=== PATIENT | male | born 1995 | race Caucasian/White ===

== ENCOUNTER → 2024-03-20 | Outpatient (CLI) | payer BC, SELFPAY ==
--- NOTE | 2024-03-20 15:25 | MRI_ITS ---
STUDY: MRI LEFT KNEE REASON FOR EXAM: Male, 28 years old. Pain. TECHNIQUE: Standardized fat and water weighted pulse sequences were obtained in all 3 orthogonal planes. COMPARISON: None. FINDINGS: Normal medial meniscus. Normal hyaline cartilage of the medial femorotibial compartment. Normal medial femoral condyle and tibial plateau. Normal medial collateral ligamentous complex (MCL). Normal distal semimembranosus, gracilis and semitendinosus tendons. Normal lateral meniscus. Normal hyaline cartilage of the lateral femorotibial compartment. Normal lateral femoral condyle and tibial plateau. Normal proximal tibiofibular articulation. Normal lateral collateral (fibular) ligament. Normal popliteus tendon. Normal biceps femoris tendon. Normal anterior cruciate ligament (ACL). Normal posterior cruciate ligament (PCL). Normal congruent patellofemoral articulation. Normal hyaline cartilage of the patellofemoral compartment. Normal medial and lateral patellar retinaculum. Normal quadriceps tendon. Normal patellar tendon. Normal Hoffa''s fat pad. There is a small volume joint effusion. The soft tissues are unremarkable. The otherwise visualized osseous structures are unremarkable. MRI/Lower Ext Joint Only (Routine) IMPRESSION: No ligamentous or meniscal tear. Small joint effusion. Electronically Signed: John Rodgers MD at 8:43 EDT ,
== END | disposition home or self-care (01) ==
LOC: MRI 15:20
PROVIDERS: Referring Provider Anesthesiology; Visit Provider Anesthesiology
DX: M25.562 Pain in left knee (principal)
CPT/HCPCS: 73721

== ENCOUNTER → 2025-01-12 | Outpatient (CLI) | payer BC, SELFPAY ==
--- NOTE | 2025-01-12 18:37 | CT_ITS ---
PROCEDURE: SINUS/FACIAL BONE REASON FOR EXAM: SINUSITIS TECHNIQUE: CT of the paranasal sinuses without contrast. Coronal and Sagittal reconstruction series were provided. One or more dose reduction techniques were used (e.g., Automated exposure control, adjustment of the mA and/or kV according to patient size, use of iterative reconstruction technique). CTDIvol: 33.1 mGy DLP: 871 mGy-cm COMPARISON: None FINDINGS: Frontal: Unremarkable. The frontal recesses appear to be patent. Ethmoid: Trace opacification of an air cell in the right mid aspect of the ethmoid sinus (series 4, image 93). Sphenoid: Mucous retention cyst along the sphenoid septum. The sphenoethmoidal recesses appear slightly narrowed. Maxillary: There is communication of the maxillary sinuses with the middle meatus bilaterally, likely postoperative. Mild polypoid mucosal thickening at the floor of the left maxillary sinus, and at the lateral aspect of the right maxillary sinus. The ostiomeatal complexes are patent bilaterally. Turbinates: Right-sided nasal alanis bullosa. Nasal Septum: There is slight leftward deviation of the anterior nasal septum. Mastoids/Middle Ears: Unremarkable CT/Sinus/Facial Bone IMPRESSION: Minimal sinus disease as detailed above, without significant drainage pathway o bstruction. Reading Location: [facility]
== END | disposition home or self-care (01) ==
PROVIDERS: Visit Provider Otolaryngology
DX: J32.8 Other chronic sinusitis (principal)
CPT/HCPCS: 70486

== ENCOUNTER 2025-04-24 07:16 | Day surgery (SDC) | payer BC, SELFPAY ==
[2025-04-24] MEDS: Lidocaine Jelly 2% 20 ML Syringe (URO-JET) 1 APPLIC (07:24)
[2025-04-24 07:34] VITALS: BP 133/83; PULSE 86; RESP 16; TEMP 35.6; O2SAT 100
--- OUTSIDE RECORDS SUMMARY | 2025-04-24 07:39 | XMS RPT_ITS | CCD ---
Author Organization [facility] Care Team Providers Care Hand Binder Stripper Name Role Phone Jojo KIDD, Alvaro Covarrubias Unavailable [phone] Marco Antonio Monreal PA-C Unavailable [facility] Unavailable Physical Therapy, Gnee Parks Unavailable Orthopedic Provider Unavailable Unavailable [facility], Orthopedics Dept. Unavailable [facility], . [facility] office Unavailable Micah JIMENEZN, Vernell Unavailable Moris KIDD, Lavell Crooks Unavailable Jesús JIMENEZN, Lizet Cervantes Unavailable Unavailable Carin Kang MA Unavailable Unavailable Constantin KIDD, Phi Castillo Unavailable Renay GRIMES, Shante Go Unavailable [phone] Tessie FRIAS, Shante Castillo Unavailable Unavaila dequan Haley RN, Mayte Martino Unavailable Unavailable Edgar GRIMES, Vivian Middleton Unavailable Rober JIMENEZN, Aniya Pino Unavailable Unavailab zoë Donnelly LPN, Caroline Tamayo Unavailable Unavailab zoë Garcia LPN, Helena Unavailable Unavailabl e Isa VP CUSTOMER SERVICE, Nida Unavailable Unavailable Unavailable Unavailable Jeane Stephenson MA Unavailable Unavailable Flor KIDD, Dr. Garces Unavailable [phone] Avani Mckinney Unavailable Unavailable Cardiology Provider Unavailable Unavailable Avani Orantes Unavailable Unavailable CARRIE GOMEZ MD Primary Care Unavailable CARRIE GOMEZ MD Attending Unavailable MARCO ANTONIO MONREAL PAC Referring Unavailable MARCO ANTONIO MONREAL PAC Consulting Unavailable CARRIE GOMEZ MD Admitting Unavailable PROVIDER, UNKNOWN Consulting Unavailable MONREAL, MARCO ANTONIO PAC Primary Care Unavailable MONREAL, MARCO ANTONIO PAC Consulting Unavailable MONREAL, MARCO ANTONIO PAC Attending Unavailable MONREAL, MARCO ANTONIO PAC Admitting Unavailable PROVIDER, UNKNOWN Consulting Unavailable MONREAL, MARCO ANTONIO PAC Consulting Unavailable MONREAL, MARCO ANTONIO PAC Admitting Unavailable MONREAL, MARCO ANTONIO PAC Attending Unavailable MONREAL, MARCO ANTONIO PAC Primary Care Unavailable PROVIDER, UNKNOWN Consulting Unavailable MONREAL, MARCO ANTONIO PAC Consulting Unavailable TRANG VILLALPANDO MD Attending Unavailabl e TRANG VILLALPANDO MD Admitting Unavailabl e TRANG VILLALPANDO MD Primary Care Unavailabl e PROVIDER, UNKNOWN Consulting Unavailable MONREAL, MARCO ANTONIO PAC Primary Care Unavailable MONREAL, MARCO ANTONOI PAC Consulting Unavailable MONREAL, MARCO ANTONIO PAC Attending Unavailable MONREAL, MARCO ANTONIO PAC Admitting Unavailable PROVIDER, UNKNOWN Consulting Unavailable MONREAL, MARCO ANTONIO PAC Primary Care Unavailable MONREAL, MARCO ANTONIO PAC Consulting Unavailable MONREAL, MARCO ANTONIO PAC Attending Unavailable MONREAL, MARCO ANTONIO PAC Admitting Unavailable PROVIDER, UNKNOWN Consulting Unavailable MONREAL, MARCO ANTONIO PAC Primary Care Unavailable MONREAL, MARCO ANTONIO PAC Consulting Unavailable MONREAL, MARCO ANTONIO PAC Attending Unavailable MONREAL, MARCO ANTONIO PAC Admitting Unavailable PROVIDER, UNKNOWN Consulting Unavailable MONREAL, MARCO ANTONIO PAC Primary Care Unavailable MONREAL, MARCO ANTONIO PAC Consulting Unavailable MONREAL, MARCO ANTONIO PAC Admitting Unavailable MONREAL, MARCO ANTONIO PAC Attending Unavailable PROVIDER, UNKNOWN Consulting Unavailable MONREAL PA-C, MARCO ANTONIO J Primary Care Physician [phone] CHRIS CHOW MD Attending Unavailable MONREAL PA-C, MARCO ANTONIO J Primary Care Unavailable [facility], . Unavailable Monreal PA, Marco Antonio Primary Care Provider Dr. Carlito Kearney MD Attending Provider Dr. Edwardo Briseno Unavailable Monreal PA, Marco Antonio Referring Provider Harsha WHITFIELDCHelena Attending Provider Monreal, Marco Antonio Primary Care Unavailable Carlito Kearney Attending Unavailabl e Monreal, Marco Antonio Primary Care Unavailable Edwrado Briseno Attending Unavailable Helena Mcleod Referring Unavailable Monreal, Marco Antonio Primary Care Unavailable Helena Mcleod Attending Unavailable Helena Mcleod Referring Unavailable Monreal, Marco Antonio Primary Care Unavailable Helena Mcleod Attending Unavailable Marco Antonio Monreal Primary Care Unavailable Marco Antonio Monreal Referring Unavailable Helena Mcleod Attending Unavailable Allergies Allergy Classification Reported Allergen(s) Allergy Type Date of Onset Reaction(s) Facility Corticosteroids (1 source) predniSONE Drug Allergy [facility]; [facility] (20 sources) predniSONE; Translations: [prednisone] Drug Allergy 5 abd. pain and bloat, abdominal pain and bloating [facility]; [facility] (20 sources) Penicillin V; Translations: [penicillin] Drug Allergy not specified [facility] ([facility] source) Penicillin Drug Allergy [facility] (1 source) predniSONE Drug Allergy [facility] (1 source) Penicillins Allergy to substance 5 unknown [facility] (1 source) Penicillins Drug allergy (disorder) 5 [facility] (1 source) predniSONE Drug Allergy 5 [facility]ository Medications Current Medications Medication Drug Class(es) Dates Sig (Normalized) Sig (Original) acetaminophen 500 mg oral capsule (3 sources) Start: 04-08-2025 take 1 capsule by mouth every six hours as needed Acetaminophen 500 mg capsule Active 500 mg PO EVERY 6 HOURS as needed April 08, 2025 12:00am Start: 01-12-2020 TYLENOL EXTRA STRENGTH 500 MG TABS 4 tabs daily ACETAMINOPHEN [id number] Alvaro Uribe MD ALPRAZolam 1 mg oral tablet (20 sources) Benzodiazepine Start: 04-07-2025 take 1 tablet by mouth three times daily as needed Alprazolam 1 mg tablet Active 1 mg PO THREE TIMES A DAY as needed April 07, 2025 12:00am Start: 02-16-2025 ALPRAZolam 1 m g tablet ; 1 (one) Tablet three times daily, as needed for 0 days Quantity: 30 {Tablet} Refills: 0 Ordered: 16-Feb-2025 CORNELIO Monreal Start: 16-Feb-2025 Comments: Medication taken as needed. OARRS 12/15/2024 Start: 12-15-2024 ALPRAZolam 1 m g tablet ; 1 (one) Tablet three times daily, as needed for 0 days Quantity: 30 {Tablet} Refills: 0 Ordered: 15-Dec-2024 CORNELIO Monreal Start: 15-Dec-2024 Comments: Medication taken as needed. OARRS 12/15/2024 Start: 10-02-2024 ALPRAZolam 1 m g tablet ; 1 (one) Tablet three times daily, as needed for 0 days Quantity: 30 {Tablet} Refills: 0 Ordered: 02-Oct-2024 CORNELIO Monreal Start: 02-Oct-2024 Comments: Medication taken as needed. OARRS 10/02/2024 Start: 08-18-2024 ALPRAZolam 1 m g tablet ; 1 (one) Tablet three times daily, as needed for 0 days Quantity: 30 {Tablet} Refills: 0 Ordered: 18-Aug-2024 CORNELIO Monreal Start: 18-Aug-2024 Comments: Medication taken as needed. OARRS 06/02/2024iscontinue Ativan Start: 12-03-2023 End: 06-02-2024 ALPRAZolam 1 mg tablet ; 1 ( one) Tablet three times daily, as needed for 0 days Quantity: 30 {Tablet} Refills: 0 Ordered: 02-Jun-2024 CORNELIO Monreal Start: 03-Dec-2023 End: 02-Jun-2024 Status: Inactive Comments: Medication taken as needed. OARRS 12/03/2023 Start: 08-14-2023 ALPRAZolam 0.5 mg tablet ; 1 (one) Tablet three times daily, as needed for 0 days Quantity: 30 {Tablet} Refills: 0 Ordered: 14-Aug-2023 CORNELIO Monreal Start: 14-Aug-2023 Comments: Medication taken as needed. OARRS 06/01/2023 Comment on above: Medication taken as needed. OARRS 06/01/2023 Medication taken as needed. OARRS 12/03/2023 Medication taken as needed. OARRS 06/02/2024iscontinue Ativan Medication taken as needed. OARRS 10/02/2024 Medication taken as needed. OARRS 12/15/2024 Azithromycin (4 sources) Macrolide Antimicrobial Start: Zithromax Z-Westley 250 mg tablet ; 2 (two) Tabs day one, then one daily for 4 days for 0 days Quantity: 1 {Packet} Refills: 0 Ordered: 26-Jan-2025 CORNELIO Monreal Start: 26-Jan-2025 ibuprofen 200 mg oral capsule (1 source) Nonsteroidal Anti-inflammatory Drug Start: take 1 capsule by mouth every six hours as needed Ibuprofen 200 mg capsule Active 200 mg PO EVERY 6 HOURS as needed April 08, 2025 12:00am 24 hr metoprolol succinate 25 mg extended release oral tablet (20 sources) beta-Adrenergic Lupe Start: take 1 tablet by mouth once daily Metoprolol Succinate 25 mg tablet extended release 24 hr Active 25 mg PO daily April 07, 2025 12:00am Start: 01-19-2025 metoprolol suc cinate ER 25 mg tablet,extended release 24 hr ; 1 (one) tablet daily for 0 days Quantity: 90 {Tablet} Refills: 1 Ordered: 19-Jan-2025 CORNELIO Monreal Start: 19-Jan-2025 Start: 12-24-2024 metoprolol suc cinate ER 25 mg tablet,extended release 24 hr ; 1 (one) tablet daily for 0 days Quantity: 30 {Tablet} Refills: 0 Ordered: 24-Dec-2024 CORNELIO Monreal Start: 24-Dec-2024 Start: 10-14-2024 take 1 tablet by rosalva once daily Metoprolol Succinate ER 25 mg oral TABLET extended release TAKE ONE TABLET BY MOUTH DAILY Start Date: 10/14/24 Status: Ordered Repeat number: 1 Start: 10-02-2024 metoprolol suc cinate ER 25 mg tablet,extended release 24 hr ; 1 (one) tablet daily for 0 days Quantity: 30 {Tablet} Refills: 2 Ordered: 02-Oct-2024 RODRIGUEZ Kurtz Start: 02-Oct-2024 ondansetron 8 mg oral tablet (20 sources) Serotonin-3 Receptor Antagonist Start: 04-07-2025 take 1 tablet by mouth three times daily as needed Ondansetron Hcl 8 mg tablet Active 8 mg PO THREE TIMES A DAY as needed April 07, 2025 12:00am Start: 04-15-2024 ondansetron HC L 8 mg tablet ; 1 (one) Tablet three times daily, as needed for 0 days Quantity: 15 {Tablet} Refills: 3 Ordered: 03-Jul-2024 CORNELIO Monreal Start: 03-Jul-2024 Comments: Medication taken as needed. Start: 02-01-2024 ondansetron HC L 4 mg tablet ; 1 (one) Tablet three times daily, as needed for 0 days Quantity: 15 {Tablet} Refills: 1 Ordered: 01-Feb-2024 CORNELIO Monreal Start: 01-Feb-2024 Comments: Medication taken as needed. Start: 09-12-2022 End: 06-01-2023 ondansetron HCL 4 mg tablet ; 1 (one) Tablet three times daily, as needed for 0 days Quantity: 15 {Tablet} Refills: 1 Ordered: 01-Jun-2023 ABHIJIT Kang Start: 12-Sep-2022 End: 01-Jun-2023 Status: Inactive Comments: Medication taken as needed. Comment on above: Medication taken as needed. pantoprazole 40 mg delayed release oral tablet (20 sources) Proton Pump Inhibitor Start: take 1 tablet by mouth once daily Pantoprazole 40 mg tablet,delayed release (DR/EC) Active 40 mg PO daily 90 April 08, 2025 12:00am once daily on an empty stomach Start: 04-08-2025 End: 04-08-2025 take 1 tablet by mouth once daily as needed Pantoprazole (Protonix) 20 mg tablet,delayed release (DR/EC) Discontinued 20 mg PO daily as needed April 08, 2025 12:00am April 08, 2025 10:01am Start: 04-15-2024 End: 10-20-2024 pantoprazole 40 mg tablet,de layed release ; 1 (one) Tablet daily for 0 days Quantity: 30 {Tablet} Refills: 5 Ordered: 20-Oct-2024 RODRIGUEZ Kurtz Start: 15-Apr-2024 End: 20-Oct-2024 Status: Inactive Start: 03-06-2022 End: 05-26-2022 take 1 tablet by mouth once daily Pantoprazole Sodium 40 MG Oral Tablet Delayed Release ; 1 (one) Tablet daily for 0 days Quantity: 30 {Tablet} Refills: 0 Ordered: 26-May-2022 RODRIGUEZ Kurtz Start: 06-Mar-2022 End: 26-May-2022 Status: Inactive take 1 tablet by rosalva twice daily Pantoprazole Sodium 40 MG Oral Tablet Delayed Release ; 1 two times daily (40 MG) Status: Inactive simethicone 250 mg oral capsule (1 source) Start: 04-08-2025 take 1 capsule by mouth once daily as needed Simethicone (Gas-X) 250 mg capsule Active 250 mg PO daily as needed April 08, 2025 12:00am Completed/Discontinued Medications Medication Drug Class(es) Dates Sig (Normalized) Sig (Original) acetaminophen 325 mg / HYDROcodone bitartrate 5 mg oral tablet (20 sources) Opioid Agonist Start: 02-19-2024 End: 02-26-2024 HYDROcodone 5 mg-acetaminophen 325 mg tablet ; 1 (one) tablet every 4-6 hours as needed for severe pain for 7 days Quantity: 28 {Tablet} Refills: 0 Ordered: 19-Feb-2024 CORNELIO Monreal Start: 19-Feb-2024 End: 26-Feb-2024 Status: Inactive Comments: Medication taken as needed. Do not exceed 4 doses in 24 hours Comment on above: Medication taken as needed. Do not exceed 4 doses in 24 hours acetaminophen 325 mg / oxyCODONE hydrochloride 5 mg oral tablet (2 sources) Opioid Agonist Start: 04-23-2014 End: 04-08-2025 Oxycodone-Acetamin ophen 1 TABLET tablet Discontinued 1 - 2 {tbl} PO EVERY 6 HOURS NEEDED as needed for Pain April 23, 2014 12:00am April 08, 2025 9:28am [id number] 200 actuat albuterol 0.09 mg/actuat metered dose inhaler (20 sources) beta2-Adrenergic Agonist Start: 05-27-2024 End: 10-20-2024 take 2 puff(s) by inhalation every four to six hours as needed Ventolin HFA 90 mcg/actuation aerosol inhaler ; 2 (two) puff(s) every 4-6hrs prn for 0 days Quantity: 1 {Each} Refills: 0 Ordered: 20-Oct-2024 RODRIGUEZ Kurtz Start: 27-May-2024 End: 20-Oct-2024 Status: Inactive amoxicillin 500 mg oral tablet (20 sources) Penicillin-class Antibacterial Start: 05-17-2018 End: 05-27-2018 take 1 tablet by mouth three times daily Amoxicillin 500 MG Oral Tablet ; 1 (one) Tablet tid for 10 days Quantity: 30 {Tablet} Refills: 0 Ordered: 17-May-2018 MD Lavell Subramanian Start: 17-May-2018 End: 27-May-2018 Status: Inactive amoxicillin 875 mg / clavulanate 125 mg oral tablet (20 sources) Penicillin-class Antibacterial Start: 12-27-2016 End: 01-06-2017 take 1 tablet by mouth twice daily at mealtime Augmentin 875-125 MG Oral Tablet ; 1 Tab two times daily for 10 days Quantity: 20 {Tablet} Refills: 0 Ordered: 03-Oct-2017 MD Lavell Subramanian Start: 27-Dec-2016 End: 06-Jan-2017 Status: Inactive Comments: Take with food Start: 10-17-2010 End: 10-27-2010 take 1.5 [tsp_us] by mouth three times daily AUGMENTIN, 250-62.5MG/5ML (Oral Suspension Reconstituted) ; 1.5 tsp tid for 10 days Quantity: 300 {Milliliter} Refills: 0 Ordered: 17-Oct-2010 MD Lavell Subramanian Start: 17-Oct-2010 End: 27-Oct-2010 Status: Inactive Comment on above: Take with food benzonatate 200 mg oral capsule (20 sources) Non-narcotic Antitussive Start: 08-18-19 25 End: 10-21-19 25 benzonatate 200 mg capsule ; 1 (one) capsule three times daily, as needed for 0 days Quantity: 30 {Capsule} Refills: 0 Ordered: 20-Oct-2024 RODRIGUEZ Kurtz Start: 18-Aug-2024 End: 20-Oct-2024 Status: Inactive Comments: Medication taken as needed. Comment on above: Medication taken as needed. 24 hr buPROPion hydrochloride 150 mg extended release oral tablet (20 sources) Aminoketone Start: 10-29-19 End: 12-22-19 take 1 tablet by mouth once daily buPROPion HCl ER (XL) 150 MG Oral Tablet Extended Release 24 Hour ; 1 (one) Tablet daily for 0 days Quantity: 60 {Tablet} Refills: 0 Ordered: 21-Dec-2021 CORNELIO Monreal Start: 28-Oct-2021 End: 21-Dec-2021 Status: Discontinued busPIRone hydrochloride 5 mg oral tablet (20 sources) Start: 05-26-20 End: 06-01-20 23 busPIRone 5 mg tablet ; 1 (one) Tablet two times daily for 0 days Quantity: 90 {Tablet} Refills: 0 Ordered: 01-Jun-2023 ABHIJIT Kanganna Start: 26-May-2022 End: 01-Jun-2023 Status: Inactive cephalexin 500 mg oral tablet (20 sources) Cephalosporin Antibacterial Start: 07-11-20 End: 07-18-20 take 1 tablet by mouth three times daily CEPHALEXIN, 500MG (Oral Tablet) ; 1 Tablet TID for 7 days Quantity: 21 {Tablet} Refills: 0 Ordered: 11-Jul-2012 CORNELIO Hernández Start: 11-Jul-2012 End: 18-Jul-2012 Status: Inactive Start: 10-12-2010 End: 10-22-2010 CEPHALEXIN, 250MG/5ML (Oral Suspension Reconstituted) ; 2 (two) Teaspoon(s) three times daily for 10 days Quantity: 300 {Milliliter} Refills: 0 Ordered: 12-Oct-2010 CORNELIO Niño Start: 12-Oct-2010 End: 22-Oct-2010 Status: Inactive doxycycline hyclate 100 mg oral tablet (20 sources) Tetracycline-class Drug Start: 07-28-2024 End: 08-07-2024 doxycycline hyclate 100 mg tablet ; 1 (one) tablet two times daily for 10 days Quantity: 20 {Tablet} Refills: 0 Ordered: 28-Jul-2024 CORNELIO Monreal Start: 28-Jul-2024 End: 07-Aug-2024 Status: Inactive famotidine 20 mg oral tablet (20 sources) Histamine-2 Receptor Antagonist Start: 07-11-2021 End: 08-10-2021 take 1 tablet by mouth twice daily Famotidine 20 MG Oral Tablet ; 1 (one) Tablet two times daily for 30 days Quantity: 60 {Tablet} Refills: 0 Ordered: 11-Jul-2021 CORNELIO Monreal Start: 11-Jul-2021 End: 10-Aug-2021 Status: Inactive take 1 tablet by rosalva th once daily as needed Famotidine 20 MG Oral Tablet ; 1 daily ( 20 MG) Status: Inactive Comments: takes as needed Comment on above: takes as needed FLUoxetine 20 mg oral capsule (20 sources) Serotonin Reuptake Inhibitor Start: 05-26-20 End: 06-01-20 FLUoxetine 20 mg capsule ; 1 (one) Capsule daily for 0 days Quantity: 60 {Capsule} Refills: 0 Ordered: 01-Jun-2023 ABHIJIT Kang Start: 26-May-2022 End: 01-Jun-2023 Status: Inactive LORazepam 1 mg oral tablet (20 sources) Benzodiazepine Start: 06-02-20 End: 08-18-19 LORazepam 1 mg tablet ; 1 (one) tablet three times daily, as needed for 0 days Quantity: 30 {Tablet} Refills: 0 Ordered: 18-Aug-2024 CORNELIO Monreal Start: 02-Jun-2024 End: 18-Aug-2024 Status: Discontinued Comments: Medication taken as needed. OAS 06/02/2024 Comment on above: Medication taken as needed. OAS 06/02/2024 naproxen 500 mg oral tablet (20 sources) Nonsteroidal Anti-inflammatory Drug Start: 03-03-20 End: 07-25-20 take 1 tablet by mouth twice daily Naproxen 500 MG Oral Tablet ; 1 (one) Tablet bid for 0 days Quantity: 60 {Tablet} Refills: 0 Ordered: 25-Jul-2019 RODRIGUEZ Kurtz Start: 03-Mar-2019 End: 25-Jul-2019 Status: Inactive oseltamivir 75 mg oral capsule (20 sources) Neuraminidase Inhibitor Start: 09-14-19 End: 09-19-19 24 oseltamivir 75 mg capsule ; 1 Capsule 2 times per day for 5 days Quantity: 10 {Capsule} Refills: 0 Ordered: 14-Sep-2023 CORNELIO Monreal Start: 14-Sep-2023 End: 7-Feb-2024 Status: Inactive predniSONE 20 mg oral tablet (20 sources) Start: 01-22-20 End: 07-11-20 take 3 tablets by mouth once daily, then take 2 tablets by mouth once daily, then take 1 tablet by mouth once daily, then take 0.5 tablet by mouth once daily predniSONE 20 MG Oral Tablet ; 1 (one) Tablet as directed for 0 days Quantity: 20 {Tablet} Refills: 0 Ordered: 11-Jul-2021 SETH Donnelly Caroline Tamayo Start: 21-Jan-2021 End: 11-Jul-2021 Status: Inactive Comments: Take 3tabs qd for 3 days thenTake 2tabs qd for 3 days thenTake 1tab qd for 3 days thenTake 1/2tab qd for 4 days. Start: 10-08-2019 End: 2020 take 3 tablets by mouth once daily, then take 2 tablets by mouth once daily, then take 1 tablet by mouth once daily, then take 0.5 tablet by mouth once daily predniSONE 20 MG Oral Tablet ; Tablet for 0 days Quantity: 20 {Tablet} Refills: 0 Ordered: 28-Jun-2020 RODRIGUEZ Kurtz Start: 08-Oct-2019 End: 28-Jun-2020 Status: Inactive Comments: Take 3tabs qd for 3 days thenTake 2tabs qd for 3 days thenTake 1tab qd for 3 days thenTake 1/2tab qd for 4 days. Comment on above: Take 3tabs qd for 3 days thenTake 2tabs qd for 3 days thenTake 1tab qd for 3 days thenTake 1/2tab qd for 4 days. sertraline 25 mg oral tablet (20 sources) Serotonin Reuptake Inhibitor Start: End: take 1 tablet by mouth once daily Sertraline HCl 25 MG Oral Tablet ; 1 (one) Tablet daily for 30 days Quantity: 30 {Tablet} Refills: 0 Ordered: 09-Sep-2020 CORNELIO Monreal Start: 09-Sep-2020 End: 09-Oct-2020 Status: Inactive sucralfate 1000 mg oral tablet (20 sources) Aluminum Complex take 1 tablet by mouth once daily Carafate 1 GM Oral Tablet ; daily (1 GM) Status: Inactive sulfamethoxazole 800 mg / trimethoprim 160 mg oral tablet (20 sources) Dihydrofolate Reductase Inhibitor Antibacterial, Sulfonamide Antimicrobial Start: 024 End: sulfamethoxazole 800 mg-trimethoprim 160 mg tablet ; 1 (one) tablet two times daily for 5 days Quantity: 10 {Tablet} Refills: 0 Ordered: 23-Jan-2024 CORNELIO Monreal Start: 23-Jan-2024 End: 28-Jan-2024 Status: Inactive SUMAtriptan 50 mg oral tablet (20 sources) Serotonin-1b and Serotonin-1d Receptor Agonist Start: 024 End: SUMAtriptan 50 mg tablet ; 1 (one) tablet as needed for 0 days Quantity: 10 {Tablet} Refills: 0 Ordered: 20-Oct-2024 RODRIGUEZ Kurtz Start: 15-Apr-2024 End: 20-Oct-2024 Status: Inactive Comments: Medication taken as needed. Comment on above: Medication taken as needed. traZODone hydrochloride 100 mg oral tablet (20 sources) Serotonin Reuptake Inhibitor Start: End: take 1 tablet by mouth at bedtime traZODone HCl 100 MG Oral Tablet ; 1 (one) Tablet at bedtime for 0 days Quantity: 90 {Tablet} Refills: 1 Ordered: 26-May-2022 CORNELIO Monreal Start: 06-Mar-2022 End: 26-May-2022 Status: Inactive Problems Active Problems Problem Classification Problem Date Documented Da te Episodic/Chronic Abdominal pain (20 sources) Abdominal pain; Translations: [Unspecified abdominal pain] 06-01-2023 Episodic Anxiety disorders (20 sources) Anxiety; Translations: [Anxiety disorder, unspecified] 08-14-2023 Chronic Cardiac dysrhythmias (20 sources) Palpitations - rapid; Translations: [Palpitations] 07-28-2024 Episodic Conditions associated with dizziness or vertigo (1 source) Dizziness 10-14-2024 Episodic Diseases of mouth; excluding dental (20 sources) Aphthous ulceration of skin and/or mucous membrane; Translations: [Recurrent oral aphthae] 06-01-2023 Episodic Disorders of teeth and jaw (20 sources) Infection of tooth; Translations: [Periapical abscess without sinus] 05-17-2018 Episodic Esophageal disorders (20 sources) Gastroesophageal reflux disease; Translations: [Gastro-esophageal reflux disease without esophagitis] 06-01-2023 Chronic Fluid and electrolyte disorders (20 sources) Hypokalemia; Translations: [Hypokalemia] 09-18-2023 Episodic Genitourinary symptoms and ill-defined conditions (20 sources) Dysuria; Translations: [Dysuria] 02-24-2019 Episodic Headache; including migraine (20 sources) Migraine; Translations: [Migraine, unspecified, not intractable, without status migrainosus] 04-15-2024 Chronic Immunizations and screening for infectious disease (20 sources) Patient encounter status; Translations: [Encounter for screening for infections with a predominantly sexual mode of transmission] 09-09-2020 Episodic Influenza (20 sources) Influenza due to Influenza B virus; Translations: [Influenza due to other identified influenza virus with other respiratory manifestations] 09-14-2023 Episodic Malaise and fatigue (20 sources) Fatigue; Translations: [Other fatigue] 06-01-2023 Episodic Mood disorders (20 sources) Major depressive disorder; Translations: [Major depressive disorder, single episode, unspecified] 06-01-2023 Chronic Nausea and vomiting (20 sources) Nausea; Translations: [Nausea] Onset: 5 06-01-2023 Episodic Nonmalignant breast conditions (20 sources) Gynecomastia; Translations: [Hypertrophy of breast] 11-14-2010 Episodic Nonspecific chest pain (20 sources) Chest pain; Translations: [Chest pain, unspecified] 06-02-2024 Episodic Other acquired deformities (2 sources) Spondylolysis; Translations: [Spondylolysis, lumbar region] Onset: 0 01-12-2020 Chronic Other connective tissue disease (2 sources) Synovial cyst; Translations: [Other bursal cyst, unspecified site] Onset: 0 01-12-2020 Episodic Other connective tissue disease (20 sources) Pain in lower limb; Translations: [Pain in leg, unspecified] 03-03-2019 Episodic Other connective tissue disease (20 sources) Disorder of back; Translations: [Other symptoms and signs involving the musculoskeletal system] 08-18-2010 Episodic Other gastrointestinal disorders (20 sources) Diarrhea; Translations: [Diarrhea, unspecified] 06-01-2023 Episodic Other gastrointestinal disorders (5 sources) Dysphagia; Translations: [Dysphagia, unspecified] 03-31-2025 Episodic Other gastrointestinal disorders (1 source) Dysphagia, unspecified; Translations: [Dysphagia, unspecified] Onset: Episodic Other gastrointestinal disorders (1 source) Other dysphagia; Translations: [Other dysphagia] Onset: Episodic Other injuries and conditions due to external causes (20 sources) Injury of shoulder region; Translations: [Unspecified injury of shoulder and upper arm, unspecified arm, initial encounter] 05-19-2016 Episodic Other injuries and conditions due to external causes (20 sources) Injury of finger; Translations: [Unspecified injury of unspecified wrist, hand and finger(s), initial encounter] 04-21-2014 Episodic Other lower respiratory disease (20 sources) Dyspnea; Translations: [Shortness of breath] 05-27-2024 Episodic Other lower respiratory disease (20 sources) Snoring; Translations: [Snoring] 05-27-2024 Episodic Other lower respiratory disease (20 sources) Cough; Translations: [Cough] 08-18-2024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 days. The course has been without change. The pain is characterized as a moderate sharp stabbing and burning sensation. The pain is described as being located in the right shoulder and is aggravated by any movement and overhead activity. There are no relieving factors. Note for Shoulder pain: He injured it playing foot ball. He tried to tackle a player , felt a pop in right shoulder. Other player even reported he felt the pop himself. No previous shoulder injuries. He strated rubbing under his axilla and felt arm pop into place. 04-28-2015 Unclassified (20 sources) Finger Injury - Pt here this afternoon because he was playing Kickball at school and pt jammed his 5th finger of left hand into another students shoulder. Finger is deformed and painful. Also ecchymotic. Has been using ice to finger since injury happened this morning. reviewed by [facility] 04-21-2014 Unclassified (20 sources) Shoulder pain - The onset of the shoulder pain has been acute and has been occurring in a persistent pattern for 6 weeks. The course has been an increasing. The pain is characterized as a moderate sharp stabbing. The pain is described as being located in the left shoulder and is aggravated by lifting. The symptoms have been associated with painful ROM. Note for Shoulder pain: Was seen in office with left shoulder injury in December. reviewed by [facility] 06-12-2012 Unclassified (20 sources) Shoulder Pain - The onset of the shoulder pain has been gradual following an incident not at work (Pt jumped off of the ground and landed on a platform and rammed left shoulder into platform. Platform was gravel.) and has been occurring for 1 day. The shoulder pain is characterized as a sharp stabbing. The shoulder pain is described as being located in the left shoulder. The shoulder pain is aggravated by any movement, overhead activity and lifting. Relieving factors include nothing (Took some ibuprofen but it ddi not help.). Note for Shoulder Pain: reviewed by [facility] 12-15-2011 Unclassified (20 sources) Neck Pain - The onset of the neck pain has been sudden and has been occurring in a persistent pattern for 2 hours. The course has been constant. The neck pain is described as a moderate sharp stabbing. The neck pain is described as being located in the midline of neck and radiating no where. Aggravating factors include twisting, flexion and extension. The pain is relieved by nothing (keeping pressure on neck seems to provide some relief). There are no associated features gait abnormality, fever, shoulder pain, arm weakness or paresthesias in arms. The neck pain was preceeded by trauma (was playing dodge ball at school this AM and dove into the wall - head snapped backward). There have been no previous diagnostic tests. There have been no previous evaluations. There has been no previous physical therapy. There has been no previous neck surgery. There has been no use of assistive devices. There has been no previous medications. 11-30-2011 Unclassified (20 sources) Back pain - The onset of the pain has been gradual (Was playing tackle football and he got tackled and someone landed on top of him and since then back has been hurting.) and has been occurring for 1 month. The course has been increasing. The pain is located in the lower back and does not radiate. Note for Back pain: Describes pain as pulling type pain. Depending on way he moves or lifts his legs depnds on pain. Dad cracked his back once and that helped a little. Uses some Ibuprofen at times and that helps little. reviewed by [facility] 10-23-2011 Unclassified (20 sources) Form Completion Physicals - The patient feels well with no complaints, has good energy level and is sleeping well. There are no current symptoms. The patient exercises weekly. The patient eats a variety of foods and sleeps on average 9 hours per night. Safety measures include appropriate use of safety belts. There are no behavioral problems. Last tetanus vaccination: Date: (2009). Note for Form Completion Physicals: Plans to play track at school - this will be his first year doing that - has played football in the past. 10-13-2011 Unclassified (20 sources) painful breast area - Painful lumps in breast areas for the last two weeks. 11-14-2010 Unclassified (20 sources) Recheck toe - pt saw [facility] for sore, swollen right great toe, some drainage. Pt is on cephalexin tid and soaks toe tid but is not getting better 10-17-2010 Unclassified (20 sources) Painful toe - Rt great toe red, swollen and painful. 2 weeks ago injured toe by kicking back of step at school - toenail actually broke off. Purulent drainage noted and still quite painful, no redness, no fever 10-12-2010 Unclassified (20 sources) Finger pain - The patient is not currently being treated for this problem. Symptoms are exacerbated by moving the finger. The injury resulted from forceful hyperextension. This occurred 4 day(s) ago at school. The pain is located in the of the left little finger. Symptoms include pain and swelling. The patient describes the pain as aching. The patient describes the pain as moderate in severity. 09-26-2010 Unclassified (20 sources) right back discomfort - Pt was injured in right side of back approximately 3 months ago. No bruise noted. Pt only c/o discomfort on and off with increased activity or twisting motion. Today pt c/o pain again with increased activity. No c/o dysuria or abd pain; no blood in urine; no increased pain after eating. No fever, no skin color changes 08-18-2010 Unclassified (20 sources) Rt toe injury - Injured rt great toe 10 days ago and has not improved. Continues with pain and swelling. 05-18-2010 Unclassified (20 sources) Cold Symptoms - Symptoms include sneezing, nasal congestion, runny nose, sore throat, dry cough, fever (102F this morning), chills, general malaise (body aches and fatigue) and headache, but do not include productive cough or wheezing. The onset was sudden hour(s) ago (Patient woke up with symptoms this morning.). The symptoms occur constantly. The patient describes this as moderate in severity and worsening. Current treatment includes non-prescription cold medication (dayquil) and acetaminophen. The patient has been exposed to an individual with similar symptoms (Patient's son recently tested positive for influenza B). Patient denies history of seasonal allergies, recurrent sinusitis, recurrent strep pharyngitis, tonsillectomy or recurrent ear infections. 09-14-2023 Unclassified (20 sources) UTI - Symptoms include dysuria, urinary frequency, abdominal pain and back pain (lower back), but do not include urinary urgency, hematuria or malodorous urine. The pain is located in the left lower abdomen, in the left lumbar area, in the right lower abdomen and in the right lumbar area. There is no radiation. The patient describes the pain as dull and aching. Onset was gradual 1 week(s) ago (1-2 weeks). There is no known event that preceded symptom onset. The symptoms occur constantly. The patient describes this as moderate in severity and worsening. Associated symptoms include chills (last night), but do not include fever, nausea, vomiting, urinary incontinence or urethral discharge. 01-23-2024 Unclassified (20 sources) Abdominal pain - The onset of the abdominal pain has been sudden and has been occurring in a persistent pattern for days. The course has been constant. The pain is described as a mild dull ache and pressure sensation. The pain is located in the right lower quadrant and left lower quadrant. The symptoms have no aggravating factors but have no relieving factors. The symptoms have been associated with constipation (maybe some), fever (Patient has felt feverish, but has not checked his temperature), heartburn, nausea and vomiting, while the symptoms have not been associated with bloating, bloody stools, chest pain, diarrhea or weight loss. Previous evaluations have included CT scan (Patient had a non contrast CT that showed only a moderate stool burden). Note for Abdominal pain: Patient reports that he was having back and flank pain and is now having abdominal pain as well.He has a history of a spinal cyst and is concerned that this could be causing his pain. 02-01-2024 Unclassified (20 sources) Abdominal pain - The onset of the abdominal pain has been sudden and has been occurring in a persistent pattern for 4 days. The course has been constant. The pain is described as a mild dull ache and pressure sensation. The pain is located in the entire abdomen and does not radiate. The symptoms have no aggravating factors but have no relieving factors. The symptoms have been associated with constipation (Patient reports that he has been having some constipation the last several days.) and nausea (Patient reports that the nausea has been going one for several weeks.), while the symptoms have not been associated with bloating, bloody stools, chest pain, diarrhea, dysuria, fever, vomiting or weight loss. Previous evaluations have included CT scan (normal CT scan earlier this year). Note for Abdominal pain: Patient reports that Zofran his helpful to a certain extent. He wonders if a higher dose would be more effective. Patient has a history of GERD and has not had any of his antacid to take.He does report that has had some increased stress with his family and other factors. He has started wearing glasses in the last month and reports an increase in the number of migraines he has. He had these only occasionally in the past. He reports that OTC medications have not been effective. 04-15-2024 Unclassified (20 sources) Breathing trouble - The onset of the breathing trouble has been gradual and has been occurring in an intermittent pattern for 1 month (Patient reports that this has been a mild problem for several years, but has progressively worsened in the last 1 month.). The course has been recurrent. The breathing trouble is mild to moderate. It is described as tightness, shortness of breath and wheezing. The breathing trouble occurs with normal activities (Patient has noted this happening when he is resting and not when he is exerting himself. He reports that it Feels like I forget to breath.). The symptoms have been associated with anxiety (Patient has a history of anxiety, but denies any increase in anxiety recently.) and wheezing, but have not been associated with chest pain, coughing, fever / chills, muscle weakness, orthopnea, palpitations, swelling of calf, swelling of feet or weight loss. Note for Breathing trouble: Patient reports that he feels congested and like he cannot breath out of his nose most of the time. He does not currently take any kind of allergy medications.Patient reports that he feels very short of breath when exposed to cigarette smoke.Patient also reports snoring and waking up short of breath during the night. 05-27-2024 Unclassified (1 source) Follow up consultation - The patient is here to follow-up after Emergency Room/Urgent Care (Patient was seen at [facility] on 05/30/2024 for Acute Dyspnea and Anxiety Reaction. No new medications were started. Patient was discharged to home.). Current symptoms include chest pain (is having pain of the center of his chest, is more of an achy pain. Is better today than it was.), headache (constant headache since Sunday) and low back pain. Note for Consultation follow-up: Patient is scheduled this Sunday for PFT testing.On Sunday and Sunday, his whole body felt sore and painful. He slept most of the day on Sunday and and rested. Patient states that he barely remembers anything from Sunday.He has an appointment with Chiropractor later this afternoon. 06-02-2024 Unclassified (20 sources) [ADDITIONAL REASON] Transition into care - The patient is transitioning into care from an emergency room ([facility] 05/30/2024) and a summary of care was reviewed. 06-02-2024 Unclassified (20 sources) Follow up consultation - The patient is here to follow-up after Emergency Room/Urgent Care (Patient was seen at [facility] on 05/30/2024 for Acute Dyspnea and Anxiety Reaction. No new medications were started. Patient was discharged to home.). Current symptoms include chest pain (is having pain of the center of his chest, is more of an achy pain. Is better today than it was.), headache (constant headache since Sunday) and low back pain. Note for Consultation follow-up: Patient is scheduled this Sunday for PFT testing.On Sunday and Sunday, his whole body felt sore and painful. He slept most of the day on Sunday and and rested. Patient states that he barely remembers anything from Sunday.He has an appointment with Chiropractor later this afternoon for his back. His back pain has been much better since he started seeing pain management and had spinal injections.Patient reports that he has had a couple more episodes of increased heart rate since discharge, but was able to calm himself down during these episodes.Patient usually takes alprazolam to help with his anxiety as needed. He finds that this medication helps, but makes him fall asleep, making him avoid using it during the day. He was given Ativan in the ER and found that he responded better to this medication. He has tried several daily medications without success in the past. 06-02-2024 Unclassified (10 sources) Transition into care - The patient is transitioning into care from an emergency room ([facility] 05/30/2024) and a summary of care was reviewed. 06-02-2024 Unclassified (10 sources) [ADDITIONAL REASON] Follow up consultation - The patient is here to follow-up after Emergency Room/Urgent Care (Patient was seen at [facility] on 05/30/2024 for Acute Dyspnea and Anxiety Reaction. No new medications were started. Patient was discharged to home.). Current symptoms include chest pain (is having pain of the center of his chest, is more of an achy pain. Is better today than it was.), headache (constant headache since Sunday) and low back pain. Note for Consultation follow-up: Patient is scheduled this Sunday for PFT testing.On Sunday and Sunday, his whole body felt sore and painful. He slept most of the day on Sunday and and rested. Patient states that he barely remembers anything from Sunday.He has an appointment with Chiropractor later this afternoon for his back. His back pain has been much better since he started seeing pain management and had spinal injections.Patient reports that he has had a couple more episodes of increased heart rate since discharge, but was able to calm himself down during these episodes.Patient usually takes alprazolam to help with his anxiety as needed. He finds that this medication helps, but makes him fall asleep, making him avoid using it during the day. He was given Ativan in the ER and found that he responded better to this medication. He has tried several daily medications without success in the past. 06-02-2024 Unclassified (1 source) Cold Symptoms - Symptoms include nasal congestion, scratchy throat, productive cough, general malaise and facial pain. The onset was gradual 1 month(s) ago. The symptoms occur constantly. The patient describes this as mild and unchanged. Current treatment includes acetaminophen and Dayquil, doxy . Risk factors do not include child in daycare or smoking. Note for Upper respiratory infection: feels like its all sitting in chest 08-18-2024 Unclassified (20 sources) Cold Symptoms - Symptoms include nasal congestion, scratchy throat, productive cough and general malaise, but do not include runny nose, ear pain, wheezing, fever, chills, headache or facial pain. The onset was gradual 1 month(s) ago. The symptoms occur constantly. The patient describes this as mild and unchanged. Current treatment includes non-prescription cold medication, antibiotics (Patient has almost completed the course of doxycycline he was started on) and acetaminophen. Risk factors do not include child in daycare or smoking. The patient has not been exposed to an individual with similar symptoms. Patient denies history of seasonal allergies, recurrent sinusitis or asthma. Note for Upper respiratory infection: Patient feels that the symptoms in his head have improved, but the symptoms in his chest have not.Patient reports that he did not have a good reaction with taking Ativan at night and would like to switch back to Xanax if possible. 08-18-2024 Unclassified (18 sources) Palpitations - The symptoms first began 2 day(s) ago (Patient has a history of recurrent palpitations, for which he has been referred to cardiology, but his symptoms have worsened in the last 2-3 days.). The onset has been spontaneous. Each episode lasts approximately 60 minutes. The symptoms occur 5 time(s) per day . The symptoms are getting worse. The palpitations are described as fast and fluttering. Associated features include arm pain (occasionally muscle tension feeling down right side), dizziness, heaviness (in face when he has heart palpitations), nausea, shortness of breath, tightness, tired/fatigue and weakness, but do not include faintness or jaw pain. There are no precipitating factors. Aggravating factors include meals (at times). There are no relieving factors. Note for Palpitations: pt states has appt at cardiology on 10/14/24 10-02-2024 Unclassified (2 sources) Follow up for multiple chronic conditions - The patient is here for follow-up of anxiety and other condition(s) (Acid Reflux, MOUSTAPHA). The patient has stopped the recommended medications (he has not taken the pantoprazole for about 4-5 months. He will take OTC Gas-X that helps with the acid reflux and burping.). The patient has an active lifestyle but no regular exercise program. The patient's out of office blood pressure checks occur occasionally (will check when he does not feel good) and dietary compliance is fairly good usually adhering to recommendations (appetite has increased). The patient states that there are no vision changes or weakness, weight has decreased (2lbs since WADE), in general mood has improved (mood is better but still has times that he will become irritable and short-tempered.) and headaches have been noticed occasionally (been happening more frequently). Note for Multiple chronic conditions follow-up: Patient states that he will being focusing on something and will have periods that he stops breathing. He becomes short of breath at rest or with activity. He is only able to breathe out of one nostril. 10-20-2024 Unclassified (13 sources) [ADDITIONAL REASON] Transition into care - The patient is transitioning into care from another physician ([facility] 10/14/2024 Dr. Chow. Patient was ordered to have echo and tilt test done ( he was advised to stop taking metoprolol two weeks before the tilt test). He has follow-up appointment in December 2024.) and an electronic summary of care was not available. 10-20-2024 Unclassified (11 sources) Follow up for multiple chronic conditions - The patient is here for follow-up of anxiety and other condition(s) (Acid Reflux, MOUSTAPHA). The patient has stopped the recommended medications (he has not taken the pantoprazole for about 4-5 months. He will take OTC Gas-X that helps with the acid reflux and burping.). The patient has an active lifestyle but no regular exercise program. The patient's out of office blood pressure checks occur occasionally (will check when he does not feel good) and dietary compliance is fairly good usually adhering to recommendations (appetite has increased). The patient states that there are no vision changes or weakness, weight has decreased (2lbs since WADE), in general mood has improved (mood is better but still has times that he will become irritable and short-tempered.) and headaches have been noticed occasionally (been happening more frequently). Note for Multiple chronic conditions follow-up: Patient states that he will being focusing on something and will have periods that he stops breathing. He becomes short of breath at rest or with activity. He is only able to breathe out of one nostril. Patient reports that he has chronic nasal congestion that has not improved with antihistamine or Flonase.Patient reports that his palpitations have been improved since starting Metoprolol. He has seen cardiology and is being scheduled for an echo and tilt test. 10-20-2024 Unclassified (2 sources) Transition into care - The patient is transitioning into care from another physician ([facility] 10/14/2024 Dr. Chow. Patient was ordered to have echo and tilt test done ( he was advised to stop taking metoprolol two weeks before the tilt test). He has follow-up appointment in December 2024.) and an electronic summary of care was not available. 10-20-2024 Unclassified (2 sources) [ADDITIONAL REASON] Follow up for multiple chronic conditions - The patient is here for follow-up of anxiety and other condition(s) (Acid Reflux, MOUSTAPHA). The patient has stopped the recommended medications (he has not taken the pantoprazole for about 4-5 months. He will take OTC Gas-X that helps with the acid reflux and burping.). The patient has an active lifestyle but no regular exercise program. The patient's out of office blood pressure checks occur occasionally (will check when he does not feel good) and dietary compliance is fairly good usually adhering to recommendations (appetite has increased). The patient states that there are no vision changes or weakness, weight has decreased (2lbs since WADE), in general mood has improved (mood is better but still has times that he will become irritable and short-tempered.) and headaches have been noticed occasionally (been happening more frequently). Note for Multiple chronic conditions follow-up: Patient states that he will being focusing on something and will have periods that he stops breathing. He becomes short of breath at rest or with activity. He is only able to breathe out of one nostril. Patient reports that he has chronic nasal congestion that has not improved with antihistamine or Flonase.Patient reports that his palpitations have been improved since starting Metoprolol. He has seen cardiology and is being scheduled for an echo and tilt test. 10-20-2024 Unclassified (4 sources) Cold Symptoms - Symptoms include nasal congestion, runny nose, ear pain, sore throat (from cough), dry cough, productive cough, general malaise, headache and facial pain, but do not include scratchy throat, hoarseness, wheezing (has chest congestion), fever or chills. The onset was gradual 2 week(s) ago. The symptoms occur constantly. The patient describes this as moderate in severity and worsening. Current treatment includes non-prescription cold medication, NSAIDs (advil sinus) and home remedies. Risk factors do not include child in daycare or smoking. The patient has been exposed to an individual with similar symptoms (son and fiance). Patient denies history of seasonal allergies, recurrent sinusitis or recurrent strep pharyngitis. 01-26-2025 Results Test Name Value Interpretation Reference Range Facility Gastroenterology Visit Repor ton 04-08-2025 Gastroenterology Visit Report [facility] [address] [place] [address] OFFICE VISIT Date of Service: 04/08/25 MR#: [id number] Acct: [id number] Name: KATHRYN NORMAN Jr. Rep #: [id number] : 1995 Provider: TOOTIE blackwell Age/Sex: 29/M Location: [facility] – [place] Status: Signed Intake Vital Signs 04/23/14 12:15 04/08/25 09:39 Height 5 ft 11 in 5 ft 11 in Weight: 187 lb 8 oz BMI 26.1 BP 134/84 H Respiration 16 Pulse 76 Temp 98.5 F Temp Source Temporal Pulse Oximetry (%) 97 Oxygen Delivery Method room air Intake Visit Reasons: Dysphagia Chief Complaint: can't burp Environmental Aide Required: No Accompanied by: Self Is patient in pain?: No Allergies prednisone Allergy (Intermediate, Verified 04/08/25 09:34) abdominal pain and bloating Penicillins Allergy (Mild, Verified 04/08/25 09:34) unknown Medications ???Medication ???Instructions ???Recorded ???Confirmed ???Type alprazolam 1 mg tablet 1 mg PO TID PRN 04/07/25 04/07/25 History metoprolol succinate 25 mg 25 mg PO QDAY 04/07/25 04/07/25 Hi story tablet,extended release 24 hr ondansetron HCl 8 mg tablet 8 mg PO TID PRN 04/07/25 04/07/25 History acetaminophen 500 mg capsule 500 mg PO Q6H PRN 04/08/25 5 History ibuprofen 200 mg capsule 200 mg PO Q6H PRN 04/08/25 5 History pantoprazole 40 mg tablet,delayed 40 mg PO QDAY #90 tabs 04/08/25 0 04/08/25 Rx release simethicone 250 mg capsule (Gas-X) 250 mg PO QDAY PRN 04/08/2503/14 History PFSH Medical History (Updated 04/08/25 @ 12:40 by TOOTIE Collier) Back problem Seasonal allergies Diarrhea Abdominal pain Aphthous ulcer Sinusitis Malar rash Hypokalemia Lower back pain Anxiety Migraines Acid reflux Moderate obstructive sleep apnea Recurrent major depressive disorder, in full remission Rapid palpitations Encounter for screening for COVID-19 Surgical History History of shoulder surgery History of appendectomy History of cholecystectomy Family History Other Alcoholism Blood clot in vein Diabetes Hypertension Social History Smoking Status: Former smoker how long ago did patient quit smoking: occasional cigar in the past alcohol intake: current details: rarely substance use type: does not use what type of physical activity do you participate in: none HPI HPI Chief Complaint: can't burp Details: EGD 02/2022 - Dr. Rodgers The scope was advanced through the proximal esophagus, which is unremarkable. The mucosal surfaces appear unremarkable. In the distal esophagus, there is a hiatal hernia and some patchy pink erythema. The scope was passed beyond this area, retroflexed, and the fundus and GE junction viewed from below. The scope was straightened out. Fluid and mucus were irrigated and suctioned. The scope was advanced into the distal gastric body, where there was some patchy erythema which is mild. The scope was advanced into the second portion of the duodenum and then withdrawn with circumferential visualization. The bulb, pylorus and antrum were carefully viewed. The rest of the gastric body was viewed. The scope was withdrawn with decompression. The rest of the gastric body again was carefully examined. Protonix 40 mg p.o. daily for a minimum of one month. In addition, it should be remembered that this should be taken in the afternoon one hour before his evening meal. In addition, I will place him on a short course of liquid Carafate 1 gram p.o. 4 times daily one hour before eating as well as at bedtime. If he does not resolve his problems adequately, we will provide an ultrasound of the gallbladder and consider a HIDA scan for biliary dyskinesia if that is negative. HIDA EF 75% - very rarely able to burp - bubbles, like sticking a straw into water and blowing bubbles - pressure applied to his stomach has pushed up air bubbles into esophagus causes terrible trapped gas pain - resulting in significant pressure buildup in the chest area, described as feeling like air trapped behind the chest bones. Occasionally, these episodes culminate in dry heaving, nausea, and headaches. - Gas-X - does not have trouble swallowing - nausea but denies any emesis, but will have dry heaves to try and release air pockets - occasional HB - he has been in protonix PRN for 3 years after presenting to ER with chest pain - EGD revealed a HH causing reflux and had CCX with Dr. Rodgers - pantoprazole maybe once a week - trouble burping has gotten worse since CCX - trapped air is worse post CCX - denies any weight loss - denies any family h/o esophageal disor (more content not included)... Normal [facility] Sinus/Facial Boneon 01-13-20 Sinus/Facial Bone [facility] Imaging Services [address] [place] [address] Sinus/Facial Bone MR#: [id number] Acct: [id number] Name: KATHRYN NORMAN JrMartha Rep #: [id number] : 1995 M 29 From: Darryl Traore MD PCP: MARJORIE Tavera Status: REG CLI Study: Sinus/Facial Bone Date of Exam: 01/12/25 Exam# [id number] Ordering Dr: Carlito Kearney MD PROCEDURE: SINUS/FACIAL BONE REASON FOR EXAM: SINUSITIS TECHNIQUE: CT of the paranasal sinuses without contrast. Coronal and Sagittal reconstruction series were provided. One or more dose reduction techniques were used (e.g., Automated exposure control, adjustment of the mA and/or kV according to patient size, use of iterative reconstruction technique). CTDIvol: 33.1 mGy DLP: 871 mGy-cm COMPARISON: None FINDINGS: Frontal: Unremarkable. The frontal recesses appear to be patent. Ethmoid: Trace opacification of an air cell in the right mid aspect of the ethmoid sinus (series 4, image 93). Sphenoid: Mucous retention cyst along the sphenoid septum. The sphenoethmoidal recesses appear slightly narrowed. Maxillary: There is communication of the maxillary sinuses with the middle meatus bilaterally, likely postoperative. Mild polypoid mucosal thickening at the floor of the left maxillary sinus, and at the lateral aspect of the right maxillary sinus. The ostiomeatal complexes are patent bilaterally. Turbinates: Right-sided nasal alanis bullosa. Nasal Septum: There is slight leftward deviation of the anterior nasal septum. Mastoids/Middle Ears: Unremarkable CT/Sinus/Facial Bone IMPRESSION: Minimal sinus disease as detailed above, without significant drainage pathway obstruction. Reading Location: [id number] CC: Dr. Carlito Kearney MD; MARJORIE Tavera Tax Agent: Signed Normal [facility] CV ECHO COMPLETEon CV ECHO COMPLETE [place] [address] Patient: ESTER KATHRYN LUQUE Phone#: : 1995 Age: 29 Gender: M Pt. Type: Out Account: [id number] Location: [facility] Ordering: TRANG VILLALPANDO Exam Date: 10/22/2024/13:12 Family Phys: MARCO ANTONIO MONREAL Charge Code: 648255 Physician: Ventura Order #: [id number] Dose#: PROCEDURE: ECHOCARDIOGRAM WITH DOPPLER AND COLOR FLOW HISTORY: Patient is a 29-year-old male with palpitations INDICATIONS: Palpitations COMPARISON: None. TECHNIQUE: A 2-D ultrasound, color spectral Doppler and M-mode evaluation of the heart and great vessels. PATIENT MEASUREMENTS: Height (in.): 72 BSA: 2.02 Weight (lbs.): 176 BP: 126/73 Lombardi Developer: JONNIE M MODE 2D MEASUREMENTS AND CALCULATIONS: LVIDd: 5.10 cm LVIDs: 3.21 cm IVSd: 0.69 cm LVPWd: 0.74 cm LVOT diam: 2.25 cm FS: 37.04 % Ao Root diam: 2.60 cm LA diam: 4.0 cm LA Volume Index: 13.2 mL/m2 LA A4 Area: 11.79 cm2 RA A4 Area: 50.7 cm2 RVDd: 3.8 cm TAPSE: 20 mm DOPPLER MEASUREMENTS AND CALCULATIONS MITRAL MV E MAX danile: 0.63 m/s MV A MAX daniel: 0.48 m/s MV E-A ratio: 1.32 MVA VTI 3.79 cm2 MV V2 max: 0.62 m/s MV max P.54 mm[Hg] Continued Report - Page 2 of 3 Patient: KATHRYN NORMAN JR Phone#: : 1995 Age: 29 Gender: M Pt. Type: Out Account: [id number] Location: 052 Ordering: TRANG VILLALPANDO Exam Date: 10/22/2024/13:12 Family Phys: MARCO ANTONIO MONREAL Charge Code: [id number] Physician: Ventura Order #: [id number] Dose#: MV V2 mean: 0.36 m/s MV mean P.59 mm[Hg] MV V2 VTI: 19.06 cm MV PHT: 75.08 ms MVA PHT 2.93 cm2 Lat Peak E' Daniel 13 cm/sec Septal Peak E' DANIEL 11 cm/sec E/E' lateral 5 E/E' medial 5.6 AORTIC Ao V2 max: 0.93 m/s Ao max P.44 mm[Hg] Ao V2 mean: 0.74 m/s Ao mean P.33 mm[Hg] Ao V2 VTI: 17.43 cm FESTUS (V Max): 3.97 cm2 FESTUS (VTI): 4.14 cm2 LV V1 Max 0.92 m/s LV V1 Max PG 3.41 mm[Hg] LV V1 Mean PG 1.77 mm[Hg] LV V1 mean 0.62 m/s LV V1 VTI 18.10 cm PULMONIC PA V2 Max 0.94 m/s PA Max PG 3.50 mm[Hg] TRICUSPID RVSP 2D/M-MODE AND COLOR FLOW LEFT VENTRICLE: Left ventricle is normal in size and thickness. Systolic ejection fraction is 55-60% with normal wall motion. Normal diastolic function. WALL MOTION: 1 - Basal anterior: Normal. 7 - Mid anterior: Normal. 13 - Apical anterior: Normal. 2 - Basal anteroseptal: Normal. 8 - Mid anteroseptal: Normal. 14 - Apical septal: Normal. 3 - Basal inferoseptal: Normal. 9 - Mid inferoseptal: Normal. 15 - Apical inferior: Normal. 4 - Basal inferior: Normal. 10-Mid inferior: Normal. 16 - Apical lateral: Normal. 5 - Basal inferolateral: Normal. 11-Mid inferolateral: Normal. 6 - Basal anterolateral: Normal. 12-Mid anterolateral: Normal. RIGHT VENTRICLE: Right ventricle is normal in size and systolic function LEFT ATRIUM: Left atrium is normal size. Continued Report - Page 3 of 3 Patient: KATHRYN NORMAN JR Phone#: : 1995 Age: 29 Gender: M Pt. Type: Out Account: [id number] Location: [facility] Ordering: TRANG VILLALPANDO Exam Date: 10/22/2024/13:12 Family Phys: MARCO ANTONIO MONREAL Charge Code: [id number] Physician: Ventura Order #: [id number] Dose#: RIGHT ATRIUM: Right atrium is normal size ATRIAL SEPTUM: There is no large interatrial shunt seen. PFO was not assessed MITRAL VALVE: Mitral valve appears normal structure. There is trivial regurgitation and no stenosis seen. TRICUSPID VALVE: Tricuspid valve is normal structure. There is trivial regurgitation and no stenosis seen AORTIC VALVE: Aortic valve is trileaflet. There is no regurgitation or stenosis seen. PULMONIC VALVE: Pulmonic valve is inadequately visualized. Doppler shows no significant regurgitation or stenosis AORTIC ROOT: Aortic root is normal in size AORTIC ARCH: Aortic arch normal in size. DESC THORACIC AORTA: Descending aorta is normal in size. Doppler shows normal flow IVC/SVC: IVC is normal size more than 50% collapse of inspiration. Estimated atrial pressure is 3 mm Hg PULMONARY VEINS: Normal pulmonic vein flow. PERICARDIUM: There is no pericardial effusion seen CONCLUSION: 1. Left ventricle is normal in size and thickness. Systolic ejection fraction is 55-60% with normal wall motion. 2. There are no significant valvular dysfunction seen 3. Right ventricle is normal in size and systolic function. 4. TR velocity is inadequate to calculate for right ventricular systolic pressure. Dictated by: TRANG VILLALPANDO MD on 10/22/2024 at 18:28 Approved by: TRANG VILLALPANDO MD on 10/22/2024 at 18:48 Normal [facility] CHEST 2 VIEWSon 08-18-2024 CHEST 2 VIEWS [place] [address] Patient: KATHRYN NORMAN JR Phone#: : 1995 Age: 29 Gender: M Pt. Type: Out Account: [id number] Location: 052 Ordering: MARCO ANTONIO MONREAL Exam Date: 08/18/2024/11:33 Family Phys: Charge Code: [id number] Physician: Ventura Order #: [id number] Dose#: PROCEDURE: X-RAY CHEST 2 VIEWS COMPARISON: [facility], XR, CHEST 1 VIEW, 05/30/2024, 21:29. INDICATIONS: Cough. FINDINGS: LUNGS: Normal. No significant pulmonary parenchymal abnormalities. VASCULATURE: Normal. Unremarkable pulmonary vasculature. CARDIAC: Normal. No cardiac silhouette abnormality or cardiomegaly. MEDIASTINUM: Normal. No visible mass or adenopathy. PLEURA: Normal. No effusion or pleural thickening. BONES: Normal. No fracture or visible bony lesion. OTHER: Negative. CONCLUSION: No acute disease. No significant change has occurred. Dictated by: Mandy Santana MD on 08/18/2024 at 12:05 Approved by: Mandy Santana MD on 08/18/2024 at 12:11 Normal [facility] SUSHIL SCREEN, IFA, W/REFL TITE R AND PATTERNon 07-29-2024 SUSHIL SCREEN, IFA Negative Normal NEGATIVE [facility] Comment on above: Result Comment: SUSHIL IFA is a first line screen for detecting the presence of up to approximately 150 autoantibodies in various autoimmune diseases. A negative SUSHIL IFA result suggests an SUSHIL-associated autoimmune disease is not present at this time, but is not definitive. If there is high clinical suspicion for Sjogren's syndrome, testing for anti-SS-A/Ro antibody should be considered. Anti-Dorothy-1 antibody should be considered for clinically suspected inflammatory myopathies. AC-0: Negative International Consensus on SUSHIL Patterns (https://doi.org/10.1515/pnmu-8940-5437) For additional information, please refer to http://education.[employer].ShuttleCloud/faq/WZO377 (This link is being provided for informational/ educational purposes only.) Performed By: #### 4 [id number], [id number], 249, 809 #### [facility] [place] [id number] [facility], [address] [place] [address] Director Agency & Strategic Partnerships: Jonathon Malik MD C-REACTIVE PROTEINon 024 CRP [Mass/Vol] mg/L Normal <8.0 [facility] Comment on above: Performed By: #### 3 95 #### [facility] [address], [address] [place] [address] Director Agency & Strategic Partnerships: Jonathon Malik MD RHEUMATOID FACTORon 07-29-20 RHEUMATOID FACTOR <10 Normal <14 [facility] Comment on above: Performed By: #### 3 95 #### [facility] [address], [address] [place] [address] Director Agency & Strategic Partnerships: Jonathon Malik MD SED RATE BY MODIFIED WESTERG RENon 07-29-2024 SED RATE BY MODIFIED WESTERGREN 2 mm/h Normal < OR = 15 [facility] Comment on above: Performed By: #### 4 [id number], [id number], 249, 809 #### [facility] [address], [address] [place] [address] Director Agency & Strategic Partnerships: Jonathon Malik MD Laboratory - Chemistry and C hemistry - challengeon 07-28-2024 CRP [Mass/Vol] mg/L Normal [facility] No Panel Informationon 07-28 SUSHIL SCREEN, IFA Negative Normal [facility] RHEUMATOID FACTOR <10 Normal [facility], [facility] SED RATE BY MODIFIED WESTERGREN 2 mm/h Normal [facility] PULMONARY FUNCTION STUDYon 1 09-02-2023 PULMONARY FUNCTION STUDY [facility] PULMONARY FUNCTION TEST NAME ACCOUNT SEX AGE VISIT DATE ROOM MEDICAL REC. # NUMBER TYPE JR. NORMAN EMMET [id number] M 28 06/06/2024 2 RINKU [id number] DATE OF : 1995 DICTATING PHYSICIAN: Iggy Hardy The FEV1 is 4.72 liters or 98% of predicted. The FEV1 ratio is 78%. Total lung capacity is 7.23 liters or 96% of predicted. The RV to TLC ratio and diffusing capacity are normal. IMPRESSION: This is a normal study. No evidence of obstruction or restriction or airway reactivity. Dictated By: Iggy Hardy MD 06/10/24 16:49 JOB #: [id number] Transcribed By: emily 06/10/24 17:05 Electronically signed by: Ryan Hardy M.D. 07/03/24 10:27 JR. NORMAN EMMET Page 1 of 1 RINKU [facility] ED FACILITY CODING SUMMARYon 05-31-2024 ED FACILITY CODING SUMMARY Facility Coding Facility Coding Summary [place] [address] [place] [address] [id number] 05/30/2024 Patient: KATHRYN NORMAN JR Sex: Male : 1995 Age: 28y Providers: Carrie Gomez M.D. DIAGNOSTIC WORKUP Chief Complaint DYSPNEA. -- Carrie Gomez M.D. Principal Diagnosis Acute dyspnea. -- Carrie Gomez M.D. Anxiety reaction. -- Carrie Gomez M.D. ICD-10 Codes F41.1: Generalized anxiety disorder R06.09: Other forms of dyspnea PROCEDURES Procedures from Providers: EKG (CPT: 61061) -- Carrie Gomez M.D. Procedures from Nurses/Facility: Inhalation Treatment (CPT: 98334) SUPPLIES 1 of 2 Facility Coding [facility] 38486-03 This is a partial abstract of information documented in the full record. Manager Of Purchasing must use independent judgment in selecting codes. CPT copyright 2022 [employer]. All Rights Reserved. 2 of 2 [facility] ED MED ADMINISTRATION DETAIL on 05-31-2024 ED MED ADMINISTRATION DETAIL Power Plant Technician Medication Administration Record [address] [place] [id number] 05/30/2024 Patient: KATHRYN NORMAN JR Sex: Male : 1995 Age: 28y MEASUREMENTS: Wt: 79.4 kg ALLERGIES: No known drug allergies Medication Ordered Medication Administration Date/Time DuoNeb Neb Tx 3 22:14 05/30 DuoNeb Neb Tx 3 mL given. Given by the respiratory Given mL (NOW x1) therapist. Allergies verified and confirmed 5 rights. Information 22:14 05/30/2024 reviewed with patient. Verbalizes understanding. - 22:14 Gurmeet Gurmeet Huertasman Zonia Scanned LORazepam 22:34 05/30 LORazepam (Ativan) PO 2 mg given. Allergies verified Given (Ativan) PO 2 mg and confirmed 5 rights. Information reviewed with patient. Vitals: 22:34 05/30/2024 (NOW x1) 22:21 05/30/2024 BP: 123/86 MAP: 93 mmHg. HR: 92 bpm. - Mundo Quiles, 22:35 Mundo Quiles E.M.T.-P. E.M.T.-P. Scanned 1 of 1 Normal [facility] ED NURSES CLINICAL NOTEon ED NURSES CLINICAL NOTE Nurse Narrative Nurse Clinical Narrative [address] [place] [address] [phone] 05/30/2024 Patient: KATHRYN NORMAN JR Sex: Male : 1995 Age: 28y Disposition: Discharge to Home Disposition Decision Time: 23:41 05/30/2024 Departure Time: 23:48 05/30/2024 TRIAGE Triage time: 20:36 05/30/2024. -- 20:46 05/30/24 EDT Per Florez R.N. 20:45 05/30/24. BP: 161/107 MAP: 125. HR: 106. RR: 15. O2 saturation: 100% Temperature: 98.5 F. Pain level now 4/10. -- 20:45 05/30/24 EDT Per Florez R.N. Arrived by private vehicle. Historian: patient. ( Palpitations). Acuity: LEVEL 3. Chief Complaint: CHEST PAIN. 20:46 05/30/24. This started just prior to arrival. The patient has had difficulty breathing. SEPSIS SCREEN: NEGATIVE. SIRS criteria negative: heart rate greater than 90. No possible sources of infection. -- 20:46 05/30/24 EDT Per Florez R.N. Measurements: 20:45 05/30/24 Wt: 79.4 kg -- 20:45 05/30/24 EDT Per Florez R.N. Medications: no known home medications -- 20:46 05/30/24 EDT Per Florez R.N. 1 of 4 Nurse Narrative Allergies: no known drug allergies -- 20:41 05/30/24 KENNETHT Per Florez R.N. Problems: Anxiety disorder -- 20:41 05/30/24 KENNETHT Per Florez R.N. ADDITIONAL SURGERIES: Cholecystectomy -- 20:41 05/30/24 YESSY Florez R.N. Shoulder Surgery -- 20:42 05/30/24 KENNETHT Per Florez R.N. Appendectomy -- 20:42 05/30/24 KENNETHT Per Florez R.N. History 20:46 05/30/24. SOCIAL HX: Never smoker. Alcohol use; consumes beer occasionally. Drug use: marijuana. The patient has not traveled outside the [place] Infectious disease exposure: No infectious disease exposure. ABUSE ASSESSMENT: The patient answered yes to the question(s) Do you feel safe in your home? and no to the question(s) Are you afraid to go home?. SELF HARM ASSESSMENT: Self harm assessment was performed. The patient answered no to the question(s) Have you recently felt down, depressed, or hopeless? and Do you have thoughts of harming or killing yourself?. FALL RISK ASSESSMENT: Fall risk assessment completed. No risk factors identified. -- 20:46 05/30/24 EDT Per Florez R.N. Interventions 20:46 05/30/24. Advanced care plan discussed with patient. Patient does not have advanced directive. -- 20:46 05/30/24 EDT Per Florez R.N. PHYSICAL ASSESSMENT 2 of 4 Nurse Narrative 21:40 05/30/24. Ambulatory to room. Patient gowned. GENERAL / NEURO / PSYCH: Alert. Oriented X 4. Appears in no acute distress. HEENT: Mucous membranes are pink. RESPIRATORY: Moderate respiratory distress. Respirations not labored. Chest nontender. No chest wall tenderness. Breath sounds within normal limits. CVS: Normal sinus rhythm noted. Heart sounds within normal limits. Pulses within normal limits. Capillary refill less than 2 seconds. EXTREMITIES: No lower extremity edema. SKIN: Skin is warm and dry. Normal skin turgor. Skin is non-tender. -- 21:40 05/30/24 EDT Casimiro Rodriguez R.N. NURSING PROGRESS NOTES 20:47 05/30/24. Site #1 started via IV in the right antecubital space with an 18g angiocath with aseptic technique and good blood return; 1 attempt. Blood drawn: rainbow set tube(s). Labeled in the presence of the patient and sent to the lab. Saline lock flushed with 5 mL saline. -- 20:53 05/30/24 EDT Darcie ScottP. 21:45 05/30/24. Cardiac rhythm: normal sinus rhythm. lunchroom monitor, NIBP monitor and pulse oximeter placed on patient; youth nutritional monitor- Lead II. Patient gowned. Head of bed elevated. Reassurance given to the patient. Overall patient status is improved. ( my chest doesn't hurt like it did earlier.). RESPIRATORY: No respiratory distress. Breath sounds normal. CVS: Normal sinus rhythm noted. SKIN: Skin is warm. Skin color within normal limits. Patient identifiers checked. Call light placed in reach of patient. Side rails up x 1. Bed placed in lowest position. Brakes of bed on. ( pt states sob started suddenly after bringing his dogs in, endorses episodes of sob worsening over past 1 1/2 months, states he woke up this past weekend with acute sob and cold sweats..). -- 21:45 05/30/24 EDT Casimiro Rodriguez R.N. 22:34 05/30/24. LORazepam (Ativan) PO 2 mg given. Allergies verified and confirmed 5 rights. Information reviewed with patient. Vitals: 22:21 05/30/2024 BP: 123/86 MAP: 93 mmHg. HR: 92 bpm. -- 22:35 05/30/24 EDT Darcie ScottP. Respiratory Therapy Flowsheet 22:14 05/30/24. DuoNeb Neb Tx 3 mL given. Given by the respiratory therapist. Allergies verified and confirmed 5 rights. Information reviewed with patient. Verbalizes understanding. -- 22:14 05/30/24 EDT Gurmeet Brar 22:15 05/30/24. Respiratory treatment performed. Pre assessment. O2 saturation- 97% (FIO2- FIO2 - room air). Inte (more content not included)... Normal [facility] ED ORDER SHEET (CPOE ONLY)on 05-31-2024 ED ORDER SHEET (CPOE ONLY) Order Sheet Order Sheet [address] [place] [address] [phone] 05/30/2024 Patient: KATHRYN NORMAN JR Sex: Male : 1995 Age: 28y MEASUREMENTS: Wt: 79.4 kg ALLERGIES: No known drug allergies MEDICATION/IV/DRIP/FL UID ORDERS Order Description Priority Entered Acknowledged Completed DuoNeb Neb Tx3 mL (NOW x1) 22:03 05/30/2024 22:14 Carrie Gomez M.D. 05/30/2024 Gurmeet Brar LORazepam (Ativan) PO2 mg 22:31 05/30/2024 22:32 22:35 (NOW x1) Carrie Gomez M.D. 05/30/2024 05/30/2024 Mundo Scott E.M.T.-PMartha CollierM.T.-P. LAB ORDERS Order Description Priority Entered Acknowledged Collected Completed CBC w Diff Stat Stat 20:53 05/30/2024 21:00 05/30/2024 21:01 05/30/2024 Mundo Garcia Bryan Parker, M.D. E.M.TMartha-PMartha CollierM.T.-P. BMP Stat Stat 20:53 05/30/2024 21:00 05/30/2024 21:01 05/30/2024 Mundo Garcia Bryan Parker, M.D. E.M.TMartha-P. E.M.T.-P. 1 of 2 Order Sheet Troponin-I (Sched: q3h Stat 20:53 05/30/2024 21:00 05/30/2024 21:01 05/30/2024 X2); Stat 1 of 2 Mundo Garcia Bryan Parker, M.D. E.M.TMartha-PMartha CollierMMarthaT.-P. Troponin-I (Sched: q3h Stat 20:53 05/30/2024 21:00 05/30/2024 X2); Stat 2 of 2 Mundo Garcia M.D. E.M.T.-P. D-Dimer Stat Stat 20:53 05/30/2024 21:00 05/30/2024 21:01 05/30/2024 Mundo Garcia Bryan Parker, M.D. E.M.T.-P. E.M.T.-PMartha DIAGNOSTIC STUDY ORDERS Order Description Priority Entered Acknowledged Completed Chest 1V Stat Stat 20:53 05/30/2024 21:00 Carrie Gomez M.D. 05/30/2024 Mundo Quiles E.M.T.-P. Reason for Study: Shortness of Breath STAFF ORDERS Order Description Priority Entered Acknowledged Collected Completed EKG 20:53 05/30/2024 21:00 05/30/2024 21:01 05/30/2024 Mundo Garcia Bryan Parker, M.D. E.M.T.-Bubba Whitman [Electronically signed by Carrie Gomez M.D. (05/30/2024 22:59 EDT)] 2 of 2 [facility] ED PHYS CODING ABST SUMMARYo n 05-31-2024 ED PHYS CODING ABST SUMMARY Coding Summary Coding Summary [address] [address] [id number] 05/30/2024 Patient: KATHRYN NORMAN JR Sex: Male : 1995 Age: 28y ICD-10 Codes R06.09: Other forms of dyspnea F41.1: Generalized anxiety disorder CPT Codes EKG (CPT: 29979) This is a partial abstract of information documented in the full record. Manager Of Purchasing must use independent judgment in selecting codes. CPT copyright 2022 [employer]. All Rights Reserved. 1 of 1 [facility] ED PHYSICIAN CLINICAL REPORT on 05-31-2024 ED PHYSICIAN CLINICAL REPORT Narrative Physician Clinical Narrative [address] [address] [id number] 05/30/2024 Patient: KATHRYN NORMAN JR Sex: Male : 1995 Age: 28y Measurements Wt: 79.4 kg Initial Vital Sign Measured Time BP MAP HR RR O2Sat ETCO2 Temp Pain GCS RTS 20:45 05/30/2024 161/107 125 106 15 100% 98.5 F 4 Time Seen: 20:37 05/30/2024. HISTORY OF PRESENT ILLNESS Chief Complaint: DYSPNEA. This started Several weeks of symptoms, progressively worsening. Worsened today. Also c/o palpitations, subjective anxiety. Tried 1/2 of an anxiety medication and his albuterol inhaler without improvement. Has appt next week for PFTs. No fever, chills, sputum production, calf tenderness, edema. No recent travel, surgery, hormonal therapy. The patient has had palpitations. Similar symptoms previously. Seen in the office. ( Undergoing workup for reactive airway disease). REVIEW OF SYSTEMS CVS: The patient has had palpitations. RESPIRATORY: The patient has had difficulty breathing. All other systems reviewed and are negative. PAST HISTORY See nurses notes. Anxiety disorder 1 of 5 Narrative Surgeries: Appendectomy Cholecystectomy Shoulder Surgery Medications: no known home medications Allergies: no known drug allergies SOCIAL HISTORY Never smoker. ADDITIONAL NOTES The nursing notes have been reviewed. PHYSICAL EXAM Vital Signs: Have been reviewed. Appearance: Alert. No acute distress. Anxious. Eyes: Pupils equal, round and reactive to light. Eyes normal inspection. ENT: Ears normal. Nose normal. Neck: Normal inspection. No jugular venous distention. CVS: Tachycardia. Heart sounds normal. Pulses normal. Respiratory: No respiratory distress. Breath sounds normal. Abdomen: Soft and nontender. Skin: Skin warm and dry. Normal skin color. Extremities: Extremities exhibit normal ROM. No lower extremity edema. Neuro: Oriented X 3. No motor deficit. No sensory deficit. LABS, X-RAYS, AND EKG Diagnostic Tests: Diagnostic tests have been ordered, with results reviewed and considered in the medical decision making process. 2 of 5 Narrative 12-LEAD EKG: No acute process. Normal EKG. Normal sinus rhythm. Rate: 98. Normal P waves. Normal axis. Normal ST and T waves, QT and QTc. The study has been interpreted contemporaneously by me. CBC: CBC is normal. Chemistries: Normal except as follows. Mild hypokalemia. Coagulation Studies: D-dimer negative. Laboratory Tests: BMP with eGFR Final TONE: 05/30/2024 20:47:00 EDT MsgRcvd: 05/30/2024 21:26 EDT Lab Test Result Reference Status Received Comments BASIC 05/30/2024 21:26 BMP with eGFR Final METABOLIC EDT PANEL CBC + DIFF Final TONE: 05/30/2024 20:47:00 EDT MsgRcvd: 05/30/2024 21:20 EDT Lab Test Result Reference Status Received Comments 05/30/2024 21:20 CBC-COMPLETE CBC + DIFF Final EDT BLOOD COUNT D-DIMER, QUANTITATIVE Final TONE: 05/30/2024 20:47:00 EDT MsgRcvd: 05/30/2024 21:38 EDT Lab Test Result Reference Status Received Comments D-DIMER, 05/30/2024 21:38 QUANT Final QUANTITATIVE EDT D-DIMER TROPONIN Final TONE: 05/30/2024 20:47:00 EDT MsgRcvd: 05/30/2024 21:26 EDT 3 of 5 Narrative Lab Test Result Reference Status Received Comments 05/30/2024 21:26 HS TROPONIN 4.4 pg/mL 0.0 - 76.2 Final EDT PROGRESS AND PROCEDURES Course of Care: Patient is stable. Symptoms much better. Physical exam findings are unchanged. MEDICAL DECISION MAKING: Ordered tests include a chest x-rays, EKG and complete blood count, chemistries, d-dimer and troponin. The patient has been stable. Bronchodilators have been given. The exam has not changed. The patient is to be discharged. (28-year-old male currently undergoing workup for reactive airway disease presenting for shortness of breath, palpitations, anxiety. Vital signs notable only for mild tachycardia on arrival. Lungs were clear to auscultation bilaterally and patient had an overall normal physical exam.). Disposition: Discharged in good condition. Discharge decision based on the following: patient's condition is stable; patient's exam is stable; no abnormal test results; stable condition on multiple repeat evaluations; social support is adequate; transportation is available; follow-up is arranged; clinical impression is consistent with outpatient treatment. CLINICAL IMPRESSION Acute dyspnea. Anxiety reaction. DISCHARGE INSTRUCTIONS No restrictions to activity. Return to work tomorrow. Warnings: GENERAL WARNINGS: Return or contact your physician immediately if your condition worsens or changes unexpectedly, if not improving as expected, or if other problems arise. SPECIFICALLY, return if you develop chest pain; or if there is worsening o (more content not included)... Normal [facility] ED SUPER BILLon 05-31-2024 ED SUPER BILL [address] [address] [id number] 05/30/2024 Patient: KATHRYN NORMAN JR Sex: Male : 1995 Age: 28y Item Professional Category Description Facility Code Code Quantity Fee Total Nurse/E/M EMERGENCY 182443 1 $0.00 $0.00 DEPARTMENT VISIT HIGH/URGENT SEVERITY (17219-14) Nurse/Procedures Respiratory 404021 1 $0.00 $0.00 therapy - inhalation (52893) Grand Total $0.00 Providers Carrie Gomez M.D. Chief Complaint DYSPNEA. Principal Diagnosis 1 of 2 [facility] Acute dyspnea. Anxiety reaction. ICD-10 Codes R06.09: Other forms of dyspnea F41.1: Generalized anxiety disorder 2 of 2 Normal [facility] ED VISIT SUMMARYon ED VISIT SUMMARY Visit Overview Visit Overview [address] [address] [id number] 05/30/2024 Patient: KATHRYN NORMAN JR Sex: Male : 1995 Age: 28y 05/31/2024 12:24 AM EDT ED Arrival:20:36 05/30/2024 EDT Status: Recent Travel:no Language:eng Adv Directive:No Isolation Status: Ethnicity:N Fall Risk:no risk Infectious Disease Exposure:no Measurements:175.0 lb / 79.4 kg Self-Harm Status:risk Sepsis Screen:negative Chief Complaint:CHEST PAIN and (Palpitations) ALLERGIES No Known Drug Allergies HOME MEDICATIONS None PAST MEDICAL HISTORY / PROBLEMS Anxiety disorder See nurses notes PAST SURGICAL HISTORY 1 of 3 Visit Overview Appendectomy Cholecystectomy Shoulder Surgery SOCIAL HISTORY Smoking status: No Alcohol use: Yes Drug use: Yes ED COURSE MEDICATIONS GIVEN IN EMERGENCY DEPARTMENT 22:14 05/30/24 DuoNeb Neb Tx 3 mL 22:34 05/30/24 LORazepam (Ativan) PO 2 mg IV SITE INFORMATION INTAKE OUTPUT REASSESMENT (most recent) 22:25 05/30/24. Respiratory treatment performed. Post assessment. O2 saturation- 97% (FIO2- FIO2 - room air). Interpretation: normal. Heart rate: (88 regular). Respiratory rate: (20 regular). No respiratory distress. Respirations not labored. Breath sounds within normal limits. VITAL SIGNS First Vitals Last Vitals Temp 20:45 05/30/24 98.5 F Temp 23:48 05/30/24 BP 20:45 05/30/24 161/107 BP 23:48 05/30/24 HR 20:45 05/30/24 106 HR 23:48 05/30/24 RR 20:45 05/30/24 15 RR 23:48 05/30/24 16 O2 Sat 20:45 05/30/24 100% O2 Sat 23:48 05/30/24 Pain 20:45 05/30/24 4 Pain 23:48 05/30/24 ETCO2 20:45 05/30/24 ETCO2 23:48 05/30/24 GCS 20:45 05/30/24 GCS 23:48 05/30/24 RTS 20:45 05/30/24 RTS 23:48 05/30/24 2 of 3 Visit Overview PROCEDURES NURSING INTERVENTIONS Respiratory therapy LABS / STUDIES LABS / STUDIES ORDERED BMP CBC w Diff Chest 1V D-Dimer Troponin-I Troponin-I CLINICAL IMPRESSION ACUTE DYSPNEA ANXIETY REACTION 3 of 3 Normal [facility] BMP with eGFRon 05-30-2024 AGE 28 years Normal [facility] Comment on above: Performed By: #### 2 10718 ####[facility],[address] [place] [address] Anion gap [Moles/Vol] 17 mmol/L Normal 10 - [facility] Comment on above: Performed By: #### 2 11553 ####[facility],[address] [place] [address] BMP with eGFR Normal [facility] Comment on above: Result Comment: BASI C METABOLIC PANEL Performed By: #### 2 03693 ####[facility],[address] [place] [address] 26086 Calcium [Mass/Vol] 9.5 mg/dL Normal 8.5 - 10.1 [facility] Comment on above: Performed By: #### 2 35816 ####[facility],[address] [place] [address]959 Chloride [Moles/Vol] 103 mmol/L Normal 98 - 107 [facility] Comment on above: Performed By: #### 2 02979 ####[facility],[address] [place] [address] 46597 CO2 [Moles/Vol] 24.9 mmol/L Normal 21.0 - 32.0 [facility] Comment on above: Performed By: #### 2 51294 ####[facility],[address] [place] [address]269 Creatinine [Mass/Vol] 1.22 mg/dL Normal 0.70 - 1.30 [facility] Comment on above: Performed By: #### 2 10442 ####[facility],[address] [place] [address]9566 GFR/1.73 sq M.predicted among non-blacks MDRD (S/P/Bld) [Vol rate/Area] mL/min/{1.73_m2} Normal 60 - 999 [facility] Comment on above: Performed By: #### 2 22523 ####[facility],[address] [place], [place] [id number] Result Comment: ACCO RDING TO THE NATIONAL KIDNEY DISEASE EDUCATION PROGRAM(NKDE), A NORMAL eGFR IS A VALUE GREATER THAN OR EQUAL TO 60 ML/MIN/1.73 SQ METERS. CHRONIC KIDNEY DISEASE: <60mL/MIN/1.73 SQ METERS KIDNEY FAILURE: <15mL/MIN/1.73 SQ METERS THIS TEST SHOULD ONLY BE USED FOR PATIENTS 18 YEARS OF AGE AND OLDER. Glucose [Mass/Vol] 126 mg/dL High 74 - 106 [facility] Comment on above: Performed By: #### 2 59547 ####[facility],[address] [place] [address]43 Potassium [Moles/Vol] 3.4 mmol/L Low 3.5 - 5.1 [facility] Comment on above: Performed By: #### 2 35774 ####[facility],[address] [place] [address]644 Sodium [Moles/Vol] 141 mmol/L Normal 136 - 145 [facility] Comment on above: Performed By: #### 2 11782 ####[facility],[address] [place] [address]394 Urea nitrogen [Mass/Vol] 9 mg/dL Normal 7 - 18 [facility] Comment on above: Performed By: #### 2 39870 ####[facility],[address] [place] [address]191 CBC + DIFFon 05-30-2024 Baso # 0.03 x10EE3/UL Normal 0.00 - 0.10 [facility] Comment on above: Performed By: #### 2 63098 ####[facility],[address] [place] [address]265 Basophils/100 WBC (Bld) 0.4 % Normal 0.0 - 2.0 [facility] Comment on above: Performed By: #### 2 35925 ####[facility],[address] [place] [address] 97057 CBC + DIFF Normal [facility] Comment on above: Result Comment: CBC- COMPLETE BLOOD COUNT Performed By: #### 2 07624 ####[facility],[address] [place] [address] 89516 EO # 0.09 x10EE3/UL Normal 0.00 - 0.50 [facility] Comment on above: Performed By: #### 2 42089 ####[facility],[address] [place] [address] 36786 Eosinophils/100 WBC (Bld) 1.1 % Normal 0.0 - 7.0 [facility] Comment on above: Performed By: #### 2 67513 ####[facility],[address] [place] [address] Erythrocyte distribution width (RBC) [Ratio] 13.2 % Normal 12.0 - 15.6 [facility] Comment on above: Performed By: #### 2 13525 ####[facility],[address] [place] [address] Hematocrit (Bld) [Volume fraction] 51.2 % Normal 40.0 - 52.0 [facility] Comment on above: Performed By: #### 2 30081 ####[place] [address] Hemoglobin (Bld) [Mass/Vol] 16.9 g/dL Normal 13.0 - 17.5 [facility] Comment on above: Performed By: #### 2 84767 ####[place] [address] Lymph # 1.73 x10EE3/UL Normal 0.80 - 2.80 [facility] Comment on above: Performed By: #### 2 92999 ####[place] [address] Lymphocytes/100 WBC (Bld) 19.7 % Low 20.0 - 45.0 [facility] Comment on above: Performed By: #### 2 09882 ####[place] [id number] MANUAL DIFF N/A Normal [facility] Comment on above: Performed By: #### 2 84566 ####[place] [address] MCH (RBC) [Entitic mass] 29 pg Normal 27 - 33 [facility] Comment on above: Performed By: #### 2 06416 ####[place] [address] MCHC 33 X10 3 Normal 32 - 36 [facility] Comment on above: Performed By: #### 2 30211 ####[facility],[address] [place] [address] 44563 MCV (RBC) [Entitic vol] 87 fL Normal 81 - 98 [facility] Comment on above: Performed By: #### 2 67346 ####[facility],[address] [place] [address] 10259 Starke # 0.92 x10EE3/UL Normal 0.20 - 1.00 [facility] Comment on above: Performed By: #### 2 19361 ####[facility],[address] [place] [address] 18864 MONOS % 10.5 % High 0.0 - 10.0 [facility] Comment on above: Performed By: #### 2 99773 ####[facility],[address] [place] [address] 66964 Morphology Bob (Bld) [Interp] N/A Normal [facility] Comment on above: Performed By: #### 2 38607 ####[facility],[address] [place] [address]1941 Neut # 6.04 x10EE3/UL Normal 1.50 - 7.10 [facility] Comment on above: Performed By: #### 2 71838 ####[facility],[address] [place] [address] 46607 Neutrophils/100 WBC (Bld) 68.5 % Normal 46.0 - 76.0 [facility] Comment on above: Performed By: #### 2 94059 ####[facility],[address] [place] [address] 83404 PLATELET 192 x10EE3/UL Normal 150 - 450 [facility] Comment on above: Performed By: #### 2 31849 ####[facility],[address] [place] [address] 21853 Platelet mean volume (Bld) [Entitic vol] 8.7 fL Normal 6.4 - 10.5 [facility] Comment on above: Result Comment: AUTO MATED DIFFERENTIAL Performed By: #### 2 75946 ####[facility],[address] [place] [address] 40623 RBC 5.88 x 10EE6/UL Normal 4.50 - 6.00 [facility] Comment on above: Performed By: #### 2 09450 ####[facility],[address] [place] [address] 05922 WBC 8.8 x 10EE3/UL Normal 4.5 - 10.8 [facility] Comment on above: Performed By: #### 2 65881 ####[facility],[address] [place] [address] 87154 CHEST 1 VIEWon 05-30-2024 CHEST 1 VIEW [place] [address] Patient: KATHRYN NORMAN JR Phone#: : 1995 Age: 28 Gender: M Pt. Type: ER Account: [id number] Location: [facility] Ordering: Exam Date: 05/30/2024/21:29 Family Phys: Charge Code: [id number] Physician: [place] Order #: [id number] Dose#: PROCEDURE: X-RAY CHEST 1 VIEW COMPARISON: [facility], XR, CHEST 1 VIEW, 09/16/2023, 12:21. INDICATIONS: Shortness of breath. FINDINGS: LUNGS: Normal. No significant pulmonary parenchymal abnormalities. VASCULATURE: Normal. Unremarkable pulmonary vasculature. CARDIAC: Normal. No cardiac silhouette abnormality or cardiomegaly. MEDIASTINUM: Normal. No visible mass or adenopathy. PLEURA: Normal. No effusion or pleural thickening. BONES: Orthopedic clip is present superimposed on the right humeral head. OTHER: Negative. CONCLUSION: No acute disease. Dictated by: Gemini Najera MD on 05/31/2024 at 4:07 Approved by: Gemini Najera MD on 05/31/2024 at 4:08 Normal [facility] D-DIMER, QUANTITATIVEon 10-1 D-DIMER QUANT <200 Normal 0 - 230 [facility] Comment on above: Performed By: #### 2 12599 #### [facility],[address] [place] [address] 96743 D-DIMER, QUANTITATIVE Normal [facility] Comment on above: Result Comment: MACHELLE T D-DIMER Performed By: #### 2 26369 #### [facility],[address] [place] [address] 64032 TROPONINon 05-30-2024 HS TROPONIN 4.4 pg/mL Normal 0.0 - 76.2 [facility] Comment on above: Performed By: #### 2 27837 #### [facility],[address] [place] [address] 59103 MR LUMBAR SP WO CONTRASTon 0 02-18-2024 MR LUMBAR SP WO CONTRAST [place] [address] Patient: KATHRYN NORMAN JR Phone#: : 1995 Age: 28 Gender: M Pt. Type: Out Account: [id number] Location: [facility] Ordering: MARCO ANTONIO MONREAL Exam Date: 02/18/2024/14:05 Family Phys: Charge Code: [id number] Physician: [place] Order #: [id number] Dose#: PROCEDURE: MRI LUMBAR SPINE WITHOUT CONTRAST COMPARISON: [facility], , LUMBAR SPINE W/O CONT, 10/16/2019, 16:50. INDICATIONS: Low back pain TECHNIQUE: A variety of imaging planes and parameters were utilized for visualization of suspected pathology. FINDINGS: PARASPINAL AREA: Normal with no visible mass. BONES: No fracture, pars defect, or osseous lesion. CORD/CAUDA EQUINA: Normal caliber, contour, and signal intensity. LUMBAR DISC LEVELS: L1-L2: No significant disc/facet abnormality, spinal stenosis, or foraminal stenosis. L2-L3: No significant disc/facet abnormality, spinal stenosis, or foraminal stenosis. L3-L4: No significant disc/facet abnormality, spinal stenosis, or foraminal stenosis. L4-L5: No significant disc/facet abnormality, spinal stenosis, or foraminal stenosis. L5-S1: No significant disc/facet abnormality, spinal stenosis, or foraminal stenosis. CONCLUSION: 1. There is no evidence of focal disc herniation. Dictated by: Gemini Najera MD on 02/18/2024 at 19:45 Approved by: Gemini Najera MD on 02/18/2024 at 19:50 Normal [facility] LIPID PANEL, STANDARDon - Cholesterol [Mass/Vol] 167 mg/dL Normal <200 [facility] Comment on above: Performed By: #### 7 600 #### [facility] [place] [address] [employer]: Jonathon Malik MD Cholesterol in HDL [Mass/Vol] 31 mg/dL Low > OR = 40 [facility] Comment on above: Performed By: #### 7 600 #### [facility] [place] [address] [employer]: Jonathon Malik MD Cholesterol in LDL [Mass/Vol] 113 mg/dL High [facility] Comment on above: Result Comment: Refe rence range: <100 Desirable range <100 mg/dL for primary prevention; <70 mg/dL for patients with CHD or diabetic patients with > or = 2 CHD risk factors. LDL-C is now calculated using the Rasheed-Napoleon calculation, which is a validated novel method providing better accuracy than the Friedewald equation in the estimation of LDL-C. Rasheed COKER et al. BRISSA. 2013;310(19): 2469-4693 (http://education.[employer].ShuttleCloud/faq/IOJ682) Performed By: #### 7 600 #### [facility] [place] [address] Director [employer]: Jonathon Malik MD Cholesterol.total/Cho lesterol in HDL [Mass ratio] 5.4 {ratio} High <5.0 [facility] Comment on above: Performed By: #### 7 600 #### [facility] of [place] [address] [employer]: Jonathon Malik MD NON HDL CHOLESTEROL 136 mg/dL (calc) High <130 [facility] Comment on above: Result Comment: For patients with diabetes plus 1 major ASCVD risk factor, treating to a non-HDL-C goal of <100 mg/dL (LDL-C of <70 mg/dL) is considered a therapeutic option. Performed By: #### 7 600 #### [facility] [place] [address] [employer]: Jonathon Malik MD Triglyceride [Mass/Vol] 121 mg/dL Normal <150 [facility] Comment on above: Performed By: #### 7 600 #### [facility] [place] [address] [employer]: Jonathon Malik MD AMYLASEon 02-04-2024 Amylase [Catalytic activity/Vol] 59 U/L Normal 21-101 [facility] Comment on above: Performed By: #### 1 0231, 606, 243, 6399, 809 #### [facility] [place] [address] [employer]: Jonathon Malik MD C-REACTIVE PROTEINon 024 CRP [Mass/Vol] mg/L Normal <8.0 [facility] Comment on above: Performed By: #### 1 0231, 606, 243, 6399, 809 #### [facility] [place] [address] [employer]: Jonathon Malik MD CBC (INCLUDES DIFF/PLT)on Basophils (Bld) [#/Vol] 0.037 10*3/uL Normal 0-200 [facility] Comment on above: Performed By: #### 1 0231, 606, 243, 6399, 809 #### [facility] [place] [address] [employer]: Jonathon Malik MD Basophils/100 WBC (Bld) 0.5 % Normal [facility] Comment on above: Performed By: #### 1 0231, 606, 243, 6399, 809 #### [facility] of [place] [address] [employer]: Jonathon Malik MD Eosinophils (Bld) [#/Vol] 0.052 10*3/uL Normal 15-500 [facility] Comment on above: Performed By: #### 1 0231, 606, 243, 6399, 809 #### [facility] of [place] [address] [employer]: Jonathon Malik MD Eosinophils/100 WBC (Bld) 0.7 % Normal [facility] Comment on above: Performed By: #### 1 0231, 606, 243, 6399, 809 #### [facility] of [place] [address] [employer]: Jonathon Malik MD Erythrocyte distribution width (RBC) [Ratio] 13.3 % Normal 11.0-15.0 [facility] Comment on above: Performed By: #### 1 0231, 606, 243, 6399, 809 #### [facility] of [place] [address] [employer]: Jonathon Malik MD Hematocrit (Bld) [Volume fraction] 51.3 % High 38.5-50.0 [facility] Comment on above: Performed By: #### 1 0231, 606, 243, 6399, 809 #### [facility] of [place] [address] [employer]: Jonathon Malik MD Hemoglobin (Bld) [Mass/Vol] 16.4 g/dL Normal 13.2-17.1 [facility] Comment on above: Performed By: #### 1 0231, 606, 243, 6399, 809 #### [facility] of [place] [address] [employer]: Jonathon Malik MD Lymphocytes (Bld) [#/Vol] 1.554 10*3/uL Normal 850-3900 [facility] Comment on above: Performed By: #### 1 0231, 606, 243, 6399, 809 #### [facility] of [place] [address] [employer]: Jonathon Malik MD Lymphocytes/100 WBC (Bld) 21.0 % Normal [facility] Comment on above: Performed By: #### 1 0231, 60, 243, 6399, 809 #### [facility] of [place] [address] [employer]: Jonathon Malik MD MCH (RBC) [Entitic mass] 28.8 pg Normal 27.0-33.0 [facility] Comment on above: Performed By: #### 1 023, 606, 243, 6399, 809 #### [facility] of [place] [address] [employer]: Jonathon Malik MD MCHC (RBC) [Mass/Vol] 32.0 g/dL Normal 32.0-36.[address] [facility] Comment on above: Performed By: #### 1 023, 606, 243, 6399, 809 #### [facility] of [place] [address] [employer]: Jonathon Malik MD MCV (RBC) [Entitic vol] 90.2 fL Normal 80.0-100.0 [facility] Comment on above: Performed By: #### 1 023, 60, 243, 6399, 809 #### [facility] of [place] [address] [employer]: Jonathon Malik MD Monocytes (Bld) [#/Vol] 0.377 10*3/uL Normal 200-950 [facility] Comment on above: Performed By: #### 1 023, 606, 243, 6399, 809 #### [facility] of [place] [address] [employer]: Jonathon Malik MD Monocytes/100 WBC (Bld) 5.1 % Normal [facility] Comment on above: Performed By: #### 1 0231, 606, 243, 6399, 809 #### [facility] of [address], [address] [place] [address] [employer]: Jonathon Malik MD Neutrophils (Bld) [#/Vol] 5.38 10*3/uL Normal 3069-3045 [facility] Comment on above: Performed By: #### 1 0231, 606, 243, 6399, 809 #### [facility] of [address], [address] [place] [address] [employer]: Jonathon Malik MD Neutrophils/100 WBC (Bld) 72.7 % Normal [facility] Comment on above: Performed By: #### 1 0231, 606, 243, 6399, 809 #### [facility] of [address], [address] [place] [address] Director [employer]: Jonathon Malik MD Platelet mean volume (Bld) [Entitic vol] 11.8 fL Normal 7.5-12.5 [facility] Comment on above: Performed By: #### 1 0231, 606, 243, 6399, 809 #### [facility] of [address], [address] [place] [address] Director [employer]: Jonathon Malik MD Platelets (Bld) [#/Vol] 211 10*3/uL Normal 140-400 [facility] Comment on above: Performed By: #### 1 0231, 606, 243, 6399, 809 #### [facility] of [address], [address] [place] [address] Director [employer]: Jonathon Malik MD RBC (Bld) [#/Vol] 5.69 10*6/uL Normal 4.20-5.80 [facility] Comment on above: Performed By: #### 1 0231, 606, 243, 6399, 809 #### [facility] of [address], [address] [place] [address] Director [employer]: Jonathon Malik MD WBC (Bld) [#/Vol] 7.4 10*3/uL Normal 3.8-10.8 [facility] Comment on above: Performed By: #### 1 0231, 606, 243, 6399, 809 #### [facility] of [place] [address] Director [employer]: Jonathon Malik MD COMPREHENSIVE METABOLIC PANE [facility] 02-04-2024 Albumin [Mass/Vol] 5.0 g/dL Normal 3.6-5.1 [facility] Comment on above: Performed By: #### 1 0231, 606, 243, 6399, 809 #### [facility] of [place] [address] Director [employer]: Jonathon Malik MD Albumin/Globulin [Mass ratio] 2.0 {ratio} Normal 1.0-2.5 [facility] Comment on above: Performed By: #### 1 0231, 606, 243, 6399, 809 #### [facility] of [place] [address] Director [employer]: Jonathon Malik MD ALP [Catalytic activity/Vol] 51 U/L Normal 36-130 [facility] Comment on above: Performed By: #### 1 0231, 606, 243, 6399, 809 #### [facility] of [place] [address] Director [employer]: Jonathon Malik MD ALT [Catalytic activity/Vol] 41 U/L Normal 9-46 [facility] Comment on above: Performed By: #### 1 0231, 606, 243, 6399, 809 #### [facility] of [place] [address] Director [employer]: Jonathon Malik MD AST [Catalytic activity/Vol] 24 U/L Normal 10-40 [facility] Comment on above: Performed By: #### 1 0231, 606, 243, 6399, 809 #### [facility] of [address], [address] [place] [address] Director [employer]: Jonathon Malik MD Bilirubin [Mass/Vol] 0.7 mg/dL Normal 0.2-1.2 [facility] Comment on above: Performed By: #### 1 0231, 606, 243, 6399, 809 #### [facility] of [place] [address] Director [employer]: Jonathon Malik MD BUN/CREATININE RATIO SEE NOTE: Normal 6-22 [facility] Comment on above: Result Comment: Not Reported: BUN and Creatinine are within reference range. Performed By: #### 1 0231, 606, 243, 6399, 809 #### [facility] [place] [address] Director [employer]: Jonathon Malik MD Calcium [Mass/Vol] 9.9 mg/dL Normal 8.6-10.3 [facility] Comment on above: Performed By: #### 1 0231, 606, 243, 6399, 809 #### [facility] [place] [address] Director [employer]: Jonathon Malik MD Chloride [Moles/Vol] 100 mmol/L Normal 98-110 [facility] Comment on above: Performed By: #### 1 0231, 606, 243, 6399, 809 #### [facility] [place] [address] Director [employer]: Jonathon Malik MD CO2 [Moles/Vol] 28 mmol/L Normal 20-32 [facility] Comment on above: Performed By: #### 1 0231, 606, 243, 6399, 809 #### [facility] of [place] [address] Director [employer]: Jonathon Malik MD Creatinine [Mass/Vol] 1.12 mg/dL Normal 0.60-1.[address] [facility] Comment on above: Performed By: #### 1 0231, 606, 243, 6399, 809 #### [facility] of [place] [address], [address] [place] [address] Director [employer]: Jonathon Malik MD GFR/1.73 sq M.predicted among non-blacks MDRD (S/P/Bld) [Vol rate/Area] 92 mL/min/{1.73_m2} Normal > OR = 60 [facility] Comment on above: Performed By: #### 1 0231, 606, 243, 6399, 809 #### [facility] [place] [address] Director [employer]: Jonathon Malik MD Globulin (S) [Mass/Vol] 2.5 g/dL Normal 1.9-3.7 [facility] Comment on above: Performed By: #### 1 0231, 606, 243, 6399, 809 #### [facility] [place] [address] Director [employer]: Jonathon Malik MD Glucose [Mass/Vol] 96 mg/dL Normal 65-99 [facility] Comment on above: Result Comment: Fasting reference interval Performed By: #### 1 0231, 606, 243, 6399, 809 #### [facility] [place] [address] Director [employer]: Jonathon Malik MD Potassium [Moles/Vol] 4.0 mmol/L Normal 3.5-5.[address] [facility] [address] [facility] Comment on above: Performed By: #### 1 023, 60, 243, 6399, 809 #### [facility] [place] [address] Director [employer]: Jonathon Malik MD Protein [Mass/Vol] 7.5 g/dL Normal 6.1-8.1 [facility] Comment on above: Performed By: #### 1 0231, 606, 243, 6399, 809 #### [facility] [place] [address] Director [employer]: Jonathon Malik MD Sodium [Moles/Vol] 137 mmol/L Normal 135-146 [facility] Comment on above: Performed By: #### 1 0231, 606, 243, 6399, 809 #### [facility] [place] [address] Director [employer]: Jonathon Malik MD Urea nitrogen [Mass/Vol] 13 mg/dL Normal 7-25 [facility] Comment on above: Performed By: #### 1 0231, 606, 243, 6399, 809 #### [facility] [place] [address] Director [employer]: Jonathon Malik MD LIPASEon 02-04-2024 Lipase [Catalytic activity/Vol] 27 U/L Normal 7-60 [facility] Comment on above: Performed By: #### 1 0231, 606, 243, 6399, 809 #### [facility] [place] [address] Director [employer]: Jonathon Malik MD Laboratory - Chemistry and C hemistry - challengeon 02-04-2024 Cholesterol [Mass/Vol] 167 mg/dL Normal [facility] Cholesterol in HDL [Mass/Vol] 31 mg/dL Abnormal [facility] [employer] [facility] Cholesterol in LDL [Mass/Vol] 113 mg/dL Abnormal [facility] [employer] [facility], [facility] Triglyceride [Mass/Vol] 121 mg/dL Normal [place] [employer] [facility], [facility].; [employer], [employer] No Panel Informationon 02-03 CHOL/HDLC RATIO 5.4 Abnormal [facility], [facility].; [employer], [employer] NON HDL CHOLESTEROL 136 Abnormal [facility], [facility].; [place] [employer] [facility], [facility] SED RATE BY MODIFIED WESTERG RENon 02-04-2024 SED RATE BY MODIFIED WESTERGREN 2 mm/h Normal < OR = 15 [facility] Comment on above: Performed By: #### 1 0231, 606, 243, 6399, 809 #### [place] [address] Director [employer]: Jonathon Malik MD Laboratory - Chemistry and C hemistry - challengeon 02-01-2024 Albumin [Mass/Vol] 5.0 g/dL Normal 3.6 - 5.1 g/dL [facility], [facility].; [facility], [facility]. Albumin/Globulin [Mass ratio] 2.0 {ratio} Normal 1.0 - 2.5 [facility].; [facility], [facility]. ALP [Catalytic activity/Vol] 51 U/L Normal 36 - 130 U/L [facility].; [facility], [facility]. ALT [Catalytic activity/Vol] 41 U/L Normal 9 - 46 U/L [facility].; [facility], [facility]. Amylase [Catalytic activity/Vol] 59 U/L Normal 21 - 101 U/L [facility], [facility].; [facility], [email or web address]. AST [Catalytic activity/Vol] 24 U/L Normal 10 - 40 U/L [facility].; [place] [employer] [facility], [facility]. Bilirubin [Mass/Vol] 0.7 mg/dL Normal 0.2 - 1 .2 mg/dL [facility], [facility].; [place] [employer] [facility], [email or web address]. Bilirubin Ql (U) Negative Normal [facility].; [place] [employer] [facility], [facility] Calcium [Mass/Vol] 9.9 mg/dL Normal 8.6 - 10. 3 mg/dL [facility], [facility].; [facility], [facility]. Chloride [Moles/Vol] 100 mmol/L Normal 98 - 11 0 mmol/L [facility], [facility].; [place] [employer] [facility], [facility] CO2 [Moles/Vol] 28 mmol/L Normal 20 - 32 mmol/L [facility], [facility].; [place] [employer] [facility], [facility]. Creatinine [Mass/Vol] 1.12 mg/dL Normal 0.60 - 1.24 mg/dL [facility], [facility].; [place] [employer] CRP [Mass/Vol] mg/L Normal [facility].; [place] [employer] [facility], [facility]. GFR/1.73 sq M.predicted among non-blacks MDRD (S/P/Bld) [Vol rate/Area] 92 mL/min/{1.73_m2} Normal [facility], [facility].; [facility], [facility]. Glucose [Mass/Vol] 96 mg/dL Normal 65 - 99 mg/dL [facility].; [facility], [facility]. Ketones Ql (U) Negative Normal [facility].; [facility], [facility] Lipase [Catalytic activity/Vol] 27 U/L Normal 7 - 60 U/L [facility].; [facility], [facility] pH (U) 7.5 [pH] Normal [facility].; [facility], [facility]. Potassium [Moles/Vol] 4.0 mmol/L Normal 3.5 - 5.3 mmol/L [facility]; [facility], [facility]. Protein [Mass/Vol] 7.5 g/dL Normal 6.1 - 8.1 g/dL [facility].; [facility], [facility] Sodium [Moles/Vol] 137 mmol/L Normal 135 - 146 mmol/L [facility].; [facility], [facility]. Specific gravity (U) [Rel density] 1.020 Normal [facility]; [facility], [facility] Urea nitrogen [Mass/Vol] 13 mg/dL Normal 7 - 25 mg/dL [facility].; [facility], [facility]. Urobilinogen Qn (U) 0.2 mg/dL Normal [facility].; [facility] Laboratory - Hematology and Cell countson 02-01-2024 Basophils (Bld) [#/Vol] 0.037 10*3/uL Normal 0 - 200 {cells/uL} [facility], [facility].; [facility], [facility]. Basophils/100 WBC (Bld) 0.5 % Normal [facility].; [facility], [facility]. Eosinophils (Bld) [#/Vol] 0.052 10*3/uL Normal 15 - 500 {cells/uL} [facility], [facility].; [facility], [facility]. Eosinophils/100 WBC (Bld) 0.7 % Normal [facility]; [facility], [facility] Erythrocyte distribution width (RBC) [Ratio] 13.3 % Normal 11.0 - 15.0 % [facility].; [facility], [facility] Hematocrit (Bld) [Volume fraction] 51.3 % Abnormal 38.5 - 50.0 % [facility].; [facility], [facility] Hemoglobin (Bld) [Mass/Vol] 16.4 g/dL Normal 13.2 - 17.1 g/dL [facility].; [facility], [facility] Hemoglobin Ql (U) Negative Normal [facility].; [facility], [facility] Lymphocytes (Bld) [#/Vol] 1.554 10*3/uL Normal 850 - 3900 {cells/uL} [facility].; [facility], [facility] Lymphocytes/100 WBC (Bld) 21.0 % Normal [facility]; [facility], [facility] MCH (RBC) [Entitic mass] 28.8 pg Normal 27.0 - 33.0 pg [facility].; [facility], [facility]. MCHC (RBC) [Mass/Vol] 32.0 g/dL Normal 32.0 - 36.0 g/dL [facility].; [facility], [facility]. MCV (RBC) [Entitic vol] 90.2 fL Normal 80.0 - 100.0 fL [facility].; [facility], [facility] Monocytes (Bld) [#/Vol] 0.377 10*3/uL Normal 200 - 950 {cells/uL} [facility].; [facility], [facility]. Monocytes/100 WBC (Bld) 5.1 % Normal [facility].; [facility], [facility]. Neutrophils (Bld) [#/Vol] 5.38 10*3/uL Normal 1500 - 7800 {cells/uL} [facility].; [facility], [facility]. Neutrophils/100 WBC (Bld) 72.7 % Normal [facility].; [facility], [facility] Platelet mean volume (Bld) [Entitic vol] 11.8 fL Normal 7.5 - 12.5 fL [employer].; [employer]. Platelets (Bld) [#/Vol] 211 10*3/uL Normal 140 - 400 [employer].; [employer]. RBC (Bld) [#/Vol] 5.69 10*6/uL Normal 4.20 - 5.8 0 {Million/uL} [employer].; [employer], [email or web address]. WBC (Bld) [#/Vol] 7.4 10*3/uL Normal 3.8 - 10.8 [employer].; [employer]. Laboratory - Specimen inform ationon 02-01-2024 Appearance (U) clear Normal [employer].; [employer]. Color (U) yellow Normal [employer].; [employer], [email or web address]. Laboratory - Urinalysison Glucose Test strip (U) [Mass/Vol] Negative Normal [employer].; [employer], [email or web address]. Leukocyte esterase Test strip Ql (U) Negative Normal [employer].; [employer], [email or web address]. Nitrite Ql (U) Negative Normal [employer].; [employer]. Protein Ql (U) Negative Normal [employer] [employer].; [employer], [email or web address]. No Panel Informationon 01-31 BUN/CREATININE RATIO SEE NOTE: Normal 6 - 22 [employer].; [employer]. GLOBULIN 2.5 Normal 1.9 - 3.7 [employer].; [employer], [employer] SED RATE BY MODIFIED WESTERGREN 2 mm/h Normal [employer].; [employer] CT ABDOMEN/PELVIS WOon 01-28 CT ABDOMEN/PELVIS [place] [address] Patient: KATHRYN NORMAN JR Phone#: : 1995 Age: 28 Gender: M Pt. Type: Out Account: [id number] Location: 052 Ordering: MARCO ANTONIO MONREAL Exam Date: 01/29/2024/13:24 Family Phys: Charge Code: [id number] Physician: [place] Order #: [id number] Dose#: 7.7 mGy PROCEDURE: CT ABDOMEN/PELVIS WITHOUT CONTRAST COMPARISON: [facility], CT, ABDOMEN/PELVIS W CON, 03/10/2022, 8:43. INDICATIONS: Flank pain. TECHNIQUE: CT images were created without intravenous contrast. All CT scans at this facility use dose modulation, iterative reconstruction, and/or weight based dosing when appropriate to reduce radiation dose to as low as reasonably achievable. IV CONTRAST: No IV contrast used,0ml TOTAL DOSE: 7.7 CTDIvol(mGy) FINDINGS: Evaluation of the solid organs and soft tissues is limited in the absence of intravenous contrast. LIVER: Unremarkable in contour BILIARY: Gallbladder is absent PANCREAS: Unremarkable in contour SPLEEN: Unremarkable in contour KIDNEYS: No nephrolithiasis or hydronephrosis. ADRENALS: Normal. No mass or enlargement. AORTA/VASCULAR: No aortic aneurysm. RETROPERITONEUM: Limited evaluation for adenopathy in the absence of contrast. BOWEL/MESENTERY: No bowel obstruction or dilatation. Moderate stool burden. Appendix is not visualized. ABDOMINAL WALL: Normal. No mass or hernia. URINARY BLADDER: Normal. No visible focal wall thickening, lesion, or calculus. PELVIC NODES: Normal. No adenopathy. PELVIC ORGANS: Normal. No visible mass. Pelvic organs appropriate for patient age. BONES: Normal. No bony lesion or fracture. LUNG BASES: Normal. No visible pulmonary or pleural disease. OTHER: Negative. CONCLUSION: 1. No nephrolithiasis or hydronephrosis. In a patient with a history of hematuria, consider contrast-enhanced renal CT. [place] [address] Patient: KATHRYN NORMAN JR Phone#: : 1995 Age: 28 Gender: M Pt. Type: Out Account: [id number] Location: 052 Ordering: MARCO ANTONIO [employer] Exam Date: 01/29/2024/13:24 Family Phys: Charge Code: [id number] Physician: Ventura Order #: [id number] Dose#: 7.7 mGy Dictated by: Mandy Santana MD on 01/29/2024 at 17:21 Approved by: Mandy Santana MD on 01/29/2024 at 17:33 Normal [facility] CULTURE, URINE, ROUTINEon CULTURE, URINE, ROUTINE SEE NOTE Normal [facility] Comment on above: Result Comment: CULTURE, URINE, ROUTINE Micro Number: [id number] Test Status: Final Specimen Source: Urine Specimen Quality: Adequate Result: No Growth Performed By: #### 3 95 #### [facility] [address] [facility], [address] [place] [address] Director [employer]: Jonathon Malik MD Laboratory - Chemistry and C hemistry - challengeon 01-23-2024 Bilirubin Ql (U) Negative Normal [employer] [facility], [email or web address].; [employer], [email or web address]. Ketones Ql (U) Negative Normal [employer].; [employer]. pH (U) 6.5 [pH] Normal [employer].; [employer]. Specific gravity (U) [Rel density] 1.020 Normal [employer].; [employer]. Urobilinogen Qn (U) 0.2 mg/dL Normal [employer].; [employer]. Laboratory - Hematology and Cell countson 01-23-2024 Hemoglobin Ql (U) trace-intact Normal [employer].; [employer]. Laboratory - Specimen inform ationon 01-23-2024 Appearance (U) clear Normal [employer].; [employer]. Color (U) yellow Normal [employer].; [employer]. Laboratory - Urinalysison Glucose Test strip (U) [Mass/Vol] Negative Normal [employer].; [employer], [email or web address]. Leukocyte esterase Test strip Ql (U) Negative Normal [employer].; [employer], [email or web address]. Nitrite Ql (U) Negative Normal [employer] [facility] [employer].; [employer]. Protein Ql (U) Negative Normal [facility]; [facility] No Panel Informationon 01-22 CULTURE, URINE, ROUTINE SEE NOTE Normal [facility]; [facility] Laboratory - Chemistry and C hemistry - challengeon 09-18-2023 Potassium [Moles/Vol] 3.9 mmol/L Normal 3.5 - 5.1 mmol/L [facility]; [facility] Laboratory - Microbiology an d Antimicrobial susceptibilityon 09-14-2023 FLUAV Ag IA Ql (Throat) Positive Abnormal [facility]; [facility] FLUAV Ag IA Ql (Throat) Negative Normal [facility]; [facility] SARS-CoV-2 (COVID-19) RNA NATASHA+probe Ql (Unsp spec) Negative Normal [facility]; [facility] Laboratory - Chemistry and C hemistry - challengeon 06-01-2023 Albumin [Mass/Vol] 4.5 g/dL Normal 3.6 - 5.1 g/dL [facility]; [facility] Albumin/Globulin [Mass ratio] 1.9 {ratio} Normal 1.0 - 2.5 [facility]; [facility] ALP [Catalytic activity/Vol] 61 U/L Normal 36 - 130 U/L [facility]; [facility] ALT [Catalytic activity/Vol] 41 U/L Normal 9 - 46 U/L [facility]; [facility]. AST [Catalytic activity/Vol] 22 U/L Normal 10 - 40 U/L [facility]; [facility] Bilirubin [Mass/Vol] 0.6 mg/dL Normal 0.2 - 1 .2 mg/dL [facility]; [facility], [facility] Calcium [Mass/Vol] 9.8 mg/dL Normal 8.6 - 10. 3 mg/dL [facility]; [facility], [facility] Chloride [Moles/Vol] 104 mmol/L Normal 98 - 11 0 mmol/L [facility]; [facility]. Cholesterol [Mass/Vol] 184 mg/dL Normal [facility].; [facility], [facility]. Cholesterol in HDL [Mass/Vol] 31 mg/dL Abnormal [facility].; [facility], [facility]. Cholesterol in LDL [Mass/Vol] 129 mg/dL Abnormal [facility].; [facility], [facility]. CO2 [Moles/Vol] 28 mmol/L Normal 20 - 32 mmol/L [facility].; [facility], [facility]. Creatinine [Mass/Vol] 1.11 mg/dL Normal 0.60 - 1.24 mg/dL [facility].; [facility], [facility]. GFR/1.73 sq M.predicted among non-blacks MDRD (S/P/Bld) [Vol rate/Area] 94 mL/min/{1.73_m2} Normal [facility], [facility].; [facility], [facility]. Glucose [Mass/Vol] 96 mg/dL Normal 65 - 99 mg/dL [facility].; [employer], [facility]. Potassium [Moles/Vol] 4.3 mmol/L Normal 3.5 - 5.3 mmol/L [facility].; [facility], [facility]. Protein [Mass/Vol] 6.9 g/dL Normal 6.1 - 8.1 g/dL [facility], [facility].; [place] [employer] [facility], [facility]. Sodium [Moles/Vol] 140 mmol/L Normal 135 - 146 mmol/L [facility].; [place] [employer], [email or web address]. Triglyceride [Mass/Vol] 127 mg/dL Normal [facility].; [employer], [facility]. TSH Qn 1.23 m[IU]/L Normal 0.40 - 4.50 {mIU/L} [facility].; [employer], [facility]. Urea nitrogen [Mass/Vol] 11 mg/dL Normal 7 - 25 mg/dL [facility].; [employer], [facility]. Laboratory - Hematology and Cell countson 06-01-2023 Basophils (Bld) [#/Vol] 0.028 10*3/uL Normal 0 - 200 {cells/uL} [facility].; [place] [employer] [facility], [facility]. Basophils/100 WBC (Bld) 0.6 % Normal [facility].; [facility], [facility]. Eosinophils (Bld) [#/Vol] 0.141 10*3/uL Normal 15 - 500 {cells/uL} [facility], [facility].; [facility], [facility]. Eosinophils/100 WBC (Bld) 3.0 % Normal [facility].; [facility], [facility]. Erythrocyte distribution width (RBC) [Ratio] 12.5 % Normal 11.0 - 15.0 % [facility], [facility] [facility] [place] [employer] [facility], [facility]. Hematocrit (Bld) [Volume fraction] 48.7 % Normal 38.5 - 50.0 % [facility], [facility].; [place] [employer] [facility], [facility]. Hemoglobin (Bld) [Mass/Vol] 16.1 g/dL Normal 13.2 - 17.1 g/dL [facility], [facility].; [facility], [facility]. Lymphocytes (Bld) [#/Vol] 1.297 10*3/uL Normal 850 - 3900 {cells/uL} [facility].; [place] [employer], [facility]. Lymphocytes/100 WBC (Bld) 27.6 % Normal [facility].; [place] [employer] [facility], [facility]. MCH (RBC) [Entitic mass] 28.9 pg Normal 27.0 - 33.0 pg [facility], [facility].; [place] [employer], [facility]. MCHC (RBC) [Mass/Vol] 33.1 g/dL Normal 32.0 - 36.0 g/dL [facility], [facility].; [place] [employer], [facility]. MCV (RBC) [Entitic vol] 87.3 fL Normal 80.0 - 100.0 fL [facility].; [place] [employer] [facility], [facility]. Monocytes (Bld) [#/Vol] 0.451 10*3/uL Normal 200 - 950 {cells/uL} [facility], [facility].; [place] [employer] Monocytes/100 WBC (Bld) 9.6 % Normal [facility].; [facility], [facility]. Neutrophils (Bld) [#/Vol] 2.782 10*3/uL Normal 1500 - 7800 {cells/uL} [facility].; [place] [facility] [facility]. Neutrophils/100 WBC (Bld) 59.2 % Normal [facility]; [facility] Platelet mean volume (Bld) [Entitic vol] 11.6 fL Normal 7.5 - 12.5 fL [facility], [facility].; [place] [employer] [facility], [facility] Platelets (Bld) [#/Vol] 194 10*3/uL Normal 140 - 400 [facility].; [place] [employer] [facility], [facility]. RBC (Bld) [#/Vol] 5.58 10*6/uL Normal 4.20 - 5.8 0 {Million/uL} [facility].; [facility], [facility]. WBC (Bld) [#/Vol] 4.7 10*3/uL Normal 3.8 - 10.8 [facility].; [facility] No Panel Informationon 06-01 BUN/CREATININE RATIO SEE NOTE: Normal 6 - 22 [facility].; [place] [employer] [facility], [facility] CHOL/HDLC RATIO 5.9 Abnormal [facility]; [facility], [facility] GLOBULIN 2.4 Normal 1.9 - 3.7 [facility]; [place] [employer] [facility], [facility]. NON HDL CHOLESTEROL 153 Abnormal [facility].; [place] [facility] [facility] Laboratory - Chemistry and C hemistry - challengeon 10-28-2021 Albumin [Mass/Vol] 5.0 g/dL Normal 3.6 - 5.1 g/dL [facility].; [place] [employer], [facility]. Albumin/Globulin [Mass ratio] 1.9 {ratio} Normal 1.0 - 2.5 [facility].; [place] [facility] [facility]. ALP [Catalytic activity/Vol] 45 U/L Normal 36 - 130 U/L [facility].; [place] [email or web address]. ALT [Catalytic activity/Vol] 28 U/L Normal 9 - 46 U/L [facility].; [place] [employer], [email or web address]. AST [Catalytic activity/Vol] 17 U/L Normal 10 - 40 U/L [facility], [facility].; [facility], [facility] Bilirubin [Mass/Vol] 0.5 mg/dL Normal 0.2 - 1 .2 mg/dL [facility], [facility].; [facility], [facility]. Calcium [Mass/Vol] 10.1 mg/dL Normal 8.6 - 10. 3 mg/dL [facility], [facility].; [facility], [facility] Chloride [Moles/Vol] 103 mmol/L Normal 98 - 11 0 mmol/L [facility], [facility].; [facility], [facility]. Cholesterol [Mass/Vol] 186 mg/dL Normal [facility], [facility].; [facility], [facility] Cholesterol in HDL [Mass/Vol] 44 mg/dL Normal [facility].; [facility], [facility] Cholesterol in LDL [Mass/Vol] 123 mg/dL Abnormal [facility], [facility]; [facility], [facility] CO2 [Moles/Vol] 28 mmol/L Normal 20 - 32 mmol/L [facility].; [facility], [facility]. Creatinine [Mass/Vol] 1.15 mg/dL Normal 0.60 - 1.35 mg/dL [facility], [facility].; [facility], [facility]. GFR/1.73 sq M.predicted among blacks MDRD (S/P/Bld) [Vol rate/Area] 102 mL/min/{1.73_m2} Normal [facility], [facility].; [facility], [facility]. Glucose [Mass/Vol] 94 mg/dL Normal 65 - 99 mg/dL [facility].; [facility], [facility]. Potassium [Moles/Vol] 4.1 mmol/L Normal 3.5 - 5.3 mmol/L [facility], [facility].; [facility], [facility]. Protein [Mass/Vol] 7.6 g/dL Normal 6.1 - 8.1 g/dL [facility], [facility].; [facility] Sodium [Moles/Vol] 139 mmol/L Normal 135 - 146 mmol/L [facility], [facility].; [facility] Triglyceride [Mass/Vol] 87 mg/dL Normal [facility], [facility].; [facility], [facility]. Urea nitrogen [Mass/Vol] 18 mg/dL Normal 7 - 25 mg/dL [facility].; [facility], [facility]. No Panel Informationon 10-28 BUN/CREATININE RATIO NOT APPLICABLE Normal 6 - 22 [facility]; [facility], [facility]. CHOL/HDLC RATIO 4.2 Normal [facility]; [facility], [facility] eGFR NON-AFR. MALAWIAN 88 Normal [facility]; [place] [employer] [facility], [facility]. GLOBULIN 2.6 Normal 1.9 - 3.7 [facility].; [facility], [facility] NON HDL CHOLESTEROL 142 Abnormal [facility]; [facility], [facility]. GC/Chlamydia Amp, Uron 09-12 Chlamydia Amplif, Ur CLNEG Normal [facility] Lab Comment on above: Performed By: #### U GCCT #### [facility] Routine Lab [address] [address] GC Amplification, Ur NGNEG Normal [facility] Lab Comment on above: Performed By: #### U GCCT #### [facility] Routine Lab [facility] [address] No Panel Informationon 09-10 Chlamydia Amplif, Ur Negative Normal [facility].; [place] [facility] [facility]. GC Amplification, Ur Negative Normal [facility]; [place] [facility] [facility]. Laboratory - Chemistry and C hemistry - challengeon 2020 Cholesterol [Mass/Vol] 147 mg/dL Normal [facility].; [place] [employer] [facility], [facility]. Cholesterol in HDL [Mass/Vol] 35 mg/dL Abnormal [facility].; [place] [employer] [facility], [facility]. Cholesterol in LDL [Mass/Vol] 96 mg/dL Normal [facility].; [place] [employer] [facility], [facility]. Glucose [Mass/Vol] 91 mg/dL Normal 65 - 99 mg/dL [facility].; [facility], [facility]. Triglyceride [Mass/Vol] 75 mg/dL Normal [facility].; [facility]. Laboratory - Hematology and Cell countson 2020 HbA1c (Bld) [Mass fraction] 5.2 % Normal [facility].; [facility]. No Panel Informationon 06-28 CHOL/HDLC RATIO 4.2 Normal [facility].; [facility]. NON HDL CHOLESTEROL 112 Normal [facility].; [facility]. 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 [facility] Comment on above: Result Comment: Nega tive for This test was developed and its performance characteristics determined by [facility]'s [facility] [place]. This test has been authorized by FDA under an Emergency Use Authorization (EUA). This test has been validated in accordance with the FDA's Guidance Document Policy for Diagnostics Testing in Laboratories Certified to Perform High Complexity Testing under CLIA prior to Emergency use Authorization for Coronavirus Disease 2019 during the Public Health Emergency issued on October 11, 2019. COVID19 (SARS This test was developed and its performance characteristics determined by [facility] [place]. This test has been authorized by FDA under an Emergency Use Authorization (EUA). This test has been validated in accordance with the FDA's Guidance Document Policy for Diagnostics Testing in Laboratories Certified to Perform High Complexity Testing under CLIA prior to Emergency use Authorization for Coronavirus Disease 2019 during the Public Health Emergency issued on October 11, 2019. CoV2) by PCR. This test was developed and its performance characteristics determined by [facility] [place]. This test has been authorized by FDA under an Emergency Use Authorization (EUA). This test has been validated in accordance with the FDA's Guidance Document Policy for Diagnostics Testing in Laboratories Certified to Perform High Complexity Testing under CLIA prior to Emergency use Authorization for Coronavirus Disease 2019 during the Public Health Emergency issued on October 11, 2019. Performed By: #### C OVID #### [facility] Reference [address] [place], [place] [address] Coronavirus 2019on 06-09-202 0 COVID 19 Source EARLY CHILDHOOD EDUCATION COORDINATOR Normal [facility] Comment on above: Result Comment: Naso pharyngeal Corrected on 06/09 AT 1028: Previously reported as U Swab Corrected on 06/09 AT 1028: Previously reported as U Performed By: #### C OVID #### [facility] Reference [address] [address] [facility] 01-30-2020 OOP Ingris Sellers [facility] Work Phone: Office Visit: Test Result, R m: 01-30-2020 NEGATED: Highlighted rowMRI (magnetic resonance imaging) history of the Lumbar Spine on 01/22/2020 at [facility] Work Phone: Clinical Summary: HMSPatient IDon 01-12-2020 OOP Ingris Sellers [facility] Work Phone: Clinical Summary: Outcome Henry mmaryon 01-12-2020 Oswestry Pain Disability Index score 28 [facility] Work Phone: pain affects sex life (Oswestry Pain Disability Index) 0 [facility] Work Phone: pain affects sleeping (Oswestry Pain Disability Index) 3 [facility] Work Phone: pain affects social life (Oswestry Pain Disability Index) 3 [facility] Work Phone: pain intensity (Oswestry Pain Disability Index) 2 [facility] Work Phone: pain when traveling (Oswestry Pain Disability Index) 1 [facility] Work Phone: pain when walking (Oswestry Pain Disability Index) 0 [facility] Work Phone: pain while sitting (Oswestry Pain Disability Index) 2 [facility] Work Phone: pain while standing (Oswestry Pain Disability Index) 1 [facility] Work Phone: pain with lifting (Oswestry Pain Disability Index) 1 [facility] Work Phone: pain with personal care (Oswestry Pain Disability Index) 1 [facility] Work Phone: diagnostic criteria for SLE #1 3 [facility] Work Phone: diagnostic criteria for SLE #10 3 [facility] Work Phone: diagnostic criteria for SLE #11 11 [facility] Work Phone: diagnostic criteria for SLE #12 11 [facility] Work Phone: diagnostic criteria for SLE #13 37.4 [facility] Work Phone: diagnostic criteria for SLE #14 41.1 [facility] Work Phone: diagnostic criteria for SLE #15 [phone] [facility] Work Phone: diagnostic criteria for SLE #2 3 [facility] Work Phone: diagnostic criteria for SLE #3 3 [facility] Work Phone: diagnostic criteria for SLE #4 2 [facility] Work Phone: diagnostic criteria for SLE #5 3 [facility] Work Phone: diagnostic criteria for SLE #6 2 [facility] Work Phone: diagnostic criteria for SLE #7 4 [facility] Work Phone: diagnostic criteria for SLE #8 3 [facility] Work Phone: diagnostic criteria for SLE #9 4 [facility] Work Phone: Office Visit: New/Est - 1st visit with physician, Rm: 22on 01-12-2020 NEGATED: Highlighted rowMRI (magnetic resonance imaging) history of the Lumbar spine on 10/16/2019 at [facility] Work Phone: NEGATED: Highlighted rowxray history of the Lumbar spine on 10/30/2019 at [facility] Work Phone: Laboratory - Microbiology an d Antimicrobial susceptibilityon 02-24-2019 C. trachomatis rRNA NATASHA+probe Ql (Unsp spec) Not detected Normal [employer]; [employer] N. gonorrhoeae rRNA NATASHA+probe Ql (Unsp spec) Not detected Normal [employer].; [employer] Laboratory - Serology - non- microon 05-17-2018 Nuclear Ab IF Ql (S) Negative Normal [employer]; [employer] No Panel Informationon 12-27 MONOSPOT TEST (IN HOUSE) Negative Normal [employer]; [employer]. Laboratory - Microbiology an d Antimicrobial susceptibilityon 10-17-2010 Bacteria identified Cx Nom (Unsp spec) SEE NOTE Normal [employer].; [employer]. Laboratory - Specimen inform ationon 10-17-2010 Specimen source Nom (Unsp spec) OTHER-RT GREAT TOE Normal [employer].; [employer]. Laboratory - Chemistry and C hemistry - challengeon 08-18-2010 Albumin [Mass/Vol] 4.5 g/dL Normal 3.6 - 5.1 g/dL [employer].; [employer]. Albumin/Globulin [Mass ratio] 2.1 {ratio} Normal 1.0 - 2.1 [employer].; [employer]. ALP [Catalytic activity/Vol] 236 U/L Normal 92 - 468 U/L [employer].; [employer]. ALT [Catalytic activity/Vol] 20 U/L Normal 7 - 32 U/L [facility].; [facility], [facility]. AST [Catalytic activity/Vol] 22 U/L Normal 12 - 32 U/L [facility].; [facility], [facility]. Bilirubin [Mass/Vol] 0.4 mg/dL Normal 0.2 - 1 .1 mg/dL [facility], [facility].; [facility], [facility]. Bilirubin Ql (U) Negative Normal [facility].; [facility], [facility] Calcium [Mass/Vol] 9.5 mg/dL Normal 8.9 - 10. 4 mg/dL [facility].; [facility], [facility] Chloride [Moles/Vol] 106 mmol/L Normal 98 - 11 0 mmol/L [facility].; [facility], [facility]. CO2 [Moles/Vol] 25 mmol/L Normal 21 - 33 mmol/L [facility], [facility].; [facility], [facility]. Creatinine [Mass/Vol] 0.62 mg/dL Normal 0.54 - 0.95 mg/dL [facility].; [facility], [facility]. GFR/1.73 sq M.predicted among blacks MDRD (S/P/Bld) [Vol rate/Area] SEE NOTE Normal [facility], [facility].; [facility], [facility]. GFR/1.73 sq M.predicted MDRD (S/P/Bld) [Vol rate/Area] SEE NOTE Normal [facility], [facility].; [facility], [facility]. Globulin (S) [Mass/Vol] 2.2 g/dL Normal 2.1 - 3.5 g/dL [facility], [facility].; [facility], [facility]. Glucose [Mass/Vol] 91 mg/dL Normal 65 - 99 mg/dL [facility].; [facility], [facility]. Ketones Ql (U) Negative Normal [facility], [facility].; [facility], [facility]. pH (U) 7.5 [pH] Normal 4.6 - 8.0 [facility], [facility].; [place] [employer] [facility], [facility]. Potassium [Moles/Vol] 4.1 mmol/L Normal 3.8 - 5.1 mmol/L [facility], [facility].; [employer]. Protein [Mass/Vol] 6.7 g/dL Normal 6.3 - 8.2 g/dL [place] [employer]. Sodium [Moles/Vol] 141 mmol/L Normal 135 - 146 mmol/L [place] [employer] [facility].; [employer]. Specific gravity (U) [Rel density] 1.020 Normal 1.001 - 1.025 [place] [employer]. Urea nitrogen [Mass/Vol] 14 mg/dL Normal 7 - 20 mg/dL [place] [employer]. Urea nitrogen/Creatinine [Mass ratio] 22.3 mg/mg Abnormal 6 - 22 [place] [employer]. Laboratory - Hematology and Cell countson 08-18-2010 Hemoglobin Ql (U) Negative Normal [place] [employer]. Laboratory - Specimen inform ationon 08-18-2010 Appearance (U) clear Normal [facility] [employer]. Color (U) yellow Normal [place] [employer]. Laboratory - Urinalysison Glucose Test strip (U) [Mass/Vol] Negative Normal [place] [employer]. Leukocyte esterase Test strip Ql (U) Negative Normal [place] [employer].; [employer]. Nitrite Ql (U) Negative Normal [facility] [employer]. Protein Ql (U) 30 mg/dL Abnormal [facility] [employer]. No Panel Informationon 08-18 UA - UROBILINOGEN 0.2 mg/dL Normal [place] [employer]. Vital Signs Date Time Vital Sign Value Performing Clinician Facility 04-08-2025 09:39-0400 Body height 180.34 cm Marco Antonio AMADOR Work Phone: [facility] 04-08-2025 09:39-0400 Body mass index (BMI) [Ratio] 26.1 kg/m2 Marco Antonio AMADOR Work Phone: [facility] 04-08-2025 09:39-0400 Body temperature 98.5 [degF] Marco Antonio Monreal PA Work Phone: [facility] 04-08-2025 09:39-0400 Body weight 85.04 kg Marco Antonio Monreal PA Work Phone: [facility] 04-08-2025 09:39-0400 Diastolic blood pressure 84 mm[Hg] Marco Antonio Monreal PA Work Phone: [facility] 04-08-2025 09:39-0400 Heart rate 76 /min Marco Antonio Monreal PA Work Phone: [facility] 04-08-2025 09:39-0400 Respiratory rate 16 /min Marco Antonio Monreal PA Work Phone: [facility] 04-08-2025 09:39-0400 SaO2% (BldA) [Mass fraction] 97 % Marco Antonio Monreal PA Work Phone: [facility] 04-08-2025 09:39-0400 Systolic blood pressure 134 mm[Hg] Marco Antonio Monreal PA Work Phone: [facility] 01-26-2025 15:51-0400 Body height 184.15 cm Avani Mckinney [facility], [facility].; [facility] 01-26-2025 15:51-0400 Body mass index (BMI) [Ratio] 23.94 kg/m2 Avani Mckinney [facility].; [facility] 01-26-2025 15:51-0400 Body surface area Derived from formula 2.04 m2 Avani Mckinney [facility], [facility].; [facility]. 01-26-2025 15:51-0400 Body temperature 97.8 [degF] Avani Mckinney [facility].; [facility] Comment on above: Method: Tympanic 01-26-2025 15:51-0400 Body weight 81.19 kg [facility]i [facility]ck[facility]ney [facility].; [employer] [facility]. 01-26-2025 15:51-0400 Diastolic blood pressure 72 mm[Hg] [facility]i [facility]ck[facility]ney [facility].; [employer]. Comment on above: Patient Position: Si tting; Cuff Location: Left Arm; Cuff Size: Standard 01-26-2025 15:51-0400 Heart rate 85 /min [facility]vani [facility]ckinney [facility].; [employer]. Comment on above: Pattern: Regular 01-26-2025 15:51-0400 Inhaled oxygen concentration 21 % [facility]i Hank [facility].; [employer]. Comment on above: Room air 01-26-2025 15:51-0400 SaO2% (BldA) [Mass fraction] 98 % [facility] [employer]. 01-26-2025 15:51-0400 Systolic blood pressure 118 mm[Hg] Avani [facility]ck[facility]ney [facility] [employer]. Comment on above: Patient Position: Si tting; Cuff Location: Left Arm; Cuff Size: Standard 01-19-2025 15:34-0400 Body height 184.15 cm Jeane Stephenson [facility].; [place] [employer]. 01-19-2025 15:34-0400 Body mass index (BMI) [Ratio] 24.24 kg/m2 Jeane Stephenson [facility].; [place] [employer]. 01-19-2025 15:34-0400 Body surface area Derived from formula 2.05 m2 Jeane Stephenson [facility].; [place] [employer]. 01-19-2025 15:34-0400 Body weight 82.19 kg Jeane Stephenson [facility].; [employer]. 01-19-2025 15:34-0400 Diastolic blood pressure 78 mm[Hg] Jeane Stephenson [facility].; [employer]. Comment on above: Patient Position: Si tting; Cuff Location: Left Arm; Cuff Size: Standard 01-19-2025 15:34-0400 Heart rate 75 /min Jeane Stephenson MA [employer].; [employer]. Comment on above: Pattern: Regular 01-19-2025 15:34-0400 Systolic blood pressure 130 mm[Hg] Jeane Stephenson MA [employer].; [employer]. Comment on above: Patient Position: Si tting; Cuff Location: Left Arm; Cuff Size: Standard 10-20-2024 09:01-0400 Body height 184.15 cm Shante Kurtz RN [employer].; [employer]. 10-20-2024 09:01-0400 Body mass index (BMI) [Ratio] 23.54 kg/m2 Shante Kurtz RN [employer] [facility] [employer]. 10-20-2024 09:01-0400 Body surface area Derived from formula 2.03 m2 Shante Kurtz RN [employer].; [employer]. 10-20-2024 09:01-0400 Body weight 79.83 kg Shante Kurtz RN [employer].; [employer]. 10-20-2024 09:01-0400 Diastolic blood pressure 71 mm[Hg] Shante Kurtz RN [employer].; [employer]. Comment on above: Patient Position: Si tting; Cuff Location: Left Arm; Cuff Size: Standard 10-20-2024 09:01-0400 Heart rate 74 /min Shante Kurtz RN [employer].; [employer]. Comment on above: Pattern: Regular 10-20-2024 09:01-0400 Inhaled oxygen concentration 21 % Shante Kurtz RN [employer].; [employer]. Comment on above: Room air 10-20-2024 09:01-0400 SaO2% (BldA) [Mass fraction] 97 % Shante Kurtz RN [employer].; [employer]. 10-20-2024 09:01-0400 Systolic blood pressure 114 mm[Hg] Shante Kurtz RN [facility] [place] [employer] [facility]. Comment on above: Patient Position: Si tting; Cuff Location: Left Arm; Cuff Size: Standard 10-02-2024 15:35-0500 Body height 184.15 cm [facility].; [facility]. 10-02-2024 15:35-0500 Body mass index (BMI) [Ratio] 23.81 kg/m2 [facility].; [place] [employer] [facility]. 10-02-2024 15:35-0500 Body surface area Derived from formula 2.04 m2 Avani Hank [facility].; [place] [employer] [facility]. 10-02-2024 15:35-0500 Body weight 80.74 kg A[facility]i [facility] [place] [employer]. 10-02-2024 15:35-0500 Diastolic blood pressure 74 mm[Hg] Avani [facility].; [employer]. Comment on above: Patient Position: Si tting; Cuff Location: Left Arm; Cuff Size: Standard 10-02-2024 15:35-0500 Heart rate 99 /min Avani [facility]ck[facility].; [employer]. Comment on above: Pattern: Regular 10-02-2024 15:35-0500 Inhaled oxygen concentration 21 % [facility].; [employer]. Comment on above: Room air 10-02-2024 15:35-0500 SaO2% (BldA) [Mass fraction] 98 % Avani [facility]ck[facility].; [employer]. 10-02-2024 15:35-0500 Systolic blood pressure 137 mm[Hg] Avani [facility]ckinney [facility].; [employer]. Comment on above: Patient Position: Si tting; Cuff Location: Left Arm; Cuff Size: Standard 08-18-2024 10:49-0500 Body height 184.15 cm Jeane Stephenson MA [facility].; [facility]. 08-18-2024 10:49-0500 Body mass index (BMI) [Ratio] 23.68 kg/m2 Jeane Stephenson MA [facility].; [facility]. 08-18-2024 10:49-0500 Body surface area Derived from formula 2.03 m2 Jeane Stephenson MA [facility].; [facility]. 08-18-2024 10:49-0500 Body temperature 97.7 [degF] Jeane Stephenson MA [facility].; [facility]. 08-18-2024 10:49-0500 Body weight 80.29 kg Jeane Stephenson MA [facility].; [facility]. 08-18-2024 10:49-0500 Diastolic blood pressure 98 mm[Hg] Jeane Stephenson MA [facility].; [place] [employer]. Comment on above: Patient Position: Si tting; Cuff Location: Left Arm; Cuff Size: Standard 08-18-2024 10:49-0500 Heart rate 96 /min Jeane Stephenson MA [facility].; [employer] [facility]. Comment on above: Pattern: Regular 08-18-2024 10:49-0500 Inhaled oxygen concentration 21 % Jeane Stephenson MA [facility].; [employer]. Comment on above: Room air 08-18-2024 10:49-0500 SaO2% (BldA) [Mass fraction] 99 % Jeane Stephenson MA [facility].; [employer]. 08-18-2024 10:49-0500 Systolic blood pressure 138 mm[Hg] Jeane Stephenson MA [facility].; [place] [employer]. Comment on above: Patient Position: Si tting; Cuff Location: Left Arm; Cuff Size: Standard 07-28-2024 15:36-0500 Body height 184.15 cm Avani Mckinney [facility].; [place] [employer] [facility]. 07-28-2024 15:36-0500 Body mass index (BMI) [Ratio] 23.81 kg/m2 [place] [facility].; [facility]. 07-28-2024 15:36-0500 Body surface area Derived from formula 2.04 m2 [place] [facility].; [employer] 07-28-2024 15:36-0500 Body weight 80.74 kg Avani [facility].; [employer]. 07-28-2024 15:36-0500 Diastolic blood pressure 73 mm[Hg] [place] [facility].; [employer] [facility], [email or web address]. Comment on above: Patient Position: Si tting; Cuff Location: Left Arm; Cuff Size: Standard 07-28-2024 15:36-0500 Heart rate 85 /min [place] [facility].; [employer]. Comment on above: Pattern: Regular 07-28-2024 15:36-0500 Systolic blood pressure 111 mm[Hg] [place] [facility].; [employer]. Comment on above: Patient Position: Si tting; Cuff Location: Left Arm; Cuff Size: Standard 06-02-2024 09:41-0400 Body height 184.15 cm Shante Kurtz RN [facility].; [employer]. 06-02-2024 09:41-0400 Body mass index (BMI) [Ratio] 23.68 kg/m2 Shante Kurtz RN [facility].; [employer]. 06-02-2024 09:41-0400 Body surface area Derived from formula 2.03 m2 Shante Kurtz RN [facility].; [employer]. 06-02-2024 09:41-0400 Body temperature 98.7 [degF] Shante Kurtz RN [facility].; [employer]. Comment on above: Method: Tympanic 06-02-2024 09:41-0400 Body weight 80.29 kg Shante Kurtz RN [facility].; [employer]. 06-02-2024 09:41-0400 Diastolic blood pressure 75 mm[Hg] Shante Kurtz RN [facility].; [place] [employer]. Comment on above: Patient Position: Si tting; Cuff Location: Left Arm; Cuff Size: Standard 06-02-2024 09:41-0400 Heart rate 83 /min Shante Kurtz RN [facility].; [place] [employer]. Comment on above: Pattern: Regular 06-02-2024 09:41-0400 Inhaled oxygen concentration 21 % Shante Kurtz RN [facility].; [place] [employer]. Comment on above: Room air 06-02-2024 09:41-0400 SaO2% (BldA) [Mass fraction] 98 % Shante Kurtz RN [facility].; [employer]. 06-02-2024 09:41-0400 Systolic blood pressure 116 mm[Hg] Shante Kurtz RN [place] [employer].; [employer]. Comment on above: Patient Position: Si tting; Cuff Location: Left Arm; Cuff Size: Standard 05-27-2024 09:53-0400 Body height 184.15 cm Marco Antonio AMADOR-C Work Phone: [place] [employer].; [employer]. 05-27-2024 09:53-0400 Body mass index (BMI) [Ratio] 23.42 kg/m2 Marco Antonio Monreal PA-C Work Phone: [employer].; [employer]. 05-27-2024 09:53-0400 Body surface area Derived from formula 2.02 m2 Marco Antonio Monreal PA-C Work Phone: [employer].; [employer]. 05-27-2024 09:53-0400 Body weight 79.44 kg Marco Antonio Monreal PA-C Work Phone: [employer].; [employer] 05-27-2024 09:53-0400 Diastolic blood pressure 86 mm[Hg] Marco Antonio J Monreal PA-C Work Phone: [facility] [employer]; [employer]. Comment on above: Patient Position: Si tting; Cuff Location: Left Arm; Cuff Size: Standard 05-27-2024 09:53-0400 Heart rate 81 /min Marco Antoniodillon Monreal PA-C Work Phone: [employer]; [employer] Comment on above: Pattern: Regular 05-27-2024 09:53-0400 Inhaled oxygen concentration 21 % Marco Antonio J Monreal PA-C Work Phone: [place] [employer]; [employer] Comment on above: Room air 05-27-2024 09:53-0400 SaO2% (BldA) [Mass fraction] 98 % Marco Antonio Monreal PA-C Work Phone: [place] [employer]; [employer] 05-27-2024 09:53-0400 Systolic blood pressure 125 mm[Hg] Marco Antonio J Monreal PA-C Work Phone: [place] [employer]; [employer]. Comment on above: Patient Position: Si tting; Cuff Location: Left Arm; Cuff Size: Standard 04-15-2024 10:42-0400 Body height 184.15 cm Jeane Stephenson MA [facility].; [place] [employer] [facility] 04-15-2024 10:42-0400 Body mass index (BMI) [Ratio] 23.73 kg/m2 Jeane Stephenson MA [facility].; [place] [employer] [facility]. 04-15-2024 10:42-0400 Body surface area Derived from formula 2.04 m2 Jeane Stephenson MA [facility].; [place] [employer] [facility]. 04-15-2024 10:42-0400 Body weight 80.49 kg Jeane Stephenson MA [facility] [employer] [place] [employer]. 04-15-2024 10:42-0400 Diastolic blood pressure 86 mm[Hg] Jeane Stephenson MA [employer].; [employer]. Comment on above: Patient Position: Si tting; Cuff Location: Left Arm; Cuff Size: Standard 04-15-2024 10:42-0400 Heart rate 83 /min Jeane Stephenson MA [employer].; [employer]. Comment on above: Pattern: Regular 04-15-2024 10:42-0400 Systolic blood pressure 127 mm[Hg] Jeane Stephenson MA [employer].; [employer]. Comment on above: Patient Position: Si tting; Cuff Location: Left Arm; Cuff Size: Standard 02-01-2024 12:55-0400 Body temperature 97.6 [degF] Jeane Stephenson MA [employer].; [employer]. 02-01-2024 12:55-0400 Body weight 80.29 kg Jeane Stephenson MA [employer].; [employer]. 02-01-2024 12:55-0400 Diastolic blood pressure 89 mm[Hg] Jeane Stephenson MA [employer].; [employer]. Comment on above: Patient Position: Si tting; Cuff Location: Left Arm; Cuff Size: Standard 02-01-2024 12:55-0400 Heart rate 86 /min Jeane Stephenson MA [employer].; [employer]. Comment on above: Pattern: Regular 02-01-2024 12:55-0400 Systolic blood pressure 137 mm[Hg] Jeane Stephenson MA [employer].; [employer]. Comment on above: Patient Position: Si tting; Cuff Location: Left Arm; Cuff Size: Standard 01-23-2024 15:29-0400 Body height 184.15 cm Carin Kang MA [employer].; [employer]. 01-23-2024 15:29-0400 Body mass index (BMI) [Ratio] 23.94 kg/m2 Carin Kang MA [employer].; [employer]. 01-23-2024 15:29-0400 Body surface area Derived from formula 2.04 m2 Carin Kang MA [facility].; [employer] [facility]. 01-23-2024 15:29-0400 Body temperature 97.9 [degF] Carinberenice Armentaquang LACEY [facility].; [employer]. Comment on above: Method: Tympanic 01-23-2024 15:290400 Body weight 81.19 kg Carin Kang MA [facility].; [employer]. 01-23-2024 15:29-0400 Diastolic blood pressure 87 mm[Hg] Carinberenice Armentaquang LACEY [facility].; [employer]. Comment on above: Patient Position: Si tting; Cuff Location: Left Arm; Cuff Size: Standard 01-23-2024 15:29-0400 Heart rate 82 /min Carin Kang MA [facility].; [employer]. Comment on above: Pattern: Regular 01-23-2024 15:29-0400 Systolic blood pressure 126 mm[Hg] Carin Kang MA [facility].; [employer]. Comment on above: Patient Position: Si tting; Cuff Location: Left Arm; Cuff Size: Standard 12-03-2023 08:41-0400 Body height 184.15 cm Shante Kurtz RN [place] [employer] [facility].; [employer]. 12-03-2023 08:41-0400 Body mass index (BMI) [Ratio] 24.34 kg/m2 Shante Kurtz RN [place] [employer] [facility].; [employer]. 12-03-2023 08:41-0400 Body surface area Derived from formula 2.06 m2 Shante Kurtz RN [employer].; [employer]. 12-03-2023 08:41-0400 Body weight 82.56 kg Shante Kurtz RN [employer].; [employer]. 12-03-2023 08:41-0400 Diastolic blood pressure 78 mm[Hg] Shante Kurtz RN [place] [employer].; [facility]. Comment on above: Patient Position: Si tting; Cuff Location: Left Arm; Cuff Size: Standard 12-03-2023 08:41-0400 Heart rate 97 /min Shante Kurtz RN [facility].; [place] [employer] [facility]. Comment on above: Pattern: Regular 12-03-2023 08:41-0400 Systolic blood pressure 131 mm[Hg] Shante Kurtz RN [facility].; [facility]. Comment on above: Patient Position: Si tting; Cuff Location: Left Arm; Cuff Size: Standard 09-14-2023 14:03-0500 Body height 184.15 cm Carin Kang MA [facility].; [facility] 09-14-2023 14:03-0500 Body mass index (BMI) [Ratio] 25.15 kg/m2 Carin Kang MA [facility].; [facility]. 09-14-2023 14:03-0500 Body surface area Derived from formula 2.09 m2 Carin Kang MA [facility].; [place] [employer] [facility] 09-14-2023 14:03-0500 Body temperature 100.5 [degF] Carin Kang MA [facility].; [place] [employer]. Comment on above: Method: Tympanic 09-14-2023 14:03-0500 Body weight 85.28 kg Carin Kang MA [facility].; [facility]. 09-14-2023 14:03-0500 Diastolic blood pressure 76 mm[Hg] Carin Kang MA [facility].; [employer]. Comment on above: Patient Position: Si tting; Cuff Location: Left Arm; Cuff Size: Standard 09-14-2023 14:03-0500 Heart rate 103 /min Carin Kang MA [facility].; [place] [employer]. Comment on above: Pattern: Regular 09-14-2023 14:03-0500 Inhaled oxygen concentration 20 % Carin Kang MA [facility].; [place] [employer]. Comment on above: Room air 09-14-2023 14:03-0500 Inhaled oxygen concentration 21 % Carin Kang MA [facility].; [facility]. Comment on above: Room air 09-14-2023 14:03-0500 SaO2% (BldA) [Mass fraction] 96 % Carin Kang MA [facility].; [place] [employer]. 09-14-2023 14:03-0500 Systolic blood pressure 137 mm[Hg] Carin Kang MA [facility].; [place] [employer]. Comment on above: Patient Position: Si tting; Cuff Location: Left Arm; Cuff Size: Standard 06-01-2023 08:27-0400 Body height 184.15 cm Carin Kang MA [facility].; [place] [employer] [facility]. 06-01-2023 08:27-0400 Body mass index (BMI) [Ratio] 24.88 kg/m2 Carin Kang MA [facility].; [place] [employer] [facility]. 06-01-2023 08:27-0400 Body surface area Derived from formula 2.08 m2 Carin Kang MA [facility].; [facility]. 06-01-2023 08:27-0400 Body weight 84.37 kg Carin Kang MA [facility].; [place] [employer] [facility]. 06-01-2023 08:27-0400 Diastolic blood pressure 87 mm[Hg] Carni Kang MA [facility].; [place] [employer] [facility]. Comment on above: Patient Position: Si tting; Cuff Location: Left Arm; Cuff Size: Standard 06-01-2023 08:27-0400 Heart rate 77 /min Carin Kang MA [facility].; [employer]. Comment on above: Pattern: Regular 06-01-2023 08:27-0400 Systolic blood pressure 125 mm[Hg] Carin Kang MA [facility].; [employer]. Comment on above: Patient Position: Si tting; Cuff Location: Left Arm; Cuff Size: Standard 09-12-2022 08:17-0500 Body height 184.15 cm Caroline Donnelly LPN [facility], [facility].; [facility], [facility]. 09-12-2022 08:17-0500 Body mass index (BMI) [Ratio] 23.68 kg/m2 Caroline Donnelly [facility], [facility].; [place] [employer] [facility] 09-12-2022 08:17-0500 Body surface area Derived from formula 2.03 m2 Caroline Donnelly VP [employer] [facility], [facility].; [place] [employer] [facility] 09-12-2022 08:17-0500 Body temperature 98.6 [degF] Caroline Donnelly [facility], [facility].; [employer] [facility], [email or web address]. Comment on above: Method: Tympanic 09-12-2022 08:17-0500 Body weight 80.29 kg Caroline Donnelly VP [employer] [facility], [facility].; [employer] [facility], [email or web address]. 09-12-2022 08:17-0500 Diastolic blood pressure 92 mm[Hg] Caroline Donnelly [facility], [facility].; [employer] [facility], [email or web address]. Comment on above: Patient Position: Si tting; Cuff Location: Left Arm; Cuff Size: Large 09-12-2022 08:17-0500 Heart rate 85 /min Caroline Donnelly VP [employer] [facility], [facility].; [employer] [facility] Comment on above: Pattern: Regular 09-12-2022 08:17-0500 Systolic blood pressure 142 mm[Hg] Caroline Donnelly VP [employer] [facility], [facility].; [employer] [facility], [email or web address]. Comment on above: Patient Position: Si tting; Cuff Location: Left Arm; Cuff Size: Large 08-23-2022 14:53-0500 Body height 184.15 cm Carin Kang MA [facility], [facility].; [facility], [email or web address]. 08-23-2022 14:53-0500 Body mass index (BMI) [Ratio] 24.08 kg/m2 Carin Kang MA [facility], [facility].; [place] [employer], [email or web address] 08-23-2022 14:53-0500 Body surface area Derived from formula 2.05 m2 Carin Kang MA [facility].; [place] [employer] [facility]. 08-23-2022 14:53-0500 Body temperature 97.3 [degF] Carin Kang MA [facility].; [place] [employer] [facility]. Comment on above: Method: Tympanic 08-23-2022 14:53-0500 Body weight 81.65 kg Carin Kang MA [facility].; [place] [employer] [facility]. 08-23-2022 14:53-0500 Diastolic blood pressure 79 mm[Hg] Carin Kang MA [facility].; [employer]. Comment on above: Patient Position: Si tting; Cuff Location: Left Arm; Cuff Size: Standard 08-23-2022 14:53-0500 Heart rate 84 /min Carin Kang MA [facility].; [employer] Comment on above: Pattern: Regular 08-23-2022 14:53-0500 Systolic blood pressure 135 mm[Hg] Carin Kang MA [facility].; [employer]. Comment on above: Patient Position: Si tting; Cuff Location: Left Arm; Cuff Size: Standard 05-26-2022 12:23-0400 Body height 184.15 cm Shante Kurtz RN [facility].; [place] [employer]. 05-26-2022 12:23-0400 Body mass index (BMI) [Ratio] 23.14 kg/m2 Shante Kurtz RN [facility].; [place] [employer]. 05-26-2022 12:23-0400 Body surface area Derived from formula 2.01 m2 Shante Kurtz RN [place] [employer] [facility].; [employer]. 05-26-2022 12:23-0400 Body weight 78.47 kg Shante Kurtz RN [place] [employer] [facility].; [employer]. 05-26-2022 12:23-0400 Diastolic blood pressure 71 mm[Hg] Shante Kurtz RN [facility].; [employer]. Comment on above: Patient Position: Si tting; Cuff Location: Right Arm; Cuff Size: Standard 05-26-2022 12:23-0400 Heart rate 77 /min Shante Kurtz RN [employer] [facility].; [employer]. Comment on above: Pattern: Regular 05-26-2022 12:23-0400 Systolic blood pressure 111 mm[Hg] Shante Kurtz RN [facility] [employer]. Comment on above: Patient Position: Si tting; Cuff Location: Right Arm; Cuff Size: Standard 03-06-2022 14:59-0400 Body height 184.15 cm Shante Kurtz RN [employer].; [employer]. 03-06-2022 14:59-0400 Body mass index (BMI) [Ratio] 22.74 kg/m2 Shante Kurtz RN [employer].; [employer] [employer]rapeutics. 03-06-2022 14:59-0400 Body surface area Derived from formula 2 m2 Shante Kurtz RN [employer]. 03-06-2022 14:59-0400 Body temperature 98.5 [degF] Shante Kurtz RN [employer]. Comment on above: Method: Tympanic 03-06-2022 14:59-0400 Body weight 77.11 kg Shante Kurtz RN [employer]. 03-06-2022 14:59-0400 Diastolic blood pressure 72 mm[Hg] Shante Kurtz RN [employer]. Comment on above: Patient Position: Si tting; Cuff Location: Right Arm; Cuff Size: Standard 03-06-2022 14:59-0400 Heart rate 84 /min Shante Kurtz RN [employer]. Comment on above: Pattern: Regular 03-06-2022 14:59-0400 Inhaled oxygen concentration 20 % Shante Kurtz RN [employer]. Comment on above: Room air 03-06-2022 14:59-0400 Inhaled oxygen concentration 21 % [facility] [employer]. Comment on above: Room air 03-06-2022 14:59-0400 SaO2% (BldA) [Mass fraction] 99 % Shante Kurtz RN [facility].; [employer]. 03-06-2022 14:59-0400 Systolic blood pressure 123 mm[Hg] Shante Kurtz RN [place] [facility].; [employer]. Comment on above: Patient Position: Si tting; Cuff Location: Right Arm; Cuff Size: Standard 10-28-2021 08:13-0400 Body height 184.15 cm Shante Kurtz RN [facility].; [employer]. 10-28-2021 08:13-0400 Body mass index (BMI) [Ratio] 23.01 kg/m2 Shante Kurtz RN [facility].; [employer]. 10-28-2021 08:13-0400 Body surface area Derived from formula 2.01 m2 Shante Kurtz RN [place] [facility].; [employer]. 10-28-2021 08:13-0400 Body weight 78.02 kg Shante Kurtz RN [place] [facility].; [employer]. 10-28-2021 08:13-0400 Diastolic blood pressure 71 mm[Hg] Shante Kurtz RN [place] [facility].; [employer]. Comment on above: Patient Position: Si tting; Cuff Location: Left Arm; Cuff Size: Standard 10-28-2021 08:13-0400 Heart rate 97 /min Shante Kurtz RN [employer] [facility].; [employer]. Comment on above: Pattern: Regular 10-28-2021 08:13-0400 Systolic blood pressure 119 mm[Hg] Shante Kurtz RN [employer]. Comment on above: Patient Position: Si tting; Cuff Location: Left Arm; Cuff Size: Standard 08-25-2021 08:54-0500 Body height 184.15 cm Nida Moss SETH [facility], [facility].; [place] [facility], [facility]. 08-25-2021 08:54-0500 Body mass index (BMI) [Ratio] 22.07 kg/m2 Nida Sandovalugg VP [employer]OMER [employer] [facility] [place] [facility], [facility]. 08-25-2021 08:54-0500 Body surface area Derived from formula 1.97 m2 Nida Sandovalrenetta ANN [facility], [facility].; [place] [facility], [facility]. 08-25-2021 08:54-0500 Body temperature 100.4 [degF] Nida Sandovalrenetta [facility], [facility].; [employer], [email or web address]. Comment on above: Method: Tympanic 08-25-2021 08:54-0500 Body weight 74.84 kg Nida Sandovalrenetta ANN [place] [facility], [facility].; [employer], [facility]. 08-25-2021 08:54-0500 Diastolic blood pressure 81 mm[Hg] Nida Moss VP CUSTOMER SERVICE [place] [facility], [facility].; [employer], [email or web address]. Comment on above: Patient Position: Si tting; Cuff Location: Left Arm; Cuff Size: Standard 08-25-2021 08:54-0500 Heart rate 118 /min Nida Sandovalrenetta ANN [facility] [employer], [email or web address]. Comment on above: Pattern: Regular 08-25-2021 08:54-0500 Inhaled oxygen concentration 20 % Nida Loriugg VP CUSTOMER SERVICE [place] [facility], [facility].; [employer], [email or web address]. Comment on above: Room air 08-25-2021 08:54-0500 Inhaled oxygen concentration 21 % Nida Loriugg VP [employer]USTOMER SERVICE [place] [facility], [facility].; [employer], [email or web address]. Comment on above: Room air 08-25-2021 08:54-0500 SaO2% (BldA) [Mass fraction] 95 % Nidaanat Sandovalrenetta [facility], [facility].; [employer], [email or web address]. 08-25-2021 08:54-0500 Systolic blood pressure 138 mm[Hg] Nida Moss [facility], [facility].; [place] [facility], [email or web address]. Comment on above: Patient Position: Si tting; Cuff Location: Left Arm; Cuff Size: Standard 07-11-2021 08:18-0500 Body height 184.15 cm Caroline Donnelly [facility] [place] [facility], [facility]. 07-11-2021 08:18-0500 Body mass index (BMI) [Ratio] 22.74 kg/m2 Caroline Donnelly [facility], [facility].; [place] [facility], [facility]. 07-11-2021 08:18-0500 Body surface area Derived from formula 2 m2 Audrey Cony [facility], [facility].; [place] [facility] [facility], [facility]. 07-11-2021 08:18-0500 Body weight 77.11 kg Caroline Donnelly [facility], [facility].; [place] [facility], [facility]. 07-11-2021 08:18-0500 Diastolic blood pressure 98 mm[Hg] Caroline Donnelly [facility], [facility].; [employer] [facility], [email or web address]. Comment on above: Patient Position: Si tting; Cuff Location: Left Arm; Cuff Size: Large 07-11-2021 08:18-0500 Heart rate 99 /min Caroline Donnelly [facility], [facility].; [place] [facility], [email or web address]. Comment on above: Pattern: Regular 07-11-2021 08:18-0500 Systolic blood pressure 147 mm[Hg] Caroline Donnelly [facility], [facility].; [place] [facility] [facility], [email or web address]. Comment on above: Patient Position: Si tting; Cuff Location: Left Arm; Cuff Size: Large 01-21-2021 13:08-0400 Body height 184.15 cm [facility] Work Phone: [facility], [facility].; [place] [facility] [facility], [email or web address]. 01-21-2021 13:08-0400 Body mass index (BMI) [Ratio] 22.47 kg/m2 [facility] Work Phone: [facility], [facility].; [employer]. 01-21-2021 13:08-0400 Body surface area Derived from formula 1.99 m2 Vernell Micah VP CUSTOMER SERVICE Work Phone: [place] [employer]. 01-21-2021 13:08-0400 Body weight 76.2 kg Vernellfaisal Northy VP CUSTOMER SERVICE Work Phone: [employer].; [employer]. 01-21-2021 13:08-0400 Diastolic blood pressure 87 mm[Hg] Vernell Micah VP CUSTOMER SERVICE Work Phone: [employer].; [employer]. Comment on above: Patient Position: Si tting; Cuff Location: Left Arm; Cuff Size: Standard 01-21-2021 13:08-0400 Heart rate 85 /min Vernell Obrien VP CUSTOMER SERVICE Work Phone: [employer]; [employer]. Comment on above: Pattern: Regular 01-21-2021 13:08-0400 Systolic blood pressure 127 mm[Hg] Vernell Micah VP CUSTOMER SERVICE Work Phone: [employer].; [employer]. Comment on above: Patient Position: Si tting; Cuff Location: Left Arm; Cuff Size: Standard 09-09-2020 16:08-0500 Body height 184.15 cm Shante Kurtz RN [employer].; [employer]. 09-09-2020 16:08-0500 Body mass index (BMI) [Ratio] 22.2 kg/m2 Shante Kurtz RN [employer].; [employer]. 09-09-2020 16:08-0500 Body surface area Derived from formula 1.98 m2 Shante Kurtz RN [employer].; [employer]. 09-09-2020 16:08-0500 Body weight 75.3 kg Shante Kurtz RN [employer].; [employer]. 09-09-2020 16:08-0500 Diastolic blood pressure 83 mm[Hg] Shante Kurtz RN [employer].; [employer]. Comment on above: Patient Position: Si tting; Cuff Location: Left Arm; Cuff Size: Standard 09-09-2020 16:08-0500 Heart rate 99 /min Shante Kurtz RN [facility] [employer].; [employer]. Comment on above: Pattern: Regular 09-09-2020 16:08-0500 Systolic blood pressure 142 mm[Hg] Shante Kurtz RN [employer].; [employer]. Comment on above: Patient Position: Si tting; Cuff Location: Left Arm; Cuff Size: Standard 2020 09:11-0500 Body height 184.15 cm hSante Kurtz RN [employer].; [employer]. 2020 09:11-0500 Body mass index (BMI) [Ratio] 23.01 kg/m2 Shante Kurtz RN [employer] [facility].; [employer], [email or web address]. 2020 09:110500 Body surface area Derived from formula 2.01 m2 Shante Kurtz RN [employer].; [employer], [email or web address]. 2020 09:110500 Body weight 78.02 kg Shante Kurtz RN [employer].; [employer], [email or web address]. 2020 09:11-0500 Diastolic blood pressure 74 mm[Hg] Shante Kurtz RN [employer].; [employer]. Comment on above: Patient Position: Si tting; Cuff Location: Right Arm; Cuff Size: Standard 2020 09:11-0500 Heart rate 83 /min Shante Kurtz RN [employer].; [employer]. Comment on above: Pattern: Regular 2020 09:11-0500 Systolic blood pressure 128 mm[Hg] Shante Kurtz RN [employer].; [employer]. Comment on above: Patient Position: Si tting; Cuff Location: Right Arm; Cuff Size: Standard 10-08-2019 14:08-0500 Body height 184.15 cm Caroline Donnelly VP CUSTOMER SERVICE [facility] [employer] [facility] 10-08-2019 14:08-0500 Body mass index (BMI) [Ratio] 22.07 kg/m2 Caroline Donnelly VP CUSTOMER SERVICE [facility] [employer] [facility] 10-08-2019 14:08-0500 Body surface area Derived from formula 1.97 m2 Caroline Donnelly [facility].; [employer] [facility] 10-08-2019 14:08-0500 Body weight 74.84 kg Caroline Donnelly [facility].; [employer] [facility] 10-08-2019 14:08-0500 Diastolic blood pressure 73 mm[Hg] Caroline Donnelly VP CUSTOMER SERVICE [facility] [employer] Comment on above: Patient Position: Si tting; Cuff Location: Left Arm; Cuff Size: Large 10-08-2019 14:08-0500 Heart rate 102 /min Caroline Donnelly [facility].; [employer] [facility] Comment on above: Pattern: Regular 10-08-2019 14:08-0500 Systolic blood pressure 119 mm[Hg] Caroline Donnelly VP CUSTOMER SERVICE [facility] [employer] Comment on above: Patient Position: Si tting; Cuff Location: Left Arm; Cuff Size: Large 09-22-2019 14:34-0500 Body height 184.15 cm Caroline Donnelly VP CUSTOMER SERVICE [facility] [employer] [facility] 09-22-2019 14:34-0500 Body mass index (BMI) [Ratio] 22.07 kg/m2 Caroline Donnelly [facility].; [place] [facility] [facility], [facility] 09-22-2019 14:34-0500 Body surface area Derived from formula 1.97 m2 Caroline Donnelly [facility].; [employer] 09-22-2019 14:34-0500 Body weight 74.84 kg Caroline Donnelly VP CUSTOMER SERVICE [facility].; [employer]. 09-22-2019 14:34-0500 Diastolic blood pressure 89 mm[Hg] Caroline Donnelly [facility] [employer]. Comment on above: Patient Position: Si tting; Cuff Location: Left Arm; Cuff Size: Large 09-22-2019 14:34-0500 Heart rate 116 /min Caroline Donnelly [facility].; [employer]. Comment on above: Pattern: Regular 09-22-2019 14:34-0500 Systolic blood pressure 126 mm[Hg] Audrey Cony [facility] [facility].; [employer], [email or web address]. Comment on above: Patient Position: Si tting; Cuff Location: Left Arm; Cuff Size: Large 07-25-2019 11:55-0500 Body height 184.15 cm Shante Kurtz RN [place] [facility] [facility], [email or web address].; [employer]. 07-25-2019 11:55-0500 Body mass index (BMI) [Ratio] 22.07 kg/m2 Shanet Kurtz RN [place] [facility] [facility], [email or web address].; [employer], [email or web address]. 07-25-2019 11:55-0500 Body surface area Derived from formula 1.97 m2 Shante Kurtz RN [place] [facility] [facility], [email or web address].; [employer], [email or web address]. 07-25-2019 11:55-0500 Body temperature 98 [degF] Shante Kurtz RN [place] [facility] [facility], [email or web address].; [employer]. Comment on above: Method: Tympanic 07-25-2019 11:55-0500 Body weight 74.84 kg Shante Kurtz RN [place] [facility] [facility], [email or web address].; [employer]. 07-25-2019 11:55-0500 Diastolic blood pressure 70 mm[Hg] Shante Kurtz RN [place] [facility] [facility], [email or web address].; [employer]. Comment on above: Patient Position: Si tting; Cuff Location: Left Arm; Cuff Size: Standard 07-25-2019 11:55-0500 Heart rate 104 /min Shante Kurtz RN [employer].; [employer]. Comment on above: Pattern: Regular 07-25-2019 11:55-0500 Systolic blood pressure 119 mm[Hg] Shante Kurtz RN [employer].; [employer]. Comment on above: Patient Position: Si tting; Cuff Location: Left Arm; Cuff Size: Standard 02-24-2019 11:10-0400 Body height 184.15 cm Shante Kurtz RN [employer].; [employer]. 02-24-2019 11:10-0400 Body mass index (BMI) [Ratio] 22.2 kg/m2 Shante Kurtz RN [employer].; [employer]. 02-24-2019 11:10-0400 Body surface area Derived from formula 1.98 m2 Shante Kurtz RN [employer].; [employer]. 02-24-2019 11:10-0400 Body weight 75.3 kg Shante Kurtz RN [employer].; [employer]. 02-24-2019 11:10-0400 Diastolic blood pressure 88 mm[Hg] Shante Kurtz RN [employer].; [employer]. Comment on above: Patient Position: Si tting; Cuff Location: Left Arm; Cuff Size: Standard 02-24-2019 11:10-0400 Heart rate 114 /min Shante Kurtz RN [employer].; [employer]. Comment on above: Pattern: Regular 02-24-2019 11:10-0400 Systolic blood pressure 147 mm[Hg] Shante Kurtz RN [employer].; [employer]. Comment on above: Patient Position: Si tting; Cuff Location: Left Arm; Cuff Size: Standard 08-14-2018 13:44-0500 Body height 184.15 cm [facility] [employer].; [employer]. 08-14-2018 13:44-0500 Body mass index (BMI) [Ratio] 21 kg/m2 [facility].; [employer], [email or web address]. 08-14-2018 13:44-0500 Body surface area Derived from formula 1.93 m2 Audrey Cony [facility], [facility].; [employer] 08-14-2018 13:44-0500 Body weight 71.22 kg [facility].; [employer], [email or web address]. 08-14-2018 13:44-0500 Diastolic blood pressure 76 mm[Hg] Caroline Donnelly [facility] [facility].; [employer]. Comment on above: Patient Position: Si tting; Cuff Location: Left Arm; Cuff Size: Large 08-14-2018 13:44-0500 Heart rate 111 /min Audrey Cony [facility].; [employer]. Comment on above: Pattern: Regular 08-14-2018 13:44-0500 Systolic blood pressure 143 mm[Hg] Audrey Cony [facility] [facility].; [employer]. Comment on above: Patient Position: Si tting; Cuff Location: Left Arm; Cuff Size: Large 05-17-2018 10:110400 Body height 184.15 cm Shante Kurtz RN [place] [facility] [facility], [email or web address].; [employer]. 05-17-2018 10:11-0400 Body mass index (BMI) [Ratio] 20.47 kg/m2 Shante Kurtz RN [place] [facility] [facility], [email or web address].; [employer]. 05-17-2018 10:110400 Body surface area Derived from formula 1.91 m2 Shante Kurtz RN [employer], [email or web address].; [employer]. 05-17-2018 10:11040 Body temperature 98.7 [degF] Shante Kurtz RN [employer]. Comment on above: Method: Tympanic 05-17-2018 10:11040 Body weight 69.4 kg Shante Kurtz RN [place] [facility] [facility], [email or web address].; [employer]. 05-17-2018 10:11-0400 Diastolic blood pressure 81 mm[Hg] Shante Kurtz RN [facility] [employer]. Comment on above: Patient Position: Si tting; Cuff Location: Left Arm; Cuff Size: Standard 05-17-2018 10:11-0400 Heart rate 80 /min Shante Kurtz RN [facility] [employer]. Comment on above: Pattern: Regular 05-17-2018 10:11-0400 Systolic blood pressure 131 mm[Hg] Shante Kurtz RN [facility] [employer]. Comment on above: Patient Position: Si tting; Cuff Location: Left Arm; Cuff Size: Standard 12-27-2016 14:07-0400 Body height 184.15 cm Caroline Tamayo [place] VP CUSTOMER SERVICE [facility] [employer]. 12-27-2016 14:07-0400 Body mass index (BMI) [Ratio] 20.33 kg/m2 [facility] Presquille [facility].; [employer], [email or web address]. 12-27-2016 14:07-0400 Body surface area Derived from formula 1.91 m2 [facility] Cony VP CUSTOMER SERVICE [facility] [employer], [email or web address]. 12-27-2016 14:07-0400 Body temperature 98.5 [degF] [facility] Cony [facility].; [employer]. Comment on above: Method: Tympanic 12-27-2016 14:07-0400 Body weight 68.95 kg AudreyBelkis Donnelly LPN [facility] [employer]. 12-27-2016 14:07-0400 Inhaled oxygen concentration 20 % [facility] Cony VP CUSTOMER SERVICE [facility] [employer]. Comment on above: Room air 12-27-2016 14:07-0400 Inhaled oxygen concentration 21 % Audreyirving Donnelly LPN [facility] [employer]. Comment on above: Room air 12-27-2016 14:07-0400 SaO2% (BldA) [Mass fraction] 97 % Caroline Donnelly LPN [facility] [employer], [email or web address]. 05-10-2016 13:31-0400 Body height 182.88 cm Caroline Donnelly LPN [facility] [employer], [email or web address]. 05-10-2016 13:31-0400 Body mass index (BMI) [Percentile] Per age and sex 9 % Caroline Donnelly LPN [facility] [employer], [email or web address]. 05-10-2016 13:31-0400 Body mass index (BMI) [Ratio] 19.67 kg/m2 Caroline Donnelly [facility].; [employer], [email or web address]. 05-10-2016 13:31-0400 Body surface area Derived from formula 1.86 m2 Caroline Donnelly VP CUSTOMER SERVICE [facility] [employer], [email or web address]. 05-10-2016 13:31-0400 Body weight 65.77 kg Caroline Donnelly VP CUSTOMER SERVICE [facility], [email or web address].; [employer]. 05-10-2016 13:31-0400 Diastolic blood pressure 93 mm[Hg] Caroline Donnelly VP CUSTOMER SERVICE [facility], [email or web address].; [employer]. Comment on above: Patient Position: Si tting; Cuff Location: Left Arm; Cuff Size: Large 05-10-2016 13:31-0400 Heart rate 98 /min Caroline Donnelly VP CUSTOMER SERVICE [facility], [email or web address].; [employer]. Comment on above: Pattern: Regular 05-10-2016 13:31-0400 Systolic blood pressure 157 mm[Hg] Caroline Donnelly LPN [employer] [facility], [email or web address].; [employer]. Comment on above: Patient Position: Si tting; Cuff Location: Left Arm; Cuff Size: Large 04-28-2015 08:51-0400 Body height 184.15 cm Caroline Donnelly LPN [facility] [employer]. 04-28-2015 08:51-0400 Body mass index (BMI) [Percentile] Per age and sex 6 % Caroline Donnelly LPN [employer] [facility].; [employer] 04-28-2015 08:51-0400 Body mass index (BMI) [Ratio] 18.73 kg/m2 Caroline Donnelly [facility].; [employer] 04-28-2015 08:51-0400 Body surface area Derived from formula 1.84 m2 [facility].; [employer] 04-28-2015 08:51-0400 Body temperature 96.5 [degF] Caroline Donnelly [facility].; [employer], [email or web address]. Comment on above: Method: Tympanic 04-28-2015 08:51-0400 Body weight 63.5 kg Caroline Donnelly [facility].; [employer] 04-21-2014 13:15-0400 Body height 180.34 cm Lizet Espinosa [facility] [employer] 04-21-2014 13:15-0400 Body mass index (BMI) [Percentile] Per age and sex 24 % Lizet Espinosa [facility] [employer] 04-21-2014 13:15-0400 Body mass index (BMI) [Ratio] 19.94 kg/m2 Lizet Espinosa [facility] [employer] 04-21-2014 13:15-0400 Body surface area Derived from formula 1.83 m2 Lizet Espinosa [facility].; [employer] 04-21-2014 13:15-0400 Body temperature 98.1 [degF] Lizet Espinosa [facility] [employer], [email or web address]. 04-21-2014 13:15-0400 Body weight 64.86 kg Lizet Espinosa [facility] [employer] 07-11-2012 16:19-0500 Body height 178.44 cm Helena Garcia [facility].; [employer]. 07-11-2012 16:19-0500 Body mass index (BMI) [Percentile] Per age and sex 32 % Helena Garcia [facility] [employer].; [employer] 07-11-2012 16:19-0500 Body mass index (BMI) [Ratio] 19.39 kg/m2 Helena Hernadezmarquisgaviota [facility] [employer] [facility].; [employer] 07-11-2012 16:19-0500 Body surface area Derived from formula 1.78 m2 Helena Hernadezanibal [facility] [facility], [facility].; [employer], [email or web address]. 07-11-2012 16:19-0500 Body temperature 99 [degF] Helena Garcia [facility] [employer] [facility], [facility].; [employer], [email or web address]. Comment on above: Method: Tympanic 07-11-2012 16:19-0500 Body weight 61.75 kg Helena Hernadezanibal [facility] [employer] [facility].; [employer], [email or web address]. 06-12-2012 10:43-0400 Body height 177.8 cm Caroline Donnelly [facility] [employer] [facility].; [employer], [email or web address]. 06-12-2012 10:43-0400 Body mass index (BMI) [Percentile] Per age and sex 42 % Caroline Donnelly VP CUSTOMER SERVICE [place] [facility] [facility].; [employer], [email or web address]. 06-12-2012 10:43-0400 Body mass index (BMI) [Ratio] 19.94 kg/m2 Caroline Donnelly VP CUSTOMER SERVICE [facility] [employer], [email or web address]. 06-12-2012 10:43-0400 Body surface area Derived from formula 1.79 m2 Caroline Donnelly VP CUSTOMER SERVICE [place] [facility], [facility].; [employer], [email or web address]. 06-12-2012 10:43-0400 Body temperature 98.5 [degF] Caroline Donnelly [facility], [facility].; [employer], [email or web address]. Comment on above: Method: Tympanic 06-12-2012 10:43-0400 Body weight 63.05 kg Caroline Donnelly [facility] [employer] [facility], [facility].; [employer]. 12-15-2011 11:170400 Body height 173.99 cm Lizet Espinosa VP CUSTOMER SERVICE [facility], [facility].; [employer]. 12-15-2011 11:17-0400 Body mass index (BMI) [Percentile] Per age and sex 19 % Lizet Espinosa VP CUSTOMER SERVICE [facility], [facility].; [employer], [email or web address]. 12-15-2011 11:17-0400 Body mass index (BMI) [Ratio] 18.13 kg/m2 Lizet Espinosa [facility], [facility].; [employer]. 12-15-2011 11:170400 Body surface area Derived from formula 1.66 m2 Lizet Espinosa [facility] [employer] [facility], [facility].; [employer]. 12-15-2011 11:170400 Body temperature 96.1 [degF] Lizet Espinosa [facility] [employer] [facility], [facility].; [employer], [email or web address]. 12-15-2011 11:170400 Body weight 54.89 kg Lizet Espinosa VP CUSTOMER SERVICE [place] [employer] [facility], [facility].; [employer]. 11-30-2011 10:030400 Body height 173.99 cm Mayte Haley RN [place] [employer] [facility], [facility].; [employer]. 11-30-2011 10:030400 Body mass index (BMI) [Percentile] Per age and sex 17 % Mayte Haley RN [place] [employer] [facility], [facility].; [employer]. 11-30-2011 10:030400 Body mass index (BMI) [Ratio] 17.95 kg/m2 Mayte Haley RN [place] [facility].; [employer]. 11-30-2011 10:030400 Body surface area Derived from formula 1.65 m2 Mayte Haley RN [facility].; [employer]. 11-30-2011 10:030400 Body temperature 97.2 [degF] Mayte Haley RN [employer].; [employer]. Comment on above: Method: Tympanic 11-30-2011 10:03040 Body weight 54.34 kg Mayte Haley RN [facility], [facility].; [employer] [facility]. 10-23-2011 14:29-0400 Body height 172.72 cm Lizet Espinosa LPN [facility], [facility].; [employer]. 10-23-2011 14:29-0400 Body mass index (BMI) [Percentile] Per age and sex 24 % Lizet Espinosa VP CUSTOMER SERVICE [facility].; [employer]. 10-23-2011 14:29-0400 Body mass index (BMI) [Ratio] 18.4 kg/m2 Lizet Espinosa LPN [facility], [facility].; [employer]. 10-23-2011 14:29-0400 Body surface area Derived from formula 1.65 m2 Lizet Espinosa VP CUSTOMER SERVICE [place] [employer] [facility].; [employer]. 10-23-2011 14:29-0400 Body temperature 98.1 [degF] Lizet Espinosa VP CUSTOMER SERVICE [place] [employer] [facility], [facility].; [employer]. 10-23-2011 14:29-0400 Body weight 54.89 kg Lizet Espinosa LPN [place] [employer] [facility], [facility].; [employer]. 10-13-2011 14:56-0500 Body height 172.72 cm Helena Garcia LPN [place] [employer] [facility], [facility].; [employer]. 10-13-2011 14:56-0500 Body mass index (BMI) [Percentile] Per age and sex 18 % Helena Garcia LPN [place] [facility].; [employer]. 10-13-2011 14:56-0500 Body mass index (BMI) [Ratio] 17.94 kg/m2 Helena Garcia LPN [place] [employer] [facility], [facility].; [employer]. 10-13-2011 14:56-0500 Body surface area Derived from formula 1.63 m2 Helena Garcia LPN [place] [employer] [facility], [facility].; [employer]. 10-13-2011 14:56-0500 Body weight 53.52 kg Helena Garcia LPN [place] [employer] [facility] [employer]. 10-13-2011 14:56-0500 Diastolic blood pressure 72 mm[Hg] Helena Garcia [facility], [facility].; [place] [employer] [facility], [email or web address]. Comment on above: Patient Position: Si tting; Cuff Location: Left Arm; Cuff Size: Standard 10-13-2011 14:56-0500 Heart rate 89 /min Helena Garcia [facility] [place] [facility]. Comment on above: Pattern: Regular 10-13-2011 14:56-0500 Systolic blood pressure 111 mm[Hg] Helena Garcia [facility], [facility] [place] [employer], [email or web address]. Comment on above: Patient Position: Si tting; Cuff Location: Left Arm; Cuff Size: Standard 11-14-2010 15:36-0400 Body height 161.29 cm Caroline Donnelly [facility], [facility].; [place] [facility]. 11-14-2010 15:36-0400 Body mass index (BMI) [Percentile] Per age and sex 16 % Audrey Stuckey [facility], [facility].; [place] [employer] [facility], [email or web address]. 11-14-2010 15:36-0400 Body mass index (BMI) [Ratio] 17.26 kg/m2 [facility] Cony [facility], [facility].; [place] [employer] [facility], [email or web address]. 11-14-2010 15:36-0400 Body surface area Derived from formula 1.44 m2 [facility] Cony [facility], [facility].; [place] [employer] [facility], [email or web address]. 11-14-2010 15:36-0400 Body temperature 97.4 [degF] Caroline Donnelly [facility], [facility].; [employer]. Comment on above: Method: Tympanic 11-14-2010 15:36-0400 Body weight 44.91 kg Audrey Cony [facility], [facility].; [place] [employer] [facility], [email or web address]. 10-17-2010 14:19-0500 Body height 161.29 cm Marco Antonio Monreal PA-C Work Phone: [facility].; [place] [facility]. 10-17-2010 14:19-0500 Body mass index (BMI) [Percentile] Per age and sex 16 % Marco Antonio Monreal PA-C Work Phone: [employer].; [employer]. 10-17-2010 14:19-0500 Body mass index (BMI) [Ratio] 17.19 kg/m2 Marco Antonio Monreal PA-C Work Phone: [employer].; [employer]. 10-17-2010 14:19-0500 Body surface area Derived from formula 1.44 m2 Marco Antonio Monreal PA-C Work Phone: [employer]; [employer]. 10-17-2010 14:19-0500 Body temperature 97.5 [degF] Marco Antonio Monreal PA-C Work Phone: [employer]; [employer]. Comment on above: Method: Tympanic 10-17-2010 14:19-0500 Body weight 44.72 kg Marco Antonio Monreal PA-C Work Phone: [employer].; [employer]. 10-12-2010 09:24-0500 Body height 162.56 cm Caroline Donnelly VP CUSTOMER SERVICE [employer].; [employer]. 10-12-2010 09:24-0500 Body mass index (BMI) [Percentile] Per age and sex 16 % Caroline Donnelly VP CUSTOMER SERVICE [employer].; [employer]. 10-12-2010 09:24-0500 Body mass index (BMI) [Ratio] 17.16 kg/m2 Caroline Donnelly VP CUSTOMER SERVICE [employer].; [employer]. 10-12-2010 09:24-0500 Body surface area Derived from formula 1.46 m2 Caroline Donnelly VP CUSTOMER SERVICE [employer].; [employer]. 10-12-2010 09:24-0500 Body temperature 97.4 [degF] Caroline Donnelly VP CUSTOMER SERVICE [employer].; [facility] Comment on above: Method: Tympanic 10-12-2010 09:24-0500 Body weight 45.36 kg Caroline Donnelly S[facility] [employer]. 09-26-2010 13:36-0500 Body height 162.56 cm Marco Antonio Monreal PA-C Work Phone: [employer]; [employer]. 09-26-2010 13:36-0500 Body mass index (BMI) [Percentile] Per age and sex 16 % Marco Antonio Monreal PA-C Work Phone: [employer]; [employer]. 09-26-2010 13:36-0500 Body mass index (BMI) [Ratio] 17.16 kg/m2 Marco Antonio Monreal PA-C Work Phone: [employer]; [employer] 09-26-2010 13:36-0500 Body surface area Derived from formula 1.46 m2 Marco Antonio Monreal PA-C Work Phone: [employer]; [employer] 09-26-2010 13:36-0500 Body temperature 97.3 [degF] Marco Antonio Monreal PA-C Work Phone: [employer]; [employer]. Comment on above: Method: Tympanic 09-26-2010 13:36-0500 Body weight 45.36 kg Marco Antonio Monreal PA-C Work Phone: [employer]; [employer]. 08-18-2010 14:21-0500 Body height 158.12 cm Mayte Haley RN [employer].; [employer]. 08-18-2010 14:21-0500 Body mass index (BMI) [Percentile] Per age and sex 10 % Mayte Haley RN [employer].; [employer]. 08-18-2010 14:21-0500 Body mass index (BMI) [Ratio] 16.58 kg/m2 Mayte Haley RN [facility], [email or web address].; [employer]. 08-18-2010 14:21-0500 Body surface area Derived from formula 1.37 m2 Mayte Haley RN [place] [employer] [facility], [email or web address].; [employer]. 08-18-2010 14:21-0500 Body temperature 97.8 [degF] Mayte Haley RN [place] [employer] [facility], [email or web address].; [employer]. Comment on above: Method: Tympanic 08-18-2010 14:21-0500 Body weight 41.46 kg Mayte Haley RN [place]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 01-12-2020 Appointment Appointment [facility] Work Phone: Start: 01-12-2020 End: 01-12-2020 Mri spinal canal lumbar w/o & w/contr matrl MRI lumbar with and without contrast [facility] Work Phone: Start: 01-12-2020 End: 01-12-2020 Radex spine lumbosacral minimum 4 views XR LUMBAR 4VWS FLEX/EX [facility] Work Phone: Radiologic exam esophagus double contrast study [facility] [employer] [facility] Immunizations Immunization Date Immunization Notes Care Provider Vanessa can 07-28-2010 tetanus toxoid, redu brayan diphtheria toxoid, and acellular pertussis vaccine, adsorbed Marco Antonio Monreal PA-C Work Phone: [place] [facility] [facility] [employer] Comment on above: Site: Deltoid (Right )VIS Given: * Tetanus/Diphtheria/(Pertussis) (Td/Tdap) (06/30/08) 01-06-2003 diphtheria, tetanus toxoids and acellular pertussis vaccine Marco Antonio Monreal PA-C Work Phone: [facility] 01-06-2003 measles, mumps and rubella virus vaccine Marco Antonio Monreal PA-C Work Phone: [facility] 01-06-2003 poliovirus vaccine, inactivated Marco Antonio Monreal PA-C Work Phone: [facility] 09-29-1997 diphtheria, tetanus toxoids and acellular pertussis vaccine Marco Antonio Monreal PA-C Work Phone: [facility] 09-29-1997 haemophilus influenz ae type b vaccine, HbOC conjugate Marco Antonio Monreal PA-C Work Phone: [facility] 07-14-1997 hepatitis B vaccine, pediatric or pediatric/adolescent dosage Marco Antonio Monreal PA-C Work Phone: [facility] 07-14-1997 measles, mumps and rubella virus vaccine Marco Antonio Monreal PA-C Work Phone: [facility] 1996 diphtheria, tetanus toxoids and acellular pertussis vaccine Marco Antonio Monreal PA-C Work Phone: [facility] 1996 haemophilus influenz ae type b vaccine, HbOC conjugate Marco Antonio Monreal PA-C Work Phone: [facility] 1996 poliovirus vaccine, inactivated Marco Antonio Monreal PA-C Work Phone: [facility] 1995 diphtheria, tetanus toxoids and acellular pertussis vaccine Marco Antonio Monreal PA-C Work Phone: [facility] 1996 haemophilus influenz ae type b vaccine, HbOC conjugate Marco Antonio Monreal PA-C Work Phone: [facility] 1996 poliovirus vaccine, inactivated Marco Antonio Monreal PA-C Work Phone: [facility] 1996 hepatitis B vaccine, pediatric or pediatric/adolescent dosage Marco Antonio Monreal PA-C Work Phone: [facility] 1996 diphtheria, tetanus toxoids and acellular pertussis vaccine Marco Antonio Monreal PA-C Work Phone: [facility] 1996 poliovirus vaccine, inactivated Marco Antonio Monreal PA-C Work Phone: [facility] 1996 hepatitis B vaccine, pediatric or pediatric/adolescent dosage Marco Antonio Monreal PA-C Work Phone: [facility] haemophilus influenz ae type b vaccine, HbOC conjugate Marco Antonio Monreal PA-C Work Phone: [facility] Payers Date Payer Category Payer Self-pay [id number] 2024 Unknown [id number] 2024 Unknown 2024 Unknown [id number] 1996 Unknown [id number] 2.16.8 [id number] 1996 Unknown [id number] 2.16.8 [id number] 1996 Unknown [id number] 2.16.8 [id number] 1996 Unknown [id number] 2.16.8 [id number] 1996 Unknown [id number] 2.16.8 [id number] 1996 Unknown [id number] 2.16.8 [id number] 1996 Unknown [id number] 2.16.8 [id number] 1996 Unknown [id number] 2.16.8 [id number] 1996 Unknown [id number] 2.16.8 [id number] Private Health Insurance [id number] Unknown [id number] 2.16.8 [id number] Unknown [id number] 2.16.8 [id number] Unknown [id number] 2.16.8 [id number] Unknown [id number] 2.16.8 [id number] Unknown [id number] 2.16.8 [id number] Social History Date Type Detail Facility Start: 01-12-2020 End: 01-30-2020 Assertion Unknown if ever smoked [facility] Work Phone: Alcohol Use Alcohol Use [employer] [facility], [email or web address].; [employer] Tobacco Use: Tobacco Use: ; Former smoker. [employer] [facility] [employer] Tobacco/Smoke Exposure: Tobacco/Smoke Exposure: ; Family members smoke outdoors only. [employer].; [employer], [facility] Start: 1995 Male Dane veronica Family members smoke outdoors only [employer].; [employer] [facility] Work Phone: Start: 04-07-2025 Ex-smoker [facility] Tobacco Nicotine Use: Sal s used vapes flavored in the past, no nicotine.. Type: Cigars. [facility] Tobacco smoking status [facility] Start: 10-21-2022 Sex Male (finding) [facility] Start: 08-08-2021 Tobacco smoking status NHIS Never smoked tobacco (finding) [facility] NEGATED: Highlighted rowStart: 01-12-2020 End: 01-12-2020 Alcohol use Alcohol use [facility] Work Phone: Radiology Diagnostic study note 01-12-2025 Note Date & Type Note Facility 01-12-2025 Radiology Diagnostic study note [facility] Imaging Services [address] [place] [id number] Sinus/Facial Bone MR#: [id number] Acct: [id number] Name: ESTERKATHRYN Jr. Rep #: [id number] : 1995 M 29 From: Jolly Traore MD PCP: MARJORIE Tavera Status: REG CLI Study:Sinus/Facial Bone Date of Exam: Exam# [id number] Ordering Dr: Carlito Kearney MD PROCEDURE: SINUS/FACIAL BONE REASON FOR EXAM: SINUSITIS TECHNIQUE: CT of the paranasal sinuses without contrast. Coronal and Sagittal reconstruction series were provided. One or more dose reduction techniques were used (e.g., Automated exposure control, adjustment of the mA and/or kV according to patient size, use of iterative reconstruction technique). CTDIvol: 33.1 mGy DLP: 871 mGy-cm COMPARISON: None FINDINGS: Frontal: Unremarkable. The frontal recesses appear to be patent. Ethmoid: Trace opacification of an air cell in the right mid aspect of the ethmoid sinus (series 4, image 93). Sphenoid: Mucous retention cyst along the sphenoid septum. The sphenoethmoidal recesses appear slightly narrowed. Maxillary: There is communication of the maxillary sinuses with the middle meatus bilaterally, likely postoperative. Mild polypoid mucosal thickening at the floor of the left maxillary sinus, and at thelateral aspect of the right maxillary sinus. The ostiomeatal complexes are patent bilaterally. Turbinates: Right-sided nasal alanis bullosa. Nasal Septum: There is slight leftward deviation of the anterior nasal septum. Mastoids/Middle Ears: Unremarkable CT/Sinus/Facial Bone IMPRESSION: Minimal sinus disease as detailed above, without significant drainage pathway obstruction. Reading Location: [id number] CC: Dr. Carlito Kearney MD; MARJORIE Tavera ~ Tax Agent: Signed [facility] Clinical Note 11-20-2024 Note Date & Type Note Facility 11-20-2024 Note Date of Service November 20, 2024 Procedure Name Head Up Tilt Table Test Referring Provider Dr. Chow Consent Informed consent was obtained by nursing personnel Indication Palpitations, dizziness Location Noninvasive cardiac testing Technique This is a 29-year-old male who is noted ongoing symptoms for last several months. He reports his symptoms have worsened status post viral infections. Patient has been evaluated by general cardiology who referred the patient for head up tilt table test. Patient presented for head up tilt table test on November 20, 2024 in a fasting well-hydrated state. Presenting vital signs was a heart rate of 88 bpm normal sinus rhythm and a blood pressure of 120/70. Patient was then brought upright to a 70 degree position and monitored for the next 20 minutes with continuous EKG and routine blood pressure checks. Upon rising the patient's heart rate was 108 bpm sinus tachycardia with a blood pressure of 142/80. Patient felt that he was flushed and had blood pooling in his face. At the 4-minute johnathan patient's heart rate was 100 bpm normal sinus rhythm with a blood pressure of 118/88. Patient felt that his legs were shaky. At the 8-minute johnathan patient's heart was 91 bpm normal sinus rhythm with blood pressure of 124/86. At the 12-minute johnathan patient's heart was 96 bpm normal sinus rhythm with a blood pressure of 112/88. At the 16-minute johnathan patient's heart rate was 96 bpm normal sinus rhythm with a blood pressure of 122/78. At the 20-minute johnathan patient's heart rate was 117 bpm sinus tachycardia with a blood pressure of 126/86. Throughout testing; EKG send demonstrated sinus arrhythmia. Bilateral sinus carotid massage was negative for change in EKG or symptoms. Assessment and plan 1. Abnormal right tilt table test. Patient demonstrates orthostatic drop going from a standing position. Patient was educated on remain extremely well-hydrated increasing overall hydration, electrolytes and sodium. Patient could benefit from compression garments. Due to his ongoing symptoms patient should follow back up with primary care for lab work for heat and cold intolerance such as a thyroid panel. Patient will continue on current medical therapies. And follow back up with general cardiology and primary care as directed. Digitally Signed by XAVIER HUNTER on 11/20/2024 02:59 PM [facility] Clinical Note 05-31-2024 Note Date & Type Note Facility 05-31-2024 Note Discharge Instructio ns Discharge Summary [address] [address] [id number] 05/30/2024 Patient: ESTERKATHRYN DANIELSON JR Sex: Male : 1995 Age: 28y Thank you for visiting [facility]. You have been evaluated today by Carrie Gomez M.D. for the following condition(s): Principal Diagnosis Acute dyspnea. Anxiety reaction. INSTRUCTIONS No restrictions to activity. Return to work tomorrow. Warnings: GENERAL WARNINGS: Return or contact your physician immediately if your condition worsens or changes unexpectedly, if not improving as expected, or if other problems arise. SPECIFICALLY, return if you develop chest pain; or if there is worsening of the difficulty breathing. Follow-up: Follow-up for tests (Keep your PFT appointment as scheduled). Understanding of the discharge instructions verbalized by patient and family. You have been given the following additional information: Anxiety Reaction Patient Signature 1 of 5 Discharge Instructions Facility Pin Setter Date/Time General Instructions with ExitWriter [address] [address] [id number] 05/30/2024 Patient: KATHRYN NORMAN JR Sex: Male : 1995 Age: 28y Thank you for visiting [facility]. You have been evaluated today by Carrie Gomez M.D. for the following condition(s): Principal Diagnosis Acute dyspnea. Anxiety reaction. INSTRUCTIONS No restrictions to activity. Return to work tomorrow. Warnings: GENERAL WARNINGS: Return or contact your physician immediately if your condition worsens or changes unexpectedly, if not improving as expected, or if other problems arise. SPECIFICALLY, return if you develop chest pain; or if there is worsening of the difficulty breathing. Follow-up: Follow-up for tests (Keep your PFT appointment as scheduled). Understanding of the discharge instructions verbalized by patient and family. ADDITIONAL INFORMATION 2 of 5 Discharge Instructions Anxiety Reaction Anxiety is the feeling we all get when we think something bad might happen. It is a normal response to stress and normally causes only a mild reaction. When anxiety becomes more severe, it can interfere with daily life. In some cases, you may not even be aware of what you're anxious about. There may also be a genetic link. Or it may be a learned behavior in the home. Both psychological and physical triggers cause stress reaction. It's often a response to fear or emotional stress, real or imagined. This stress may come from home, family, work, or social relationships. During an anxiety reaction, you may feel: Helpless Nervous Depressed Grouchy Your body may show signs of anxiety in many ways. You may experience: Dry mouth Shakiness Dizziness Weakness Trouble breathing Breathing fast (hyperventilating) Chest pressure Sweating Headache Nausea Diarrhea Tiredness Inability to sleep Sexual problems Home care Try to find the sources of stress in your life. They may not be obvious. These may include: o Daily hassles of life (such as traffic jams, missed appointments, or car troubles) 3 of 5 Discharge Instructions o Major life changes, both good (new baby or job promotion) and bad (loss of job or loss of loved one) o Overload (feeling that you have too many responsibilities and can't take care of all of them at once) o Feeling helpless or feeling that your problems can't be solved Notice how your body reacts to stress. Learn to listen to your body signals. This will help you take action before the stress becomes severe. When you can, do something about the source of your stress. (Avoid hassles, limit the amount of change that happens in your life at one time, and take a break when you feel overloaded). Unfortunately, many stressful situations can't be avoided. It is necessary to learn how to better manage stress. There are many proven methods that will reduce your anxiety. These include simple things such as exercise, good nutrition, and adequate rest. Also, there are certain techniques that are helpful: o Relaxation o Breathing exercises o Visualization o Biofeedback o Meditation For more information about this, talk with your healthcare provider. Or check online or at your local library or bookstore. You'll find many books and audiobooks on this subject. Follow-up care If you feel your anxiety is not responding to self-help measures, call your healthcare provider or make an appointment with a counselor. You may need short-term psychological counseling or medicine to help you manage stress. Call 911 Call 911 if any of these happen: Trouble breathing Confusion Drowsiness or trouble waking up Fainting or loss of consciousness Ra (more content not included)... [facility] Evaluation + Plan note Note Date & Type Note Facility Evaluation + Plan note Future Appointments Appointment Date:12/16/2024 03:30:00 PM Scheduled Provider:DORENE CHOW Location:[facility] note Note Date & Type Note Facility Evaluation note No assessment information availa ble [facility] Work Phone: Evaluation note Note Date & Type Note Facility Evaluation note Diagnosis Onset Date Resolution Nausea acute April 08, 9:13am Other dysphagia acute April 082024 9:13am [facility] Work Phone: Hospital course Narrative Note Date & Type Note Facility Hospital course Narrative No data available for this section [facility] Hospital Discharge instructions Note Date & Type Note Facility Hospital Discharge instructions No data available for this section [facility] Reason for referral (narrative) Note Date & Type Note Facility Reason for referral (narrative) No reason for referral information available [facility] Work Phone: Chief Complaint Chief Complaint Description Start Date lower back pain Preliminary chief co mplaint data, not yet signed by the author as of Chief Complaint Description Start Date lower back pain Preliminary chief co mplaint data, not yet signed by the author as of Advance Directives No Advanced Directives Records Found Advance Directive Response Recorded Date/ Time Advance Directives No April 12:10pm Assessments There may be information available, but it has not been provided by the sender.There may be information available, but it has not been provided by the sender. Review of System There may be information available, but it has not been provided by the sender.There may be information available, but it has not been provided by the sender. Family History No Family History Records Found Diabetes Mellitus Status:Active Comments:Pater nal Grandfather. Myocardial Infarction Status:Active Comments:P aternal Grandfather. Diabetes Mellitus Status:Active Comments:Pater nal Grandfather. Myocardial Infarction Status:Active Comments:P aternal Grandfather. Diabetes Mellitus Status:Active Comments:Pater nal Grandfather. Myocardial Infarction Status:Active Comments:P aternal Grandfather. Diabetes Mellitus Status:Active Comments:Pater nal Grandfather. Myocardial Infarction Status:Active Comments:P aternal Grandfather. Diabetes Mellitus Status:Active Comments:Pater nal Grandfather. Myocardial Infarction Status:Active Comments:P aternal Grandfather. Diabetes Mellitus Status:Active Comments:Pater nal Grandfather. Myocardial Infarction Status:Active Comments:P aternal Grandfather. Diabetes Mellitus Status:Active Comments:Pater nal Grandfather. Myocardial Infarction Status:Active Comments:P aternal Grandfather. Diabetes Mellitus Status:Active Comments:Pater nal Grandfather. Myocardial Infarction Status:Active Comments:P aternal Grandfather. Diabetes Mellitus Status:Active Comments:Pater nal Grandfather. Myocardial Infarction Status:Active Comments:P aternal Grandfather. Diabetes Mellitus Status:Active Comments:Pater nal Grandfather. Myocardial Infarction Status:Active Comments:P aternal Grandfather. Diabetes Mellitus Status:Active Comments:Pater nal Grandfather. Myocardial Infarction Status:Active Comments:P aternal Grandfather. Diabetes Mellitus Status:Active Comments:Pater nal Grandfather. Myocardial Infarction Status:Active Comments:P aternal Grandfather. Diabetes Mellitus Status:Active Comments:Pater nal Grandfather. Myocardial Infarction Status:Active Comments:P aternal Grandfather. Diabetes Mellitus Status:Active Comments:Pater nal Grandfather. Myocardial Infarction Status:Active Comments:P aternal Grandfather. Diabetes Mellitus Status:Active Comments:Pater nal Grandfather. Myocardial Infarction Status:Active Comments:P aternal Grandfather. Diabetes Mellitus Status:Active Comments:Pater nal Grandfather. Myocardial Infarction Status:Active Comments:P aternal Grandfather. Diabetes Mellitus Status:Active Comments:Pater nal Grandfather. Myocardial Infarction Status:Active Comments:P aternal Grandfather. Diabetes Mellitus Status:Active Comments:Pater nal Grandfather. Myocardial Infarction Status:Active Comments:P aternal Grandfather. Diabetes Mellitus Status:Active Comments:Pater nal Grandfather. Myocardial Infarction Status:Active Comments:P aternal Grandfather. Diabetes Mellitus Status:Active Comments:Pina nal Grandfather. Myocardial Infarction Status:Active Comments:P aternal Grandfather. Diabetes Mellitus Status:Active Comments:Pina lovell Grandfather. Myocardial Infarction Status:Active Comments:P aternal Grandfather. Diabetes Mellitus Status:Active Comments:Pater nal Grandfather. Myocardial Infarction Status:Active Comments:P aternal Grandfather. Diabetes Mellitus Status:Active Comments:Pater nal Grandfather. Myocardial Infarction Status:Active Comments:P aternal Grandfather. Diabetes Mellitus Status:Active Comments:Pater nal Grandfather. Myocardial Infarction Status:Active Comments:P aternal Grandfather. Diabetes Mellitus Status:Active Comments:Pina lovell Grandfather. Myocardial Infarction Status:Active Comments:P aternal Grandfather. Diabetes Mellitus Status:Active Comments:Pina nal Grandfather. Myocardial Infarction Status:Active Comments:P aternal Grandfather. Diabetes Mellitus Status:Active Comments:Pater nal Grandfather. Myocardial Infarction Status:Active Comments:P aternal Grandfather. Diabetes Mellitus Status:Active Comments:Pater nal Grandfather. Myocardial Infarction Status:Active Comments:P aternal Grandfather. Diabetes Mellitus Status:Active Comments:Pater nal Grandfather. Myocardial Infarction Status:Active Comments:P aternal Grandfather. Diabetes Mellitus Status:Active Comments:Pater nal Grandfather. Myocardial Infarction Status:Active Comments:P aternal Grandfather. Diabetes Mellitus Status:Active Comments:Pater nal Grandfather. Myocardial Infarction Status:Active Comments:P aternal Grandfather. Diabetes Mellitus Status:Active Comments:Pater nal Grandfather. Myocardial Infarction Status:Active Comments:P aternal Grandfather. Diabetes Mellitus Status:Active Comments:Pater nal Grandfather. Myocardial Infarction Status:Active Comments:P aternal Grandfather. Diabetes Mellitus Status:Active Comments:Pater nal Grandfather. Myocardial Infarction Status:Active Comments:P aternal Grandfather. Diabetes Mellitus Status:Active Comments:Pater nal Grandfather. Myocardial Infarction Status:Active Comments:P aternal Grandfather. Diabetes Mellitus Status:Active Comments:Pater nal Grandfather. Myocardial Infarction Status:Active Comments:P aternal Grandfather. Diabetes Mellitus Status:Active Comments:Pater nal Grandfather. Myocardial Infarction Status:Active Comments:P aternal Grandfather. Diabetes Mellitus Status:Active Comments:Pater nal Grandfather. Myocardial Infarction Status:Active Comments:P aternal Grandfather. Diabetes Mellitus Status:Active Comments:Pina nal Grandfather. Myocardial Infarction Status:Active Comments:P aternal Grandfather. Diabetes Mellitus Status:Active Comments:Pater nal Grandfather. Myocardial Infarction Status:Active Comments:P aternal Grandfather. Diabetes Mellitus Status:Active Comments:Pater nal Grandfather. Myocardial Infarction Status:Active Comments:P aternal Grandfather. Diabetes Mellitus Status:Active Comments:Pater nal Grandfather. Myocardial Infarction Status:Active Comments:P aternal Grandfather. Diabetes Mellitus Status:Active Comments:Pina lovell Grandfather. Myocardial Infarction Status:Active Comments:P aternal Grandfather. Diabetes Mellitus Status:Active Comments:Pater nal Grandfather. Myocardial Infarction Status:Active Comments:P aternal Grandfather. Diabetes Mellitus Status:Active Comments:Pater nal Grandfather. Myocardial Infarction Status:Active Comments:P aternal Grandfather. Diabetes Mellitus Status:Active Comments:Pater nal Grandfather. Myocardial Infarction Status:Active Comments:P aternal Grandfather. Diabetes Mellitus Status:Active Comments:Pater nal Grandfather. Myocardial Infarction Status:Active Comments:P aternal Grandfather. Diabetes Mellitus Status:Active Comments:Pater nal Grandfather. Myocardial Infarction Status:Active Comments:P aternal Grandfather. Diabetes Mellitus Status:Active Comments:Pater nal Grandfather. Myocardial Infarction Status:Active Comments:P aternal Grandfather. Diabetes Mellitus Status:Active Comments:Pater nal Grandfather. Myocardial Infarction Status:Active Comments:P aternal Grandfather. Diabetes Mellitus Status:Active Comments:Pater nal Grandfather. Myocardial Infarction Status:Active Comments:P aternal Grandfather. Diabetes Mellitus Status:Active Comments:Pater nal Grandfather. Myocardial Infarction Status:Active Comments:P aternal Grandfather. Diabetes Mellitus Status:Active Comments:Pater nal Grandfather. Myocardial Infarction Status:Active Comments:P aternal Grandfather. Diabetes Mellitus Status:Active Comments:Pater nal Grandfather. Myocardial Infarction Status:Active Comments:P aternal Grandfather. Diabetes Mellitus Status:Active Comments:Pater nal Grandfather. Myocardial Infarction Status:Active Comments:P aternal Grandfather. Diabetes Mellitus Status:Active Comments:Pater nal Grandfather. Myocardial Infarction Status:Active Comments:P aternal Grandfather. Diabetes Mellitus Status:Active Comments:Pina nal Grandfather. Myocardial Infarction Status:Active Comments:P aternal Grandfather. Diabetes Mellitus Status:Active Comments:Pater nal Grandfather. Myocardial Infarction Status:Active Comments:P aternal Grandfather. Diabetes Mellitus Status:Active Comments:Pater nal Grandfather. Myocardial Infarction Status:Active Comments:P aternal Grandfather. Diabetes Mellitus Status:Active Comments:Pater nal Grandfather. Myocardial Infarction Status:Active Comments:P aternal Grandfather. Diabetes Mellitus Status:Active Comments:Pater nal Grandfather. Myocardial Infarction Status:Active Comments:P aternal Grandfather. Diabetes Mellitus Status:Active Comments:Pater nal Grandfather. Myocardial Infarction Status:Active Comments:P aternal Grandfather. Diabetes Mellitus Status:Active Comments:Pater nal Grandfather. Myocardial Infarction Status:Active Comments:P aternal Grandfather. Diabetes Mellitus Status:Active Comments:Pater nal Grandfather. Myocardial Infarction Status:Active Comments:P aternal Grandfather. Diabetes Mellitus Status:Active Comments:Pater nal Grandfather. Myocardial Infarction Status:Active Comments:P aternal Grandfather. History of Present Illness There may be information available, but it has not been provided by the sender.There may be information available, but it has not been provided by the sender. Summary Purpose Chief Complaint and Reason for Visit Chief Complaint Admit Date Other chronic sinusitis January 12, 2025 6 :23pm Chief Complaint Admit Date Other chronic sinusitis January 12, 2025 6 :23pm Dysphagia April 08, 2025 9: 13am Reason for Visit Admit Date Nausea April 08, 2025 9: 13am Other dysphagia April 08, 2025 9: 13am Additional Source Comments Reason for Visit (unrecogniz ed section and content) Reason For Visit Description New/Est - 1st visit with physician 01/11 Preliminary reason f or visit data, not yet signed by the author as of lower back pain Reason For Visit Description Start Date Test Result Preliminary reason f or visit data, not yet signed by the author as of lower back pain (unrecognized sect ion and content) No Status Records FoundNo Status Records FoundNo Status Records FoundNo Status Records FoundNo Status Records Found INFORMATION SOURCE (unrecogn ized section and content) DATE CREATED AUTHOR 09/12/2020 [facility] DATE CREATED AUTHOR AUTHOR'S ORGANIZ ATION 08/01/2024 [facility] DATE CREATED AUTHOR AUTHOR'S ORGANIZ ATION 10/25/[address] [facility] DATE CREATED AUTHOR AUTHOR'S ORGANIZ ATION 11/28/2024 [facility] DATE CREATED AUTHOR AUTHOR'S ORGANIZ ATION 04/21/2025 [facility] Patient Care team informatio n (unrecognized section and content) Team Status: Active Member Role Status Dates MARJORIE Tavera Primary Care Provider Active Team Status: Inactive Member Role Status Dates MARJORIE Tavera Primary Care Provider Active S tart: January 12, 2025 End: January 12, 2025 Dr. Carlito Kearney MD Attending Provider Activ e Start: January 12, 2025 End: January 12, 2025 Team Status: Active Member Role/Relationship Status Dates MARJORIE Tavera Primary Care Provider Active Team Status: Inactive Member Role/Relationship Status Dates MARJORIE Tavera Primary Care Provider Active S tart: January 12, 2025 End: January 12, 2025 Dr. Carlito Kearney MD Attending Provider Activ e Start: January 12, 2025 End: January 12, 2025 Team Status: Inactive Member Role/Relationship Status Dates MARJORIE Tavera Primary Care Provider Active S tart: April 08, 2025 End: April 08, 2025 MARJORIE Tavera Referring Provider Active Star t: April 08, 2025 End: April 08, 2025 TOOTIE Collier Attending Provider Active Start: April 08, 2025 End: April 08, 2025 Goals (unrecognized section and content) Goals may be documented in a n alternate section FOR RECORDS PERTAINING TO PATIENTS WHO ARE OR HAVE BEEN ENROLLED IN A CHEMICAL DEPENDENCY/SUBSTANCEABUSE PROGRAM, SOME INFORMATION MAY BE OMITTED. This clinical summary was aggregated from multiple sources. Caution should be exercised in using it in the provision of clinical care. This summary normalizes information from multiple sources, and as a consequence, information in this document may materially change the coding, format and clinical context of patient data. In addition, data may be omitted in some cases. CLINICAL DECISIONS SHOULD BE BASED ON THE PRIMARY CLINICAL RECORDS. [employer] provides no warranty or guarantee of the accuracy or completeness of information in this document.
== END 2025-04-24 08:03 | disposition home or self-care (01) ==
PROVIDERS: Visit Provider Internal Medicine Gastroenterology
PROC: F00ZJWZ Instrumental Swallowing and Oral Function Assessment using Swallowing Equipment (ICD-10-PCS; CPT 43235; principal; 2025-04-24 07:25)
DX: K22.4 Dyskinesia of esophagus (principal)
CPT/HCPCS: 91010

== ENCOUNTER → 2025-04-30 | Outpatient (CLI) | payer BC, SELFPAY ==
--- NOTE | 2025-04-30 12:59 | RAD_ITS ---
PROCEDURE: ESOPHAGUS DUAL CONTRAST 04/30/2025 REASON FOR EXAM: CHEST PRESSURE, DYSPEPSIA, TECHNIQUE: ESOPHAGUS DUAL CONTRAST FLUOROSCOPIC TIME: 36 seconds. Radiation dose: 19.5 mGy FLUOROGRAPHIC IMAGES: 51 COMPARISON: None FINDINGS: The patient ingested barium. Multiple images were obtained. No evidence of obstruction. No mass lesion is seen. No evidence of gastroesophageal reflux. The patient ingested a 12 mm tablet the barium without any difficulty. RAD/Esophagus Dual Contrast IMPRESSION: Unremarkable air-contrast esophagram. Reading Location: [place] [id number]
== END | disposition home or self-care (01) ==
LOC: RAD 12:32
PROVIDERS: Referring Provider Nurse Practitioner Acute Care; Visit Provider Nurse Practitioner Acute Care
DX: R13.19 Other dysphagia (principal); R11.0 Nausea
CPT/HCPCS: 74221; 74230